=== PATIENT | female | born 1930 | race Caucasian/White ===

== ENCOUNTER 2017-12-17 09:54 | Inpatient (IN) | payer OTHER, MEDICARE ==
[~2017-12-17] VITALS: Ht 157.5 cm; Wt 57.3 kg
[~2017-12-17 09:54] MED LIST: ABILIFY5 M1 PO; AMOXIL 875 MG875 MG PO; ANTIVERT 25MG #1 PAC PO; ARICEPT5 M1 PO; AUGMENTIN 875-1 EACH PO; CLONAZEPAM0.5 M2 PO; CYPROHEPTADINE H4 M1 PO; DEPAKOTE ER500 M1 PO; DEPAKOTE125 M1 PO; DIVALPROEX SOD250 M2 PO; LIPITOR10 M1 PO; OS-CAL 500+D31 EAC1 PO; SYNTHROID25 MCG PO; SYNTHROID88 MCG PO; TRAZODONE HCL100 M1 PO
--- NOTE | 2017-12-17 10:05 | ED DYSPNEA/ASTHMA COMPLAINT ---
History of Present Illness General Chief Complaint: Dyspnea (COPD, CHF, Other) Stated Complaint: BIBA SOB Source: patient, family, old records, EMS Exam Limitations: dementia Vital Signs & Intake/Output Vital Signs & Intake/Output Vital Signs Date Time Temp Pulse Resp B/P B/P Pulse O2 O2 Flow FiO2 Mean Ox Delivery Rate 12/17 1533 98.8 92 20 131/98 92 Nasal 2.0L Cannula 12/17 1352 99.0 84 26 130/60 94 Room Air 12/17 1155 97.5 87 18 136/60 94 Nasal 3.5L Cannula 12/17 1021 89 Room Air 12/17 1003 98.1 95 20 141/63 90 Room Air Allergies Coded Allergies: Influenza Virus Vaccines (UNKNOWN 07/10/17) haloperidol (UNKNOWN 07/10/17) Reconcile Medications Alendronate Sodium 70 MG TABLET 1 TAB PO QW BONE (Reported) in the morning, at least 30 minutes before the first food, beverage, or medication of the day Aripiprazole (Abilify) 5 MG TABLET 5 MG PO DAILY AC MENTAL HEALTH (Reported) Atorvastatin Calcium (Lipitor) 10 MG TABLET 10 MG PO DAILY CHOLESTEROL ( Reported) Calcium Carbonate/Vitamin D3 (Os-You 500+D3 Caplet) 500 MG-200 TABLET 600 MG PO DAILY AC BONE HEALTH (Reported) Cholecalciferol (Vitamin D3) (Vitamin D) 400 UNIT TABLET 1 TAB PO DAILY VITAMIN SUPPORT (Reported) Clonazepam 0.5 MG TABLET 1 TAB PO DAILY ANXIETY (Reported) Cyproheptadine HCl 4 MG TABLET 4 MG PO DAILY U (Reported) Divalproex Sodium 250 MG TABLET.DR 1 TAB PO AT BEDTIME NEURO (Reported) Divalproex Sodium (Depakote ER) 500 MG TAB.ER.24H 1 TAB PO DAILY NEURO ( Reported) Donepezil HCl (Aricept) 5 MG TABLET 10 MG PO DAILY DEMENTIA (Reported) Levothyroxine Sodium 75 MCG TABLET 1 TAB PO DAILY AC THYROID (Reported) Multivitamin (Daily Multiple Vitamin) 1 EACH TABLET 1 TAB PO DAILY VITAMIN SUPPORT (Reported) Trazodone HCl 100 MG TABLET 1 TAB PO QPM DEPRESSION (Reported) Triage Nurses Notes Reviewed? yes HPI: Patient brought in from home by ambulance for increasing shortness of breath and weakness. Family states that the patient has been unable to get out of bed for the past 2-3 days. Patient has dementia and is unable to provide any history. Upon EMS arrival patient had a room air saturation of 89% but it increases 94% on oxygen. Past History Travel History Traveled to [place] past 21 day No Medical History Any Pertinent Medical History? 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 No Review of Systems Review of Systems Constitutional: Reports: see HPI. Physical Exam Physical Exam General Appearance: well developed/nourished, alert, awake, anxious, moderate distress Head: atraumatic, normal appearance Eyes: Bilateral: PERRL, EOMI. Ears, Nose, Throat: normal pharynx, normal ENT inspection, hearing grossly normal Neck: normal inspection, supple, JVD Respiratory: crackles, rales, respiratory distress Cardiovascular: regular rate/rhythm, normal peripheral pulses Gastrointestinal: normal bowel sounds, soft, non-tender Extremities: normal inspection, normal capillary refill, normal range of motion Neurologic/Psych: awake, alert, normal mood/affect Skin: intact, normal color, warm/dry Core Measures ACS in differential dx? No CVA/TIA Diagnosis No Sepsis Present: No Sepsis Focused Exam Completed? No Progress Differential Diagnosis: bronchitis, CHF, COPD, pneumonia Plan of Care: Orders Procedure Date/time Status Heart Healthy Diet 12/17 D Active TROPONIN LEVEL 12/17 1706 Active EKG 12/17 1706 Active Pathway - chart 12/17 1539 Active House Staff 12/17 1539 Active Code Status 12/17 1539 Active Patient Data 12/17 1313 Active Hsieh, Insertion/Removal/Asses 12/17 1306 Active CULTURE,URINE 12/17 1306 Active ED Holding Orders 12/17 1253 Active Admit to inpatient 12/17 1253 Active Vital Signs 12/17 1253 Active Code Status 12/17 1253 Complete THYROID STIMULATING HORMONE 12/17 1054 Active THYROXINE 12/17 1054 Active Telemetry/Director Of Cardiac Rehabilitation 12/17 1005 Active URINALYSIS 12/17 1005 Complete COMPREHENSIVE METABOLIC PANEL 12/17 1005 Active CBC WITHOUT DIFFERENTIAL 12/17 1005 Complete B-TYPE NATRIURETIC PEP (BNP) 12/17 1005 Active EKG 12/17 1005 Active Intake & Output 12/17 1001 Active PT Evaluate & Treat 12/17 UNK Active Lab Add-on Test 12/17 UNK Active Weight 12/17 UNK Active VTE Mechanical Prophylaxis 12/17 UNK Active MISTAKE 12/17 UNK Complete Intake & Output 12/17 UNK Active Current Medications Sig/Cordell Start time Last Medication Dose Stop Time Status Admin Alendronate Sodium 70 MG Larose@0700 12/20 07 AC (Fosamax) Atorvastatin Calcium 10 MG 1700 12/18 170 AC (Lipitor) Calcium/Vitamin D 1 TAB DAILY 12/18 09 AC (Caltrate 600 + D) Cholecalciferol 400 IU DAILY 12/18 09 AC (Vitamin D) Clonazepam 0.5 MG DAILY 12/18 09 AC (KlonoPIN) 12/25 0859 Cyproheptadine HCl 4 MG DAILY 12/18 09 AC (Periactin 4 MG Tab.) Divalproex Sodium 500 MG DAILY 12/18 09 AC (Depakote) Donepezil HCl 10 MG DAILY 12/18 09 AC (Aricept) Enoxaparin Sodium 40 MG DAILY 12/18 09 AC (Lovenox) Furosemide 40 MG DAILY 12/18 09 AC (Lasix) Multivitamins 1 TAB DAILY 12/18 09 AC Therapeutic (Theragran-M Vitamins Tabs) Aripiprazole 5 MG DAILY AC 12/18 07 AC (Abilify) Levothyroxine Sodium 0.075 MG DAILY AC 12/18 07 AC (Synthroid) Divalproex Sodium 250 MG AT BEDTIME 12/17 2099 AC (Depakote) Trazodone HCl 100 MG QPM 12/17 2099 AC (Desyrel) Laboratory Tests 12/17/17 1530: Urinalysis LIGHT H, Urine Color YEL, Urine Clarity HAZY H, Urine pH 6.5, Ur Specific [place] 1.010, Urine Protein NEG, Urine Ketones NEG, Urine Nitrite NEG, Urine Bilirubin NEG, Urine Urobilinogen 0.2, Ur Leukocyte Esterase SMALL H, Ur Microscopic SEDIMENT EXAMINED, Urine RBC RARE, Urine WBC RARE, Ur Epithelial Cells FEW, Urine Bacteria RARE H, Urine Hemoglobin TRACE-INTACT, Urine Glucose NEG 12/17/17 1054: Anion Gap 9, Estimated GFR 60, BUN/Creatinine Ratio 24.4, Glucose 99, Calcium 8.5, Total Bilirubin 0.5, AST 35, ALT 15, Alkaline Phosphatase 56, Pro-B- Natriuretic Pept 9520 H, Total Protein 6.1 L, Albumin 3.3 L, Globulin 2.8, Albumin/Globulin Ratio 1.2, TSH Pending, Thyroxine (T4) 7.7 12/17/17 1016: CBC w Diff NO MAN DIFF REQ, RBC 5.34, MCV 88.7, MCH 28.8, MCHC 32.4 L, RDW 15.5 H, MPV 9.3, Gran % 82.1 H, Lymphocytes % 6.2 L, Monocytes % 11.5 H, Eosinophils % 0, Basophils % 0.2, Absolute Granulocytes 5.2, Absolute Lymphocytes 0.4 L, Absolute Monocytes 0.7 H, Absolute Eosinophils 0, Absolute Basophils 0 Microbiology 12/17 1530 URINE ROUT: Urine Culture - RECD Diagnostic Imaging: Viewed by Me: Radiology Read. Discussed w/RAD: Radiology Read. CXR Impression: PATIENT: REJI CALDERON PRESENT AGE: 87 PATIENT ACCOUNT NO: [id number] : 32 LOCATION: [facility] ORDERING PHYSICIAN: Koko Bear MD SERVICE DATE: 12/17/17-1005 EXAM TYPE: RAD - XRY- PORTABLE CHEST XRAY EXAMINATION: XR PORTABLE CHEST CLINICAL INFORMATION: Pulmonary edema. COMPARISON: Chest radiograph 07/09/2017. TECHNIQUE: Portable frontal view of the chest was obtained. FINDINGS: The cardiac silhouette is at upper limits of normal size and there is hilar vascular engorgement. Mild prominence of interstitial markings. No overt consolidative disease. Trace effusions. Upper mediastinal contours are normal. No acute osseous finding. Multiple surgical clips along left lateral chest wall noted. IMPRESSION: Hilar vascular engorgement, early interstitial edema, and trace effusions. No overt airspace disease. DICTATED BY: Martina CHRISTINE,Geronimo Goff DATE/TIME DICTATED:12/17/17 / 1114 COIN MACHINE OPERATOR:CHICHO DATE/TIME TRANSCRIBED:12/17/17 / 1114 CONFIDENTIAL, DO NOT COPY WITHOUT APPROPRIATE AUTHORIZATION. <Electronically signed in Other Vendor System> SIGNED BY: Geronimo Mack MD 12/17/17 1124 Initial ED EKG: NSR, LVH, no ST T wave changes Prior EKG: unchanged Rhythm Strip: normal sinus rhythm Departure Departure Disposition: STILL A PATIENT Condition: Stable Clinical Impression Primary Impression: Pulmonary edema Referrals: Louis CHRISTINE,Gregory Lakhani (PCP/Family) Departure Forms: Customer Survey General Discharge Information Admission Note Spoke With: Adiel Nick MD Documentation of Exam: Documentation of any treatments & extenuating circumstances including Concerns Regarding Discharge (functional status, medication knowledge or non-compliance, living conditions, etc.) that warrant an admission rather than observation: [IV DIURESIS, WILL NEED TO BE GENTLE GIVEN HERAORTIC STENOSIS,CARDIOLOGY CONSULTATION, TELE MONITORING] Critical Care Note Critical Care Note Critical Care Time: non-applicable
[2017-12-17 10:38] LABS: ABSOLUTE BASOPHIL COUNT 0 /CUMM (0.0-0.2); ABSOLUTE EOSINOPHIL COUNT 0 /CUMM (0.0-0.7); ABSOLUTE GRANULOCYTE CT 5.2 /CUMM (1.4-6.5); ABSOLUTE LYMPH COUNT 0.4 /CUMM (1.2-3.4); ABSOLUTE MONOCYTE COUNT 0.7 /CUMM (0.10-0.60); BASOPHIL % 0.2 % (0.0-2.0); EOSINOPHIL % 0 % (0-5); GRANULOCYTE % 82.1 % (42.2-75.2); HEMATOCRIT 47.4 % (37-47); MEAN CORPUSCULAR HGB 28.8 PG (27.0-31.0); MEAN CORPUSCULAR HGB CONC 32.4 G/DL (33.0-37.0); MEAN CORPUSCULAR VOLUME 88.7 FL (81.0-99.0); MEAN PLATELET VOLUME 9.3 FL (7.4-10.4); PLATELET COUNT 147 /CUMM (130-400); RBC DISTRIBUTION WIDTH 15.5 % (11.5-14.5); RED BLOOD CELL CT 5.34 /CUMM (4.20-5.40); WHITE BLOOD CELL COUNT 6.3 /CUMM (4.8-10.8)
[2017-12-17] MEDS ORDERED: ALENDRONATE SOD70 M2 PO (11:08)
[2017-12-17] MEDS ORDERED: DAILY MULTIPLE1 EACH PO (11:11)
[2017-12-17] MEDS ORDERED: LEVOTHYROXINE75 MCG PO (11:11)
[2017-12-17] MEDS ORDERED: VITAMIN D400 UNI2 PO (11:14)
--- NOTE | 2017-12-17 11:24 | RADIOLOGY REPORT ---
EXAMINATION: XR PORTABLE CHEST CLINICAL INFORMATION: Pulmonary edema. COMPARISON: Chest radiograph 07/09/2017. TECHNIQUE: Portable frontal view of the chest was obtained. FINDINGS: The cardiac silhouette is at upper limits of normal size and there is hilar vascular engorgement. Mild prominence of interstitial markings. No overt consolidative disease. Trace effusions. Upper mediastinal contours are normal. No acute osseous finding. Multiple surgical clips along left lateral chest wall noted. IMPRESSION: Hilar vascular engorgement, early interstitial edema, and trace effusions. No overt airspace disease.
--- NOTE | 2017-12-17 14:58 | History & Physical ---
Eleuterio Barajas MD 12/17/17 4295: General Information and HPI MD Statement: I have seen and personally examined REJI CALDERON and documented this H&P. The patient is a 87 year old F who presented with a patient stated chief complaint of dyspnea. Source of Information: family, old records Exam Limitations: unable to give history, clinical condition, poor historian History of Present Illness: 87 year old female with past medical history significant for HLD, bipolar, Graves' disease, Alzheimer dementia, depression, history of breast cancer, hypertension, severe aortic stenosis and recently admitted with altered mental status, hypothyroidism, and right lower extremity cellulitis treated with a course of antibiotics. The patient was brought in from home by ambulance for increasing shortness of breath with a cough and progressive weakness. The patient reportedly ambulates with a walker at baseline but has now been unable to get out of bed for the past several days. The patient has dementia and is unable to provide any history. She was saturating in the high 80s on room air and was started on supplemental oxygen in the ED and given one dose 40mg IV lasix. Vitals signs were normal, labs were notable for elevated proBNP, BUN, and TSH but otherwise normal. Her chest x-ray showed vascular congestion and she was admitted to telemetry for congestive heart failure. According to her family, she has gradually deconditioning over the past few months acutely worsening over the past week. The patient's reports that she is not eating, and drinking well, unable to ambulate. The patient hasn't complained of any significant chest pain. She can lay flat without dyspnea. Review of systems was essentially negative other than noted above according to the family. Allergies/Medications Allergies: Coded Allergies: Influenza Virus Vaccines (UNKNOWN 07/10/17) haloperidol (UNKNOWN 07/10/17) Home Med list Alendronate Sodium 70 MG TABLET 1 TAB PO QW BONE (Reported) in the morning, at least 30 minutes before the first food, beverage, or medication of the day Aripiprazole (Abilify) 5 MG TABLET 5 MG PO DAILY AC MENTAL HEALTH (Reported) Atorvastatin Calcium (Lipitor) 10 MG TABLET 10 MG PO DAILY CHOLESTEROL ( Reported) Calcium Carbonate/Vitamin D3 (Os-You 500+D3 Caplet) 500 MG-200 TABLET 600 MG PO DAILY AC BONE HEALTH (Reported) Cholecalciferol (Vitamin D3) (Vitamin D) 400 UNIT TABLET 1 TAB PO DAILY VITAMIN SUPPORT (Reported) Clonazepam 0.5 MG TABLET 1 TAB PO DAILY ANXIETY (Reported) Cyproheptadine HCl 4 MG TABLET 4 MG PO DAILY U (Reported) Divalproex Sodium 250 MG TABLET.DR 1 TAB PO AT BEDTIME NEURO (Reported) Divalproex Sodium (Depakote ER) 500 MG TAB.ER.24H 1 TAB PO DAILY NEURO ( Reported) Donepezil HCl (Aricept) 5 MG TABLET 10 MG PO DAILY DEMENTIA (Reported) Levothyroxine Sodium 75 MCG TABLET 1 TAB PO DAILY AC THYROID (Reported) Multivitamin (Daily Multiple Vitamin) 1 EACH TABLET 1 TAB PO DAILY VITAMIN SUPPORT (Reported) Trazodone HCl 100 MG TABLET 1 TAB PO QPM DEPRESSION (Reported) Compliance With Home Meds: GOOD Past History Travel History Traveled to [place] past 21 day No Medical History Neurological: Alzheimer's disease, dementia EENT: EYES SURGERY FOR GRAVES Cardiovascular: aortic stenosis, hypertension Respiratory: NONE Gastrointestinal: NONE Hepatic: NONE Renal: NONE Musculoskeletal: NONE Psychiatric: bipolar disease, depression Endocrine: Grave's disease, hypothyroidism Blood Disorders: NONE Cancer(s): 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 Ambulation: walker IADLs Needs Assist: shopping, housework, finances, food prep, telephone, transportation, medication admin. Review of Systems Review of Systems Constitutional: Reports: malaise, weakness. Denies: chills, fever. EENTM: Reports: no symptoms. Cardiovascular: Denies: chest pain, orthopena, peripheral edema. Respiratory: Reports: cough, short of breath, sputum production, wheezing. GI: Denies: abdominal pain, diarrhea, nausea, vomiting. Genitourinary: Reports: no symptoms. Musculoskeletal: Reports: no symptoms. Skin: Reports: no symptoms. Neurological/Psychological: Reports: no symptoms. Hematologic/Endocrine: Reports: no symptoms. Immunologic/Allergic: Reports: no symptoms. All Other Systems: Reviewed and Negative Exam & Diagnostic Data Last 24 Hrs of Vital Signs/I&O Vital Signs Date Time Temp Pulse Resp B/P B/P Pulse O2 O2 Flow FiO2 Mean Ox Delivery Rate 12/17 1352 99.0 84 26 130/60 94 Room Air 12/17 1155 97.5 87 18 136/60 94 Nasal 3.5L Cannula 12/17 1021 89 Room Air 12/17 1003 98.1 95 20 141/63 90 Room Air Intake & Output 12/17 1600 12/17 0800 12/17 0000 Intake Total Output Total Balance Patient 63.503 kg Weight Weight Estimated Measurement Method Physical Exam General Appearance Cooperative, Mild Distress, mild tachypnea on supplemental oxygen Cardiovascular Regular Rate, Normal S1, Normal S2, systolic murmur 2/6 Lungs diminished bibasilarly, transmitted upper airway sounds, no wheeze Abdomen Normal Bowel Sounds, Soft, No Tenderness, No Masses, midline incision scar Extremities No Clubbing, No Cyanosis, No Edema, No Tenderness/Swelling, diminished right dorsalis pedal pulse cold right foot, sensation and motor function intact Last 24 Hrs of Labs/Nicolás: Laboratory Tests 12/17/17 1054: Anion Gap 9, Estimated GFR 60, BUN/Creatinine Ratio 24.4, Glucose 99, Calcium 8.5, Total Bilirubin 0.5, AST 35, ALT 15, Alkaline Phosphatase 56, Pro-B- Natriuretic Pept 9520 H, Total Protein 6.1 L, Albumin 3.3 L, Globulin 2.8, Albumin/Globulin Ratio 1.2 12/17/17 1016: CBC w Diff NO MAN DIFF REQ, RBC 5.34, MCV 88.7, MCH 28.8, MCHC 32.4 L, RDW 15.5 H, MPV 9.3, Gran % 82.1 H, Lymphocytes % 6.2 L, Monocytes % 11.5 H, Eosinophils % 0, Basophils % 0.2, Absolute Granulocytes 5.2, Absolute Lymphocytes 0.4 L, Absolute Monocytes 0.7 H, Absolute Eosinophils 0, Absolute Basophils 0 Microbiology 12/17 1306 URINE ROUT: Urine Culture - ORD Diagnostic Data EKG Results sinus rhythm lad lvh CXR Results The cardiac silhouette is at upper limits of normal size and there is hilar vascular engorgement. Mild prominence of interstitial markings. No overt consolidative disease. Trace effusions. Upper mediastinal contours are normal. No acute osseous finding. Multiple surgical clips along left lateral chest wall noted. Other Results Echocardiogram 07/2017 CONCLUSIONS Normal global left ventricular size, wall thickness, systolic function with no obvious regional wall motion abnormalities. Left ventricular ejection fraction is estimated at >65 %. Mild left atrial dilatation. Mild thickening/calcification of the mitral valve leaflets. Mild to moderate mitral annular calcification. No mitral regurgitation. Diffuse thickening of the aortic valve cusps with reduced excursion. Doppler not adequate for evaluation of aortic stenosis. No aortic regurgitation. Unable to estimate the right ventricular systolic pressure. Aortic arch not well visualized. Assessment/Plan Assessment: 87 year old female with PMH of hyperlipidemia, bipolar, Graves' disease now hypothyroid, Alzheimer dementia, depression, history of breast cancer, hypertension, severe aortic stenosis presents with failure to thrive, cough and dyspnea. Dyspnea: likely secondary to HFpEF and severe aortic stenosis Was hypoxic on room air 88-89%, started on supplemental oxygen Received 40mg IV lasix x 1 dose in the ED proBNP 9500, chest x-ray hilar vascular engorgement, early interstitial edema, trace effusions. No overt airspace disease. No fever or leukocytosis suggestive of infection Check serial troponins and EKGs Admit to telemetry for rhythm monitoring Cardiology consultation Continue lasix 40mg IV daily Echocardiogram 07/2017 CONCLUSIONS Normal global left ventricular size, wall thickness, systolic function with no obvious regional wall motion abnormalities. Left ventricular ejection fraction is estimated at >65 %. Mild left atrial dilatation. Mild thickening/calcification of the mitral valve leaflets. Mild to moderate mitral annular calcification. No mitral regurgitation. Diffuse thickening of the aortic valve cusps with reduced excursion. Doppler not adequate for evaluation of aortic stenosis. No aortic regurgitation. Unable to estimate the right ventricular systolic pressure. Aortic arch not well visualized. Aortic stenosis Echocardiogram moderate to severe aortic stenosis Calcified aortic stenosis with a peak gradient of 50 mmHg, a mean gradient of 36 mmHg Aortic valve area 1.0-1.1 cm Cardiology consulted Avoid hypotension Normotensive on presentation Hypothyroidism: Continue synthroid 75mcg although her synthroid was increased to 88mcg on prior discharge in July 2017, TSH elevated Mental health: Continue abilify, trazodone, clonazepam, depakote, and donepezil Swallow evaluation PT consult DVT ppx-lovenox 40mg subcutaneous daily DNR/DNI As Ranked By This Provider Problem List: 1. Pulmonary edema 2. Aortic stenosis 3. Gait instability Core Measures/Misc (04/19) Acute Coronary Syndrome ACS Diagnosis: No Congestive Heart Failure Congestive Heart Failure Diagnosis Yes Last Known EF % 65 Cerebrovascular Accident CVA/TIA Diagnosis: No VTE (View Protocol) VTE Risk Factors Age>40 No Mechanical VTE Prophylaxis d/t N/A MechProphylax Ordered No VTE Pharm Prophylaxis d/t NA PharmProphylax ordered Sepsis (View protocol) Sepsis Present: No Dominic Lew 12/17/17 1653: Resident Review Statement Resident Statement: examined this patient, discussed with programming intern, agreed with programming intern, discussed with family, reviewed EMR data (avail), reviewed images Other Findings: 86-year-old with a medical history of hyperlipidemia, bipolar, Graves' disease , Alzheimer dementia, depression, history of breast cancer, hypertension, brought in by for evaluation of worsening deconditioning over the past few months which has been severe since the past few days. Today she was to walk on her own and her had to escort her from the bedroom to the bathroom he has also had been having difficulty giving her her medications and he has noticed decreased p.o. intake. Denies fever, pain, constipation, dysuria, fall, worsening swelling of legs. She is able to lie down flat. Her is the main caregiver and has some aide that comes in for a few hours during the day. Vitals on admission temperature 99, heart rate 84, respiratory 26, blood pressure 130/60, she was noted to saturate 89% on room air improved to 92% on 2 L. Examination pertinent for cachectic looking woman, CVS examination pertinent for systolic murmur heard in all areas loudest in the aortic area and radiation to right carotids bibasilar crackles. Rest examination as above. CBC and BEP unremarkable, proBNP 9520 Chest x-ray shows central vascular engorgement and interstitial edema, EKG normal sinus rhythm, LVH with left axis deviation heart rate of 85 QTC 450. Problem list: ?Acute on chronic congestive heart failure Aortic stenosis Levothyroxine Bipolar Alzheimer's Deconditioning Plan we will admit to telemetry floor for continuous cardiac monitoring, vitals per protocol Follow-up echocardiogram, we will trend troponin EKG We will continue with IV diuresis, strict I's and O's accurate daily weights cardio consult Follow-up thyroid function test will continue rest of her home medications Heart healthy diet DVT prophylaxis subcu Lovenox PT to evaluate and treat CODE STATUS DNR/DNI, family does not wish any aggressive measures including feeding tubes or central lines Diego Guidry MD 12/17/17 2008: Attending MD Review Statement Attending Statement Attending MD Statement: examined this patient, discuss w/resident/PA/SENIOR SYSTEMS ARCHITECT, agreed w/resident/PA/SENIOR SYSTEMS ARCHITECT, reviewed EMR data (avail) Attending Assessment/Plan: Agree with resident plan. Will start IV diuresis with care not to overdiurese given , cardiology consult, urine culture, continue home meds, eventual PT eval, DVT PPx
[2017-12-17 18:53] VITALS: BP 108/70
--- NOTE | 2017-12-17 19:09 | Cons- Cardiology ---
General Information and HPI Consulting Request Date of Consult: 12/17/17 Requested By: Diego Guidry MD Reason for Consult: Heart failure, aortic stenosis History of Present Illness: The patient is an 87-year-old female with history of hypertension, hyperlipidemia, moderate to severe aortic stenosis, and chronic diastolic heart failure who presents with shortness of breath and cough. The patient ambulates with a walker at baseline, however recently she has had increasing shortness of breath and she has been unable to get out of bed for the past several days. The patient is able to give only limited history secondary to dementia. She was noted on presentation to have decreased oxygen saturation and evidence of congestive heart failure. She was treated in the emergency department with IV Lasix, and she was admitted for further management. 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 She has been gradually decreasing her activity over the past few months with acute worsening over the past week. She has been unable to ambulate, and has recently had poor p.o. intake. She has been noted to have recent coughing. No chest pain. No palpitations. No syncope. No orthopnea. No nausea or vomiting. No lightheadedness or dizziness. Allergies/Medications Allergies: Coded Allergies: Influenza Virus Vaccines (UNKNOWN 07/10/17) haloperidol (UNKNOWN 07/10/17) Home Med List: Alendronate Sodium 70 MG TABLET 1 TAB PO QW BONE (Reported) in the morning, at least 30 minutes before the first food, beverage, or medication of the day Aripiprazole (Abilify) 5 MG TABLET 5 MG PO DAILY AC MENTAL HEALTH (Reported) Atorvastatin Calcium (Lipitor) 10 MG TABLET 10 MG PO DAILY CHOLESTEROL ( Reported) Calcium Carbonate/Vitamin D3 (Os-You 500+D3 Caplet) 500 MG-200 TABLET 600 MG PO DAILY AC BONE HEALTH (Reported) Cholecalciferol (Vitamin D3) (Vitamin D) 400 UNIT TABLET 1 TAB PO DAILY VITAMIN SUPPORT (Reported) Clonazepam 0.5 MG TABLET 1 TAB PO DAILY ANXIETY (Reported) Cyproheptadine HCl 4 MG TABLET 4 MG PO DAILY U (Reported) Divalproex Sodium 250 MG TABLET.DR 1 TAB PO AT BEDTIME NEURO (Reported) Divalproex Sodium (Depakote ER) 500 MG TAB.ER.24H 1 TAB PO DAILY NEURO ( Reported) Donepezil HCl (Aricept) 5 MG TABLET 10 MG PO DAILY DEMENTIA (Reported) Levothyroxine Sodium 75 MCG TABLET 1 TAB PO DAILY AC THYROID (Reported) Multivitamin (Daily Multiple Vitamin) 1 EACH TABLET 1 TAB PO DAILY VITAMIN SUPPORT (Reported) Trazodone HCl 100 MG TABLET 1 TAB PO QPM DEPRESSION (Reported) Current Medications: Current Medications Sig/Cordell Start time Last Medication Dose Route Stop Time Status Admin Alendronate Sodium 70 MG Larose@0700 12/20 0700 AC PO Aripiprazole 5 MG DAILY AC 12/18 07 AC PO Atorvastatin Calcium 10 MG 1700 12/18 1700 AC PO Calcium/Vitamin D 1 TAB DAILY 12/18 09 AC PO Cholecalciferol 400 IU DAILY 12/18 09 AC PO Clonazepam 0.5 MG DAILY 12/18 09 AC PO 12/25 0859 Cyproheptadine HCl 4 MG DAILY 12/18 09 AC PO Divalproex Sodium 500 MG DAILY 12/18 09 AC PO Divalproex Sodium 250 MG AT BEDTIME 12/17 2100 AC PO Donepezil HCl 10 MG DAILY 12/18 09 AC PO Enoxaparin Sodium 40 MG DAILY 12/18 09 AC SC Furosemide 40 MG DAILY 12/18 09 AC IV Furosemide 0 .STK-MED ONE 12/17 1303 DC IV Furosemide 40 MG ONCE ONE 12/17 1245 DC 12/17 IV 12/17 1246 1308 Levothyroxine Sodium 0.075 MG DAILY AC 12/18 0700 AC PO Multivitamins 1 TAB DAILY 12/18 0900 AC Therapeutic PO Trazodone HCl 100 MG QPM 12/17 2100 AC PO Review of Systems Review of Systems: No fever. No chills. No rash. No tremor. No melena. All other systems were reviewed, and were noted to be negative. 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 Family history was reviewed with the patient and is negative for known premature cardiac disease. Psychosocial History Where Do You Live? Home Services at Home: None Smoking Status: Unknown If Ever Smoked Functional Ability ADLs Needs Assist: dressing, eating, toileting, bathing. Ambulation: walker IADLs Needs Assist: shopping, housework, finances, food prep, telephone, transportation, medication admin. ECHO Results (as available) Report: CONCLUSIONS Normal global left ventricular size, wall thickness, systolic function with no obvious regional wall motion abnormalities. Left ventricular ejection fraction is estimated at >65 %. Mild left atrial dilatation. Mild thickening/calcification of the mitral valve leaflets. Mild to moderate mitral annular calcification. No mitral regurgitation. Diffuse thickening of the aortic valve cusps with reduced excursion. Doppler not adequate for evaluation of aortic stenosis. No aortic regurgitation. Unable to estimate the right ventricular systolic pressure. Aortic arch not well visualized. Exam & Diagnostic Data Vital Signs and I&O Vital Signs Date Time Temp Pulse Resp B/P B/P Pulse O2 O2 Flow FiO2 Mean Ox Delivery Rate 12/17 1630 92 Nasal 4.0L Cannula 12/17 1533 98.8 92 20 131/98 92 Nasal 2.0L Cannula 12/17 1352 99.0 84 26 130/60 94 Room Air 12/17 1155 97.5 87 18 136/60 94 Nasal 3.5L Cannula 12/17 1021 89 Room Air 12/17 1003 98.1 95 20 141/63 90 Room Air Intake & Output 12/17 1600 12/17 0800 12/17 0000 12/16 1600 12/16 0800 12/16 0000 Intake Total Output Total 100 Balance -100 Output, Urine 100 Patient 140 lb Weight Weight Estimated Measurement Method Physical Exam: Gen: The patient is in no acute distress HEENT: Normal nose, ears, and oropharynx. Pupils equal bilaterally. Conjunctiva normal. Neck: Supple with no JVD, no masses, and no thyromegaly Lungs: Bilateral rales with normal respiratory effort Heart: RRR, S1, S2, 2/6 systolic murmur. No peripheral edema, 2+ pulses in the lower extremities bilaterally Abdomen: Soft, nontender, no masses. No hepatomegaly. No splenomegaly Extremities: No clubbing or cyanosis. Normal muscle strength in the upper and lower extremities Skin: Normal skin turgor with no skin ulcers or lesions noted. Neuro: Cranial nerves intact. Sensation intact Psych: Alert and oriented x 3 with appropriate affect Labs/Nicolás Results: Laboratory Tests 12/17 12/17 12/17 1800 1530 1054 Chemistry Sodium (137 - 145 mmol/L) 141 Potassium (3.5 - 5.1 mmol/L) 4.6 Chloride (98 - 107 mmol/L) 102 Carbon Dioxide (22 - 30 mmol/L) 30 Anion Gap (5 - 16) 9 BUN (7 - 17 mg/dL) 22 H Creatinine (0.5 - 1.0 mg/dL) 0.9 Estimated GFR (>60 ml/min) 60 BUN/Creatinine Ratio (7 - 25 %) 24.4 Glucose (65 - 99 mg/dL) 99 Calcium (8.4 - 10.2 mg/dL) 8.5 Total Bilirubin (0.2 - 1.3 mg/dL) 0.5 AST (14 - 36 U/L) 35 ALT (9 - 52 U/L) 15 Alkaline Phosphatase (<127 U/L) 56 Troponin I Pending Xks-L-Myrelpmcess Pept (<125 pg/mL) 9520 H Total Protein (6.3 - 8.2 g/dL) 6.1 L Albumin (3.5 - 5.0 g/dL) 3.3 L Globulin (1.9 - 4.2 gm/dL) 2.8 Albumin/Globulin Ratio (1.1 - 2.2 %) 1.2 TSH (0.270 - 4.200 uIU/mL) 4.650 H Thyroxine (T4) (4.5 - 10.9 ug/dL) 7.7 Urines Urinalysis LIGHT H Urine Color (YEL,AMB,STR) YEL Urine Clarity (CLEAR) HAZY H Urine pH (5.0 - 8.0) 6.5 Ur Specific [place] (1.001 - 1.035) 1.010 Urine Protein (NEG,<30 MG/DL) NEG Urine Ketones (NEG) NEG Urine Nitrite (NEG) NEG Urine Bilirubin (NEG) NEG Urine Urobilinogen (0.1 - 1.0 EU/dl) 0.2 Ur Leukocyte Esterase (NEG) SMALL H Ur Microscopic SEDIMENT EXAMINED Urine RBC (0 - 5 /HPF) RARE Urine WBC (0 - 2 /HPF) RARE Ur Epithelial Cells (NONE,FEW) FEW Urine Bacteria (NEG/NONE) RARE H Urine Hemoglobin (NEG) TRACE-INTACT Urine Glucose (N MG/DL) NEG 12/17 1016 Hematology CBC w Diff NO MAN DIFF REQ WBC (4.8 - 10.8 /CUMM) 6.3 RBC (4.20 - 5.40 /CUMM) 5.34 Hgb (12.0 - 16.0 G/DL) 15.4 Hct (37 - 47 %) 47.4 H MCV (81.0 - 99.0 FL) 88.7 MCH (27.0 - 31.0 PG) 28.8 MCHC (33.0 - 37.0 G/DL) 32.4 L RDW (11.5 - 14.5 %) 15.5 H Plt Count (130 - 400 /CUMM) 147 MPV (7.4 - 10.4 FL) 9.3 Gran % (42.2 - 75.2 %) 82.1 H Lymphocytes % (20.5 - 51.1 %) 6.2 L Monocytes % (1.7 - 9.3 %) 11.5 H Eosinophils % (0 - 5 %) 0 Basophils % (0.0 - 2.0 %) 0.2 Absolute Granulocytes (1.4 - 6.5 /CUMM) 5.2 Absolute Lymphocytes (1.2 - 3.4 /CUMM) 0.4 L Absolute Monocytes (0.10 - 0.60 /CUMM) 0.7 H Absolute Eosinophils (0.0 - 0.7 /CUMM) 0 Absolute Basophils (0.0 - 0.2 /CUMM) 0 Diagnostic Data EKG Results EKG tracings independently reviewed, and reveals sinus tachycardia at 94 bpm, frequent premature atrial contractions, left atrial abnormality, left ventricular hypertrophy, inferior infarct age undetermined CXR Results Hilar vascular engorgement, early interstitial edema, and trace effusions. No overt airspace disease. Other Results Echocardiogram 07/10/17: Normal global left ventricular size, wall thickness, systolic function with no obvious regional wall motion abnormalities. Left ventricular ejection fraction is estimated at >65 %. Mild left atrial dilatation. Mild thickening/calcification of the mitral valve leaflets. Mild to moderate mitral annular calcification. No mitral regurgitation. Aortic arch not well visualized. Diffuse thickening of the aortic valve cusps with reduced excursion. [id number] aortic stenosis. No aortic regurgitation. Assessment/Plan Assessment/Plan The patient is an 86-year-old female with history of hypertension, moderate to severe aortic stenosis, and chronic diastolic heart failure brought to the hospital with shortness of breath and decreased oxygen saturation. Chest x-ray and elevated proBNP are consistent with acute on chronic diastolic heart failure. Recommendations: * Diurese with Lasix 40 mg IV daily * Follow input and output with daily weights * Check basic blood profile daily * Repeat echocardiogram to reevaluate aortic stenosis Consult Acknowledgment - Thank you for your consult request.
[2017-12-17 20:22] VITALS: BP 118/80
--- NOTE | 2017-12-17 20:43 | Event Note ---
Event Note Event Note: With troponin of 4.5, no EKG changes and patient still not complaining of any chest pain/pressure, I spoke with naphthalene operator Dr Rawls, [facility] suggested full dose ASA once, ASA 81 mg from morning, IV Heparin drip per ACS protocol, and trend troponin and EKG. Any changs will be notified to Dr Rawls immediately. Orders placed and nursing staff notified. I also added statin on the regimen. Betablocker avoided due to CHF exacerbation. Of note, troponin was not ordered in the ED and the lab add-on for troponin was not possibe due to insufficient amount of sample per lab staff. Attending Dr Villafuerte notified too. 2040 hrs: I was notified by nursing staff that patient's HR was in 160s. Assessment Patient did not appear in any distress and speaking in full sentences, has nasal canula, HR irregularly irregular in 160s, BP by Doppler SBP 75 mm Hg, STAT EKG- atrial fibrillation with RVR @ 160, V3-[address]-depression. Right side precordial EKG done, no ST-segment mirror image but 1-1.[address] elevation on V4-6. Attending and Designated Broker notified, and per naphthalene operator Dr Rawls, decision to transfer the patient to ICU was made. Patient has severe aortic stenosis and is preload dependent. Due to Acute CHF, she was diuresed with total of 80 mm Hg today. Temp was 99.9 F today. Plan as follows: * 250 ml of IV NS STAT * Recheck her vitals after the bolus and if this decreases her HR and improves her BP, we will reassess for further meaures. Will call Dr Rawls then per his instructions. * If her HR remains high, we will have to start her on rate controlling med like Cardizem, Verapamil, or Amiodarone, with caution about her BP as all three can lower her BP. * Stock of Cardizem verified with pharmacist to be enough for bolus and drip tonight, else enough Verapamil and Amiodarone available. * IV Acetaminophen 1 gm given for fever, which might help reduce her tachycardia as well. * Blood culture (2 sets from vein) ordered. * Lactic acid ordered x2, will follow. * Troponin and EKG at midnight and at 6 am still on as planned. * Family member notified by PGY1 resident Dr Nelly Jackson. They agreed to central line and fluid/med resuscitation, but no intuation or cardiac resuscitation in case of emergency. 2129 hrs: Dr Desir (PGY3 resident in the ICU) made aware of the transfer along with Dr Villafuerte. 2144 hrs: Patient is physically in the ICU. Getting the first set of vitals here.
--- NOTE | 2017-12-17 22:37 | Event Note ---
Event Note Event Note: Background: Patient admitted today for CHF exacerbation, shereceived aggressive hydration in the setting of sever aortic stenosis. BP remains in 70's systolic with doppler, despite given 250ml bolus NS, her HR remained in 150's. Spoke with Dr. Rawls who agreed to start Amiodarone drip with a bolus initially., will also order another 250ml bolus NS. If no improvement of BP and tachycardia despite above, will persue triple lumen with pressors. Patient family was at bedside, the situation explained in details to them, patient's joined later who requested central line if clinically needed.
--- NOTE | 2017-12-17 23:38 | RADIOLOGY REPORT ---
EXAMINATION: XR PORTABLE CHEST CLINICAL INFORMATION: Tachycardia. Desaturation. Shortness of breath. CHF. COMPARISON: Chest x-ray 12/17/2017, 10:20 AM . Chest x-ray 07/09/2017, 08/03/2015 TECHNIQUE: Portable frontal view of the chest was obtained. 11:10 PM FINDINGS: The mild prominence of the central hilar vessels and the interstitial edema seen on the prior chest x-ray this a.m. is persistent. No overt pulmonary edema. No large pleural effusion. Cardiac and mediastinal contours normal. There are calcifications of aortic arch. Surgical clips in the left axilla. IMPRESSION: Persistent vascular congestion and interstitial edema. No significant change since prior chest x-ray this a.m.
[2017-12-18] VITALS: BP 96/00
[2017-12-18 03:09] LABS: PTT 56 SEC (25-37)
[2017-12-18 06:02] LABS: ABSOLUTE BASOPHIL COUNT 0 /CUMM (0.0-0.2); ABSOLUTE EOSINOPHIL COUNT 0 /CUMM (0.0-0.7); ABSOLUTE GRANULOCYTE CT 7.3 /CUMM (1.4-6.5); ABSOLUTE LYMPH COUNT 0.7 /CUMM (1.2-3.4); ABSOLUTE MONOCYTE COUNT 1.4 /CUMM (0.10-0.60); BASOPHIL % 0 % (0.0-2.0); EOSINOPHIL % 0 % (0-5); GRANULOCYTE % 77.5 % (42.2-75.2); MEAN CORPUSCULAR HGB 29.3 PG (27.0-31.0); MEAN CORPUSCULAR HGB CONC 32.9 G/DL (33.0-37.0); MEAN PLATELET VOLUME 9.5 FL (7.4-10.4); PLATELET COUNT 128 /CUMM (130-400); RBC DISTRIBUTION WIDTH 15.5 % (11.5-14.5); RED BLOOD CELL CT 4.74 /CUMM (4.20-5.40)
[2017-12-18 06:18] LABS: HEMATOCRIT 42.2 % (37-47); MEAN CORPUSCULAR VOLUME 89 FL (81.0-99.0); WHITE BLOOD CELL COUNT 9.5 /CUMM (4.8-10.8)
[2017-12-18 08:00] VITALS: BP 130/00
--- NOTE | 2017-12-18 08:10 | Cons- CRCU ---
See Addendum Petey CHRISTINE,[facility] [place] 12/18/17 0810: General Information and HPI Consulting Request Date of Consult: 12/18/17 Requested By: Primary Team History of Present Illness: 87 year old female with past medical history significant for severe , HLD, bipolar, Graves' disease, Alzheimer dementia, depression, history of breast cancer, hypertension, severe aortic stenosis and recently admitted with altered mental status, hypothyroidism, and right lower extremity cellulitis treated with a course of antibiotics. The patient was brought in from home by ambulance for increasing shortness of breath with a cough and progressive weakness. The patient reportedly ambulates with a walker at baseline but has now been unable to get out of bed for the past several days. The patient has dementia and is unable to provide any history. She was saturating in the high 80s on room air and was started on supplemental oxygen in the ED and given one dose 40mg IV lasix. Vitals signs were normal, labs were notable for elevated proBNP, BUN, and TSH but otherwise normal. Her chest x-ray showed vascular congestion and she was admitted to telemetry for congestive heart failure. According to her family, she has gradually deconditioning over the past few months acutely worsening over the past week. The patient's reports that she is not eating, and drinking well, unable to ambulate. The patient hasn't complained of any significant chest pain. She can lay flat without dyspnea. Review of systems was essentially negative other than noted above according to the family. Upon admission to the telemetry floor the patient was found to have hypoxia despite 4 L of oxygen. The patient received an extra dose of Lasix. She then became hypotensive 70s/doppler and was given NS bolus 250ml x1. She was also found to be tachycardic. EKG then revealed afib with V3-[address]- depression. Right side precordial EKG done, no ST-segment mirror image but 1-1.[address] elevation on V4-6. Cardiology wrecommended moving the patient to the ICU for amiodarone drip and an extra dose of 250ml NS bolus. Tylenol was given x1 for mild fever. Blood cx x2 were drawn and lactic acid was draw. The patient returned to [facility] around 1:30AM. She was then also found to have elevated troponin of 4.5. She was asymptomatic. She received full dose asaparin once and started on IV heparin drip. A statin was also started and beta wesley was held due to her CHF. Allergies/Medications Allergies: Coded Allergies: Influenza Virus Vaccines (UNKNOWN 07/10/17) haloperidol (UNKNOWN 07/10/17) Home Med List: Alendronate Sodium 70 MG TABLET 1 TAB PO QW BONE (Reported) in the morning, at least 30 minutes before the first food, beverage, or medication of the day Aripiprazole (Abilify) 5 MG TABLET 5 MG PO DAILY AC MENTAL HEALTH (Reported) Atorvastatin Calcium (Lipitor) 10 MG TABLET 10 MG PO DAILY CHOLESTEROL ( Reported) Calcium Carbonate/Vitamin D3 (Os-You 500+D3 Caplet) 500 MG-200 TABLET 600 MG PO DAILY AC BONE HEALTH (Reported) Cholecalciferol (Vitamin D3) (Vitamin D) 400 UNIT TABLET 1 TAB PO DAILY VITAMIN SUPPORT (Reported) Clonazepam 0.5 MG TABLET 1 TAB PO DAILY ANXIETY (Reported) Cyproheptadine HCl 4 MG TABLET 4 MG PO DAILY U (Reported) Divalproex Sodium 250 MG TABLET.DR 1 TAB PO AT BEDTIME NEURO (Reported) Divalproex Sodium (Depakote ER) 500 MG TAB.ER.24H 1 TAB PO DAILY NEURO ( Reported) Donepezil HCl (Aricept) 5 MG TABLET 10 MG PO DAILY DEMENTIA (Reported) Levothyroxine Sodium 75 MCG TABLET 1 TAB PO DAILY AC THYROID (Reported) Multivitamin (Daily Multiple Vitamin) 1 EACH TABLET 1 TAB PO DAILY VITAMIN SUPPORT (Reported) Trazodone HCl 100 MG TABLET 1 TAB PO QPM DEPRESSION (Reported) Review of Systems Review of Systems Constitutional: Reports: see HPI. Past History Travel History Traveled to [place] past 21 day No Medical History Neurological: Alzheimer's disease, dementia EENT: EYES SURGERY FOR GRAVES Cardiovascular: aortic stenosis, hypertension Respiratory: NONE Gastrointestinal: NONE Hepatic: NONE Renal: NONE Musculoskeletal: NONE Psychiatric: bipolar disease, depression Endocrine: Grave's disease, hypothyroidism Blood Disorders: NONE Cancer(s): breast cancer POISER/Reproductive: HYSTERECTOMY Surgical History Surgical History: non-contributory Family History Relations & Conditions If Any: Relation not specified for: *No pertinent family history Psychosocial History Where Do You Live? Home Services at Home: None Smoking Status: Unknown If Ever Smoked Functional Ability ADLs Needs Assist: dressing, eating, toileting, bathing. Ambulation: walker IADLs Needs Assist: shopping, housework, finances, food prep, telephone, transportation, medication admin. Exam & Diagnostic Data Last 24 Hrs of Vital Signs/I&O Vital Signs Date Time Temp Pulse Resp B/P B/P Pulse O2 O2 Flow FiO2 Mean Ox Delivery Rate 12/18 1058 93 Nasal 4.0L Cannula 12/18 0800 98 Nasal 4.0L Cannula 12/18 0800 97.0 70 18 130/00 98 Nasal 4.0L Cannula 12/18 0438 74 21 96/42 12/18 0400 94 Nasal 4.0L Cannula 12/18 0000 95 Nasal 4.0L Cannula 12/18 0000 96.8 116 27 96/00 95 Nasal 4.0L Cannula 12/17 2310 96.7 12/17 2259 120 95 90/57 12/17 2247 135 82/00 12/17 2134 Nasal 4.0L Cannula 12/17 2134 91 Nasal 4.0L Cannula 12/177 99.9 12/17 2022 98.9 93 30 118/80 91 12/17 1853 99.9 101 24 108/70 94 Nasal Cannula 12/17 1630 92 Nasal 4.0L Cannula 12/17 1533 98.8 92 20 131/98 92 Nasal 2.0L Cannula 12/17 1352 99.0 84 26 130/60 94 Room Air Intake & Output 12/18 1600 12/18 0800 12/18 0000 Intake Total 936.1 722.1 Output Total 450 50 Balance 486.1 672.1 Intake, IV 936.1 622.1 Intake, Oral 0 100 Number 0 0 Bowel Movements Output, Urine 450 50 Patient 133 lb Weight Weight Bed scale Measurement Method Physical Exam General Appearance: alert, awake Respiratory: decreased breath sounds more on R than left. systolic murmur, mild L sided wheezing Cardiovascular: RRR with systolic murmur Gastrointestinal: decreased breath sounds Extremities: cold RLE. unable to palpate R pedal pulse., 1+ LLE swelling Other Physical Findings: Temperature 97.1 Heart rate [id number] afib, now 70-80s NSR Blood pressure 66/doppler now improved to 90-100/50s 92-96% oxygen saturation on 4 L Respiratory rate 8 In 1936 Out 500 Last 48 Hrs of Labs/Nicolás: Laboratory Tests 12/18/17 0938: APTT 66 H 12/18/17 0524: Anion Gap 15, Estimated GFR 47 L, BUN/Creatinine Ratio 23.6, Magnesium 2.0, Troponin I 5.29 *H, CBC w Diff NO MAN DIFF REQ, RBC 4.74, MCV 89, MCH 29.3, MCHC 32.9 L, RDW 15.5 H, MPV 9.5, Gran % 77.5 H, Lymphocytes % 7.9 L, Monocytes % 14.6 H, Eosinophils % 0, Basophils % 0, Absolute Granulocytes 7.3 H, Absolute Lymphocytes 0.7 L, Absolute Monocytes 1.4 H, Absolute Eosinophils 0, Absolute Basophils 0 12/18/17 0251: APTT 56 H 12/18/17 0015: Troponin I 2.38 *H 12/18/17 0015: Lactic Acid 1.3 12/17/17 2355: Lactic Acid Cancelled 12/17/17 2120: Lactic Acid 1.9 12/17/17 1800: Troponin I 4.50 *H 12/17/17 1530: Urinalysis LIGHT H, Urine Color YEL, Urine Clarity HAZY H, Urine pH 6.5, Ur Specific [place] 1.010, Urine Protein NEG, Urine Ketones NEG, Urine Nitrite NEG, Urine Bilirubin NEG, Urine Urobilinogen 0.2, Ur Leukocyte Esterase SMALL H, Ur Microscopic SEDIMENT EXAMINED, Urine RBC RARE, Urine WBC RARE, Ur Epithelial Cells FEW, Urine Bacteria RARE H, Urine Hemoglobin TRACE-INTACT, Urine Glucose NEG 12/17/17 1054: Anion Gap 9, Estimated GFR 60, BUN/Creatinine Ratio 24.4, Glucose 99, Calcium 8.5, Total Bilirubin 0.5, AST 35, ALT 15, Alkaline Phosphatase 56, Pro-B- Natriuretic Pept 9520 H, Total Protein 6.1 L, Albumin 3.3 L, Globulin 2.8, Albumin/Globulin Ratio 1.2, TSH 4.650 H, Thyroxine (T4) 7.7 12/17/17 1016: CBC w Diff NO MAN DIFF REQ, RBC 5.34, MCV 88.7, MCH 28.8, MCHC 32.4 L, RDW 15.5 H, MPV 9.3, Gran % 82.1 H, Lymphocytes % 6.2 L, Monocytes % 11.5 H, Eosinophils % 0, Basophils % 0.2, Absolute Granulocytes 5.2, Absolute Lymphocytes 0.4 L, Absolute Monocytes 0.7 H, Absolute Eosinophils 0, Absolute Basophils 0 Assessment/Plan CRCU Impression/Plan: 87 year old female with past medical history significant for severe , HLD, bipolar, Graves' disease, Alzheimer dementia, depression, history of breast cancer, hypertension, severe aortic stenosis and recently admitted with altered mental status, hypothyroidism, and right lower extremity cellulitis treated with a course of antibiotics presenting for CHF and found to have hypotension, elevated troponins, and now was resolved new onset atrial fibrillation. #CHF Last echo July 2017 revealed LVEF >65% with severe Aortic stenosis. Initial CXR revaeled: Hilar vascular engorgement, early interstitial edema, and trace effusions. Probnp 9520 -cont lasix but be careful as patient has severe . held lasix today -f/u repeat echo #Hypotension most likely due to overdiuresis vs new onset afib Upon admission to the telemetry floor the patient was found to have hypoxia despite 4 L of oxygen. The patient received an extra dose of Lasix. She then became hypotensive 70s/doppler and was given NS bolus 250ml x1. She was also found to be tachycardic. EKG then revealed afib with V3-[address]- depression. Right side precordial EKG done, no ST-segment mirror image but 1-1.[address] elevation on V4-6. Cardiology wrecommended moving the patient to the ICU for amiodarone drip and an extra dose of 250ml NS bolus. Tylenol was given x1 for mild fever. Blood cx x2 were drawn and lactic acid was draw. The patient returned to [facility] around 1:30AM. Current BP has improved and is now stable -cont amiodarone drip -cont heparin drip -cont monitoring vitals #Elevated troponins She was then also found to have elevated troponin of 4.5. She was asymptomatic. She received full dose asaparin once and started on IV heparin drip. A statin was also started and beta wesley was held due to her CHF. Troponins trended to 2.38 then back up to 6.19 -f/u trops ekg until peak -Continue to have discussions with family regarding possible cath + TAVR. At this time they would like conservative management. -cont atorvastatin -cont aspirin #Severe Last echo 2017 revealed severe 1.1cm2 -Continue to have discussion with family regarding possible cath + TAVR #PVD or RLE? Doplper pulses of b/l feet. Cold RLE -cont to monitor #mild MARIO Cr baseline .7-.9 Current 1.1 -cont to monitor #chronic medical problems: osteopenia, bipolar, Graves' disease, Alzheimer dementia, depression, history of breast cancer, hypertension -cont alendronate, vitamind d, donepezil, depakote, cyproheptadine, clonazepam, levothyroxine, aripprazole, trazodone, #HOUSE KEEPING Chopped mechanical and thin liquid diet Hsieh FULL CODE Amiodarone drip Heparin drip Family is ok for central line for pressors if needed Contact Tori (daughter) [phone] Problem List: 1. Aortic stenosis 2. CHF (congestive heart failure) 3. Elevated troponin Consult Acknowledgment - Thank you for your consult request. Francisco Mcgregor MD 12/18/17 1428: Assessment/Plan CRCU Other Findings/Comments: Francisco Tellez M.D. have examined this patient, reviewed available EMR data, personally reviewed images, discussed with resident/PA/METER ATTENDANT, discussed management plan with housestaff and nursing staff, discussed managment plan all of healthcare providers, discussed management plan with patient and/or family, agreed with resident/PA/METER ATTENDANT. The past history and parts of the chart have been autopopulated. Impression 87 year old woman * acute chf likely secondary to severe aortic stenosis with pulmonary edema and acute hypoxemic respiratory failure * new onset a.fib now in sinus rhythm * episode of hypotension, resolved * troponinemia Plan -f/u cardiology -f/u ECHO -DNR/DNI, goals of care being addressed -continue amiodarone and heparin gtt -improved respiratory status likely secondary to edema -reduce fio2 to a goal of spo2 >92% DVT prophylaxis at all times TTS 40 min D/w housestaff, nursing staff, family Consult Acknowledgment - Thank you for your consult request.
[2017-12-18 10:32] LABS: PTT 66 SEC (25-37)
--- NOTE | 2017-12-18 12:40 | PN- Cardiology ---
Subjective Subjective: After the issues of earlier today, the patient is now sitting comfortably in bed. She denies any significant symptoms. Her respiratory status is stable. Her blood pressure is stable at 120/72. Her rhythm at the moment is sinus rhythm with atrial ectopy and a heart rate of about 80. Objective Vital Signs and I&Os Vital Signs Date Time Temp Pulse Resp B/P B/P Pulse O2 O2 Flow FiO2 Mean Ox Delivery Rate 12/18 1058 93 Nasal 4.0L Cannula 12/18 0800 98 Nasal 4.0L Cannula 12/18 0800 97.0 70 18 130/00 98 Nasal 4.0L Cannula 12/18 0438 74 21 96/42 12/18 0400 94 Nasal 4.0L Cannula 12/18 0000 95 Nasal 4.0L Cannula 12/18 0000 96.8 116 27 96/00 95 Nasal 4.0L Cannula 12/17 2310 96.7 12/17 2259 120 95 90/57 12/17 2247 135 82/00 12/17 2134 Nasal 4.0L Cannula 12/17 2134 91 Nasal 4.0L Cannula 12/17 2127 99.9 12/17 2022 98.9 93 30 118/80 91 12/17 1853 99.9 101 24 108/70 94 Nasal Cannula 12/17 1630 92 Nasal 4.0L Cannula 12/17 1533 98.8 92 20 131/98 92 Nasal 2.0L Cannula 12/17 1352 99.0 84 26 130/60 94 Room Air Intake & Output 12/18 1600 12/18 0800 / 0000 12/17 1600 12/17 0800 12/17 0000 Intake Total 936.1 722.1 Output Total 450 50 100 Balance 486.1 672.1 -100 Intake, IV 936.1 622.1 Intake, Oral 0 100 Number 0 0 Bowel Movements Output, Urine 450 50 100 Patient 133 lb 140 lb Weight Weight Bed scale Estimated Measurement Method Physical Exam: General Appearance: well developed/nourished, alert, awake, oriented Head: normal HEENT: Normal Neck: supple, JVP normal, carotid upstrokes normal bilaterally, no masses or thyromegaly; bilateral bruit Respiratory: chest non-tender, scattered bilateral rhonchi Cardiovascular: regular rate/rhythm, normal S1, S2, 2/6 systolic ejection murmur Abdomen: normal bowel sounds, soft, non-tender Extremities: normal inspection, no edema Vascular: Pulses are 2+ and equal bilaterally Neurologic: Grossly normal/nonfocal Current Medications: Current Medications Sig/Cordell Start time Last Medication Dose Route Stop Time Status Admin Acetaminophen 1,000 MG ONCE ONE 12/17 2129 DC 12/17 N/A 1 UNIT IV 12/17 2144 2127 Albuterol Sulfate 3 ML Q4P PRN 12/17 1930 AC 12/17 INH 1921 Alendronate Sodium 70 MG Larose@0700 12/20 0700 AC PO Amiodarone HCl/ 360 MG Q12H 12/17 2240 AC 12/18 Dextrose IV 0438 N/A 1 UNIT Amiodarone HCl/ 150 MG ONCE ONE 12/17 223 DC 12/17 Dextrose IV 12/17 N/A 1 UNIT Aripiprazole 5 MG DAILY AC 12/18 0700 AC PO Aspirin 81 MG DAILY 12/18 0900 AC PO Aspirin 300 MG ONCE ONE 12/17 2100 DC 12/17 WA 12/17 210 2110 Aspirin 325 MG ONCE ONE 12/17 2030 DC PO 12/17 2031 Atorvastatin Calcium 10 MG 1700 12/18 1700 CAN PO Atorvastatin Calcium 80 MG 1700 12/18 1700 AC PO Calcium/Vitamin D 1 TAB DAILY 12/18 0900 AC PO Cholecalciferol 400 IU DAILY 12/18 0900 AC PO Clonazepam 0.5 MG DAILY 12/18 0900 AC PO 12/25 0859 Cyproheptadine HCl 4 MG DAILY 12/18 0900 AC PO Divalproex Sodium 500 MG DAILY 12/18 0900 AC PO Divalproex Sodium 250 MG AT BEDTIME 12/17 2100 AC PO Donepezil HCl 10 MG DAILY 12/18 0900 AC PO Enoxaparin Sodium 40 MG DAILY 12/18 0900 CAN SC Furosemide 40 MG DAILY 12/18 0900 AC IV Furosemide 40 MG ONCE ONE 12/17 1930 DC 12/17 IV 12/17 [id number] Furosemide 0 .STK-MED ONE 12/17 1303 DC IV Furosemide 40 MG ONCE ONE 12/17 1245 DC 12/17 IV 12/17 1246 1308 Heparin Sodium 5,000 UNIT .STK-MED ONE 12/18 0326 DC (Porcine) IV 12/18 0327 Heparin Sodium 1,830 UNIT ONCE ONE 12/18 0321 DC 12/18 (Porcine) IV 12/18 032 0332 Heparin Sodium 25,000 UNIT Q24H 12/17 2044 AC 12/17 (Porcine) IV 2110 Sodium Chloride 500 ML Levothyroxine Sodium 0.075 MG DAILY AC 12/18 0700 AC PO Multivitamins 1 TAB DAILY 12/18 0900 AC Therapeutic PO Sodium Chloride 250 ML BOLUS ONE 12/17 2230 DC 12/17 IV 12/17 2328 223 Sodium Chloride 250 ML BOLUS ONE 12/17 2114 DC 12/17 IV 12/17 221 212 Trazodone HCl 100 MG QPM 12/17 2100 AC PO Results Last 48 Hrs of Labs/Mics: Laboratory Tests 12/18/17 0938: APTT 66 H 12/18/17 0524: Anion Gap 15, Estimated GFR 47 L, BUN/Creatinine Ratio 23.6, Magnesium 2.0, Troponin I 5.29 *H, CBC w Diff NO MAN DIFF REQ, RBC 4.74, MCV 89, MCH 29.3, MCHC 32.9 L, RDW 15.5 H, MPV 9.5, Gran % 77.5 H, Lymphocytes % 7.9 L, Monocytes % 14.6 H, Eosinophils % 0, Basophils % 0, Absolute Granulocytes 7.3 H, Absolute Lymphocytes 0.7 L, Absolute Monocytes 1.4 H, Absolute Eosinophils 0, Absolute Basophils 0 12/18/17 0251: APTT 56 H 12/18/17 0015: Troponin I 2.38 *H 12/18/17 0015: Lactic Acid 1.3 12/17/17 2355: Lactic Acid Cancelled 12/17/17 2120: Lactic Acid 1.9 12/17/17 1800: Troponin I 4.50 *H 12/17/17 1530: Urinalysis LIGHT H, Urine Color YEL, Urine Clarity HAZY H, Urine pH 6.5, Ur Specific [place] 1.010, Urine Protein NEG, Urine Ketones NEG, Urine Nitrite NEG, Urine Bilirubin NEG, Urine Urobilinogen 0.2, Ur Leukocyte Esterase SMALL H, Ur Microscopic SEDIMENT EXAMINED, Urine RBC RARE, Urine WBC RARE, Ur Epithelial Cells FEW, Urine Bacteria RARE H, Urine Hemoglobin TRACE-INTACT, Urine Glucose NEG 12/17/17 1054: Anion Gap 9, Estimated GFR 60, BUN/Creatinine Ratio 24.4, Glucose 99, Calcium 8.5, Total Bilirubin 0.5, AST 35, ALT 15, Alkaline Phosphatase 56, Pro-B- Natriuretic Pept 9520 H, Total Protein 6.1 L, Albumin 3.3 L, Globulin 2.8, Albumin/Globulin Ratio 1.2, TSH 4.650 H, Thyroxine (T4) 7.7 12/17/17 1016: CBC w Diff NO MAN DIFF REQ, RBC 5.34, MCV 88.7, MCH 28.8, MCHC 32.4 L, RDW 15.5 H, MPV 9.3, Gran % 82.1 H, Lymphocytes % 6.2 L, Monocytes % 11.5 H, Eosinophils % 0, Basophils % 0.2, Absolute Granulocytes 5.2, Absolute Lymphocytes 0.4 L, Absolute Monocytes 0.7 H, Absolute Eosinophils 0, Absolute Basophils 0 Assessment/Plan Assessment/Plan Assessment: 1. Worsening shortness of breath with evidence of acute on chronic HFpEF 2. Moderate to severe aortic stenosis 3. Hypertension 4. Paroxysmal atrial fibrillation 5. Elevated proBNP 6. Elevated troponin Recommendations: -At the moment, the patient is hemodynamically stable and feeling somewhat better. -Continue to trend troponin until decreasing -Echocardiogram pending -Avoid overdiuresis -Continue amiodarone for now -Further discussions about level of care, possible interventions, etc. pending. Continue telemetry? Yes
[2017-12-18 16:00] VITALS: BP 120/74
[2017-12-18 22:10] LABS: PTT 53 SEC (25-37)
[2017-12-19] VITALS: BP 81/43
--- NOTE | 2017-12-19 00:10 | Event Note ---
Event Note Event Note: Patient converted back to A.fib, her heart rate 125-140 beat/min and blood pressure dropped to 80's systolic with doppler. Spoke with Dr. Rawls who recommend to order a bolus of 150mg amiodarone, and 500ml bolus of NS. Patient BP was stable when she was SR, dropped when she converted to A.fib.
[2017-12-19 05:33] LABS: ABSOLUTE BASOPHIL COUNT 0 /CUMM (0.0-0.2); ABSOLUTE EOSINOPHIL COUNT 0 /CUMM (0.0-0.7); ABSOLUTE GRANULOCYTE CT 5.1 /CUMM (1.4-6.5); ABSOLUTE LYMPH COUNT 0.5 /CUMM (1.2-3.4); ABSOLUTE MONOCYTE COUNT 0.7 /CUMM (0.10-0.60); BASOPHIL % 0 % (0.0-2.0); EOSINOPHIL % 0.2 % (0-5); GRANULOCYTE % 81.2 % (42.2-75.2); HEMATOCRIT 38.4 % (37-47); MEAN CORPUSCULAR HGB 29.3 PG (27.0-31.0); MEAN CORPUSCULAR VOLUME 88.8 FL (81.0-99.0); MEAN PLATELET VOLUME 9.8 FL (7.4-10.4); PLATELET COUNT 130 /CUMM (130-400); RBC DISTRIBUTION WIDTH 15.8 % (11.5-14.5); RED BLOOD CELL CT 4.32 /CUMM (4.20-5.40); WHITE BLOOD CELL COUNT 6.3 /CUMM (4.8-10.8)
[2017-12-19 05:36] LABS: PTT 91 SEC (25-37)
[2017-12-19 08:00] VITALS: BP 104/70
--- NOTE | 2017-12-19 10:06 | PN- Resident CRCU ---
Petey CHRISTINE,[facility] 12/19/17 1006: Subjective HPI/CRCU Issues: Patient went back to afib last night with hypotesion around 12 am. 500ml NS bolus and 1 extra dose of amioadorne was given. She converted back to sinus at 2am. Troponins peaked at 6.14 and downtrended to 4.02 She appears more lethargic today per family. 24 Hour Events: MAXIMUM TEMPERATURE 99.8 Heart rate 01940 with SR and PAC Respiratory rate 1624 [place] [address]/4390 9598% oxygen sat on 4 L Objective Vital Signs & I&O Last 8 Hrs of Vitals and I&O: Laboratory Tests 12/19/17 0500: Anion Gap 10, Estimated GFR 60, Glucose 108 H, Calcium 7.6 L, Phosphorus 2.6, Magnesium 2.0, Total Bilirubin 0.3, AST 41 H, ALT 23, Albumin 2.7 L, APTT 91 H, CBC w Diff NO MAN DIFF REQ, RBC 4.32, MCV 88.8, MCH 29.3, MCHC 33.0, RDW 15.8 H, MPV 9.8, Gran % 81.2 H, Lymphocytes % 8.3 L, Monocytes % 10.3 H, Eosinophils % 0.2, Basophils % 0, Absolute Granulocytes 5.1, Absolute Lymphocytes 0.5 L, Absolute Monocytes 0.7 H, Absolute Eosinophils 0, Absolute Basophils 0 12/18/177: APTT 53 H 12/18/17 1815: Troponin I 4.02 *H 12/18/17 1324: Troponin I 6.14 *H Vital Signs Date Time Temp Pulse Resp B/P B/P Pulse O2 O2 Flow FiO2 Mean Ox Delivery Rate 12/19 0400 98 Nasal 4.0L Cannula 12/19 0346 99.5 90 24 91/41 12/19 0025 99.5 130 28 81/43 12/19 0000 Nasal 4.0L Cannula 12/19 0000 99.5 130 28 81/43 95 Nasal 4.0L Cannula 12/18 2200 Nasal 4.0L Cannula 12/18 1658 77 97/49 12/18 1600 98 Nasal 4.0L Cannula 12/18 1600 97.8 80 20 120/74 98 Nasal 4.0L Cannula Intake & Output 12/19 1600 12/19 0800 12/19 0000 Intake Total 824 1380 Output Total 175 815 Balance 649 565 Intake, IV 824 100 Intake, Oral 1280 Number 1 Bowel Movements Output, Urine 175 815 Patient 136 lb 136 lb Weight Intake & Output 12/19 1600 Intake Total Output Total Balance Patient 136 lb Weight Exam General Appearance: lethargic. less responsive than yesterday. Ears, Nose, Throat: left conjunctivitius with honey colored crust Respiratory: decreased breath sounds Cardiovascular: NSR with systolic murmur Gastrointestinal: decreased bowel sounds Extremities: trace LE edema Current Medications: Current Medications Sig/Cordell Start time Last Medication Dose Route Stop Time Status Admin Albuterol Sulfate 3 ML Q4P PRN 12/17 1930 AC 12/17 INH 1921 Alendronate Sodium 70 MG Larose@0700 12/20 0700 AC PO Amiodarone HCl/ 150 MG ONCE ONE 12/19 0015 DC 12/19 Dextrose IV 12/19 0024 0025 N/A 1 UNIT Amiodarone HCl/ 360 MG Q12H 12/17 2240 AC 12/19 Dextrose IV 0346 N/A 1 UNIT Aripiprazole 5 MG DAILY AC 12/18 0700 AC 12/19 PO 0903 Aspirin 81 MG DAILY 12/18 0900 AC 12/19 PO 0903 Atorvastatin Calcium 80 MG 1700 12/18 1700 AC 12/18 PO 1654 Calcium/Vitamin D 1 TAB DAILY 12/18 0900 AC 12/19 PO 0903 Cholecalciferol 400 IU DAILY 12/18 0900 AC 12/19 PO 0903 Clonazepam 0.5 MG DAILY 12/18 0900 AC 12/19 PO 12/25 0859 0911 Cyproheptadine HCl 4 MG DAILY 12/18 0900 AC 12/19 PO 0904 Divalproex Sodium 500 MG DAILY 12/18 0900 AC 12/19 PO 0903 Divalproex Sodium 250 MG AT BEDTIME 12/17 2100 AC 12/18 PO 2049 Donepezil HCl 10 MG DAILY 12/18 0900 AC 12/19 PO 0903 Erythromycin 1 LILLIAM 4 TIMES/DAY 12/19 1300 AC OPH Furosemide 40 MG DAILY 12/18 0900 AC IV Heparin Sodium 5,000 UNIT .STK-MED ONE 12/18 2321 DC (Porcine) IV 12/18 2322 Heparin Sodium 1,800 UNIT ONCE ONE 12/18 2300 DC 12/18 (Porcine) IV 12/18 2301 2315 Heparin Sodium 25,000 UNIT Q24H 12/17 2045 AC 12/19 (Porcine) IV 0350 Sodium Chloride 500 ML Levothyroxine Sodium 0.075 MG DAILY AC 12/18 0700 AC 12/19 PO 09 Metoprolol Tartrate 5 MG ONCE ONE 12/18 2345 CAN IV 12/18 2346 Multivitamins 1 TAB DAILY 12/18 0900 AC 12/19 Therapeutic PO 09 Potassium Chloride 40 MEQ ONCE ONE 12/18 1300 DC 12/18 PO 12/18 1301 1304 Sodium Chloride 500 ML BOLUS ONE 12/19 0015 DC 12/19 IV 12/19 0114 0025 Trazodone HCl 100 MG QPM 12/17 2100 AC 12/18 PO 2048 Impression/Plan Impression/Problem List Impression: A: 87 year old female with past medical history significant for severe , HLD, bipolar, Graves' disease, Alzheimer dementia, depression, history of breast cancer, hypertension, severe aortic stenosis and recently admitted with altered mental status, hypothyroidism, and right lower extremity cellulitis treated with a course of antibiotics presenting for CHF and found to have hypotension, elevated troponins, and now was resolved new onset atrial fibrillation. P: #CHF in the setting of severe Last echo July 2017 revealed LVEF >65% with severe Aortic stenosis. Initial CXR revaeled: Hilar vascular engorgement, early interstitial edema, and trace effusions. Probnp 9520 Echo: EF >55% with severe Repeat CXR: 1. Progression of pulmonary edema. 2. New left basilar consolidation vs atelectasis -HOLD LASIX TODAY -cont lasix per cardiology daily recs but be careful as patient has severe . hold as needed. -Continue to have discussion with family regarding possible cath + TAVR #Hypotension most likely due to overdiuresis vs new onset afib Upon admission to the telemetry floor the patient was found to have hypoxia despite 4 L of oxygen. The patient received an extra dose of Lasix. She then became hypotensive 70s/doppler and was given NS bolus 250ml x1. She was also found to be tachycardic. EKG then revealed afib with V3-[address]- depression. Right side precordial EKG done, no ST-segment mirror image but 1-1.[address] elevation on V4-6. Cardiology wrecommended moving the patient to the ICU for amiodarone drip and an extra dose of 250ml NS bolus. Tylenol was given x1 for mild fever. Blood cx x2 were drawn and lactic acid was draw. The patient returned to NSR around 1:30AM during admission day. She returned to afib 11:50pm on 12/18. 500ml NS bolus and 1 extra dose of amioadorne was given. She converted back to sinus at 2am. -cont amiodarone drip -cont heparin drip -cont monitoring vitals #Elevated troponins She was then also found to have elevated troponin of 4.5. She was asymptomatic. She received full dose asaparin once and started on IV heparin drip. A statin was also started and beta wesley was held due to her CHF. Troponins trended to 2.38 then peaked to 6.19 -Continue to have discussions with family regarding possible cath + TAVR. At this time they would like conservative management. -cont atorvastatin -cont aspirin #Lethargy/AMS possibly due to new onset of L conjunctivitis Patient found to be more lethargic than normal. Also found to have L conjunctivitis. CT head no acute intracranial territorial infarction or hemorrhage. Moderate diffuse parenchymal volume loss and mild chronic white matter microangiopathy. Severe chronic frontoethmoid sinus disease. -cont erythromycin and monitor #PVD or RLE? Doplper pulses of b/l feet. Cold RLE -cont to monitor #chronic medical problems: osteopenia, bipolar, Graves' disease, Alzheimer dementia, depression, history of breast cancer, hypertension -cont alendronate, vitamind d, donepezil, depakote, cyproheptadine, clonazepam, levothyroxine, aripprazole, trazodone, #HOUSE KEEPING Chopped mechanical and thin liquid diet Hsieh DNR/DNI Amiodarone drip Heparin drip Family is ok for central line for pressors if needed Contact Tori (daughter) [phone] Problem List: 1. CHF (congestive heart failure) 2. Afib 3. Elevated troponin 4. Aortic stenosis 5. Lethargy Pain Ratin Tomorrow's Labs & Rationales: icu cbc Plan DVT/Prophylaxis: heparin drFrancisco Gomez MD 12/19/17 1007: Attending MD Review Statement Attending Sign Off Attending Cosign Statement: I have: examined this patient, reviewed avalbl EMR data, personally reviewd images, discussd w/resident/PA/FACTORY MACHINE COMPUTER OPERATOR, discussed mgmt plan w/nicolasa, discussed mgmt plan w/CM, discussed mgmt plan w/pt, agreed w/resident/PA/FACTORY MACHINE COMPUTER OPERATOR, amended to note. Other Findings: I, Francisco Mcgregor M.D. have examined this patient, reviewed available EMR data, personally reviewed images, discussed with resident/PA/FACTORY MACHINE COMPUTER OPERATOR, discussed management plan with housestaff and nursing staff, discussed managment plan all of healthcare providers, discussed management plan with patient and/or family, agreed with resident/PA/FACTORY MACHINE COMPUTER OPERATOR. The past history and parts of the chart have been autopopulated. Impression 87 year old woman * acute chf likely secondary to severe aortic stenosis with pulmonary edema and acute hypoxemic respiratory failure * new onset a.fib now in sinus rhythm * episode of hypotension, resolved * troponinemia Plan -f/u cardiology, continue to discuss treatment plan of conservative medical management vs consideration for catheterization -DNR/DNI, goals of care being addressed -continue amiodarone and heparin gtt -improved respiratory status likely secondary to edema -reduce fio2 to a goal of spo2 >92% -check CXR today to ensure congestion improved DVT prophylaxis at all times TTS 35 min D/w housestaff, nursing staff, family
--- NOTE | 2017-12-19 11:04 | ECHOCARDIOGRAM REPORT ---
REJI CALDERON Age: 87 : 1930 Gender: F Exam Date: 12/18/2017 19:08 Exam Location: [facility] Ht (in): 62 Wt (lb): 140 BSA: 1.68 BP: 96 / 42 Ordering Physician: Beto Porras MD Referring Physician: Beto Porras MD Technologist: Christopher Haji RAJEEV Room Number: 112 Indications: SHORTNESS OF BREATH Rhythm: Sinus Technical Quality: Technically difficult study FINDINGS Left Ventricle Normal size left ventricle. Moderate concentric left ventricular hypertrophy. Normal left ventricular ejection fraction visually estimated at >55%. No obvious regional wall motion abnormalities. Right Ventricle Normal right ventricular size and function. Right Atrium Normal right atrial size. Left Atrium Normal left atrial size. Mitral Valve Moderate mitral annular calcification. Mild mitral regurgitation. Mitral valve thickened. Trace mitral regurgitation. Aortic Valve Diffuse thickening of the aortic valve cusps with reduced excursion. Aortic stenosis, severe by valve area with gradient in the moderate range. No aortic regurgitation. Tricuspid Valve Tricuspid valve not well visualized, grossly normal. Trace tricuspid regurgitation. No evidence of pulmonary hypertension. Pulmonic Valve Mild pulmonic regurgitation. Pericardium No pericardial effusion. Great Vessels Normal size aortic root. CONCLUSIONS Normal size left ventricle. Moderate concentric left ventricular hypertrophy. Normal left ventricular ejection fraction visually estimated at > 55%. Mild mitral regurgitation. Diffuse thickening of the aortic valve cusps with reduced excursion. Aortic stenosis, severe by valve area with gradient in the moderate range. Trace tricuspid regurgitation. Manolo Rawls M.D. (Electronically Signed) Final Date: 19 Dec 2017 11:03 MEASUREMENTS (Male / Female) Normal Values 2D ECHO LV Diastolic Diameter PLAX 3.9 cm 4.2 - 5.9 / 3.9 - 5.3 cm LV Systolic Diameter PLAX 2.3 cm 2.1 - 4.0 cm LV Fractional Shortening PLAX 41.0 % 25 - 46 % LV Ejection Fraction 2D Teich 72.5 % IVS Diastolic Thickness 1.7 cm LVPW Diastolic Thickness 1.7 cm LV Relative Wall Thickness 0.9 RV Internal Dim ED PLAX 2.1 cm 1.9 - 3.8 cm LVOT Diameter 2.1 cm Aortic Root Diameter 3.7 cm LA Systolic Diameter LX 3.9 cm 3.0 - 4.0 / 2.7 - 3.8 cm LA Volume 72.0 cm 18 - 58 / 22 - 52 cm Ascending Aorta Diameter 2.8 cm DOPPLER AV Peak Velocity 359.0 cm/s AV Peak Gradient 51.6 mmHg AV Mean Velocity 295.0 cm/s AV Mean Gradient 37.0 mmHg AV Velocity Time Integral 79.1 cm LVOT Peak Velocity 79.4 cm/s LVOT Peak Gradient 2.5 mmHg LVOT Mean Velocity 57.9 cm/s LVOT Mean Gradient 2.0 mmHg LVOT Velocity Time Integral 15.8 cm LVOT Stroke Volume 54.7 cm AV Area Cont Eq vti 0.7 cm AV Area Cont Eq pk 0.8 cm MV Peak Velocity 145.0 cm/s MV Peak Gradient 8.4 mmHg MV Mean Velocity 88.6 cm/s MV Mean Gradient 4.0 mmHg Mitral E Point Velocity 84.1 cm/s Mitral A Point Velocity 94.2 cm/s Mitral E to A Ratio 0.9 MV PHT Velocity 151.0 cm/s MV Deceleration [place] 633.0 cm/s MV Pressure Half Time 71.6 ms MV Area PHT 3.1 cm MV Deceleration Time 180.0 ms TV Peak Velocity 244.0 cm/s TV Peak E Velocity 54.8 cm/s TV Peak A Velocity 43.4 cm/s TV E to A Ratio 1.3 Right Atrial Pressure 5.0 mmHg PV Peak Velocity 91.7 cm/s PV Peak Gradient 3.4 mmHg PV Mean Velocity 77.3 cm/s PV Mean Gradient 3.0 mmHg PV Velocity Time Integral 16.8 cm LV E' Lateral Velocity 9.3 cm/s Mitral E to LV E' Lateral Ratio 9.1 LV E' Septal Velocity 5.9 cm/s Mitral E to LV E' Septal Ratio 14.1
--- NOTE | 2017-12-19 11:45 | PN- Cardiology ---
Subjective Subjective: The patient wasThe patient developed atrial fibrillation overnight with rapid ventricular rate and hypotension. She was given a bolus of amiodarone, and converted to sinus rhythm. She is confused this morning and is able to give only limited history. The patient's family is in the room with her. Objective Vital Signs and I&Os Vital Signs Date Time Temp Pulse Resp B/P B/P Pulse O2 O2 Flow FiO2 Mean Ox Delivery Rate 12/19 0400 98 Nasal 4.0L Cannula 12/19 0346 99.5 90 24 91/41 12/19 0025 99.5 130 28 81/43 12/19 0000 Nasal 4.0L Cannula 12/19 0000 99.5 130 28 81/43 95 Nasal 4.0L Cannula 12/18 2200 Nasal 4.0L Cannula 12/18 1658 77 97/49 12/18 1600 98 Nasal 4.0L Cannula 12/18 1600 97.8 80 20 120/74 98 Nasal 4.0L Cannula 12/18 1200 98 Nasal 4.0L Cannula Intake & Output 12/19 1600 12/19 0800 12/19 0000 12/18 1600 12/18 0800 12/18 0000 Intake Total 824 1380 739 936.1 722.1 Output Total 175 815 175 450 50 Balance 649 565 564 486.1 672.1 Intake, IV 824 100 259 936.1 622.1 Intake, Oral 1280 480 0 100 Number 1 0 0 0 Bowel Movements Output, Urine 175 815 175 450 50 Patient 136 lb 136 lb 133 lb Weight Weight Bed scale Measurement Method Physical Exam: General Appearance: well developed/nourished, alert, awake, oriented Head: normal HEENT: Normal Neck: supple, JVP normal, carotid upstrokes normal bilaterally, no masses or thyromegaly; bilateral bruit Respiratory: chest non-tender, scattered bilateral rhonchi Cardiovascular: regular rate/rhythm, normal S1, S2, 2/6 systolic ejection murmur Abdomen: normal bowel sounds, soft, non-tender Extremities: normal inspection, no edema Vascular: Pulses are 2+ and equal bilaterally Neurologic: Grossly normal/nonfocal Current Medications: Current Medications Sig/Cordell Start time Last Medication Dose Route Stop Time Status Admin Albuterol Sulfate 3 ML Q4P PRN 12/17 1929 AC 12/17 INH 192 Alendronate Sodium 70 MG Larose@0700 12/20 0700 AC PO Amiodarone HCl/ 150 MG ONCE ONE 12/19 0015 DC 12/19 Dextrose IV 12/19 0024 0025 N/A 1 UNIT Amiodarone HCl/ 360 MG Q12H 12/17 2240 AC 12/19 Dextrose IV 0346 N/A 1 UNIT Aripiprazole 5 MG DAILY AC 12/18 0700 AC 12/19 PO 0903 Aspirin 81 MG DAILY 12/18 0900 AC 12/19 PO 0903 Atorvastatin Calcium 80 MG 1700 12/18 1700 AC 12/18 PO 1654 Calcium/Vitamin D 1 TAB DAILY 12/18 0900 AC 12/19 PO 0903 Cholecalciferol 400 IU DAILY 12/18 0900 AC 12/19 PO 0903 Clonazepam 0.5 MG DAILY 12/18 0900 AC 12/19 PO 12/25 0859 0911 Cyproheptadine HCl 4 MG DAILY 12/18 0900 AC 12/19 PO 0904 Divalproex Sodium 500 MG DAILY 12/18 0900 AC 12/19 PO 0903 Divalproex Sodium 250 MG AT BEDTIME 12/17 2100 AC 12/18 PO 2049 Donepezil HCl 10 MG DAILY 12/18 0900 AC 12/19 PO 0903 Erythromycin 1 LILLIAM 4 TIMES/DAY 12/19 1300 AC OPH Furosemide 40 MG DAILY 12/18 0900 AC IV Heparin Sodium 5,000 UNIT .STK-MED ONE 12/18 2321 DC (Porcine) IV 12/18 2322 Heparin Sodium 1,800 UNIT ONCE ONE 12/18 2300 DC 12/18 (Porcine) IV 12/18 2301 2315 Heparin Sodium 25,000 UNIT Q24H 12/17 2045 AC 12/19 (Porcine) IV 0350 Sodium Chloride 500 ML Levothyroxine Sodium 0.075 MG DAILY AC 12/18 0700 AC 12/19 PO 0903 Metoprolol Tartrate 5 MG ONCE ONE 12/18 2345 CAN IV 12/18 2346 Multivitamins 1 TAB DAILY 12/18 0900 AC 12/19 Therapeutic PO 0903 Potassium Chloride 40 MEQ ONCE ONE 12/18 1300 DC 12/18 PO 12/18 1301 1304 Sodium Chloride 500 ML BOLUS ONE 12/19 0015 DC 12/19 IV 12/19 0114 0025 Trazodone HCl 100 MG QPM 12/17 2100 AC 12/18 PO 2049 Results Last 48 Hrs of Labs/Mics: Laboratory Tests 12/19/17 0500: Anion Gap 10, Estimated GFR 60, Glucose 108 H, Calcium 7.6 L, Phosphorus 2.6, Magnesium 2.0, Total Bilirubin 0.3, AST 41 H, ALT 23, Albumin 2.7 L, APTT 91 H, CBC w Diff NO MAN DIFF REQ, RBC 4.32, MCV 88.8, MCH 29.3, MCHC 33.0, RDW 15.8 H, MPV 9.8, Gran % 81.2 H, Lymphocytes % 8.3 L, Monocytes % 10.3 H, Eosinophils % 0.2, Basophils % 0, Absolute Granulocytes 5.1, Absolute Lymphocytes 0.5 L, Absolute Monocytes 0.7 H, Absolute Eosinophils 0, Absolute Basophils 0 12/18/17 2127: APTT 53 H 12/18/17 1815: Troponin I 4.02 *H 12/18/17 1324: Troponin I 6.14 *H 12/18/17 0938: APTT 66 H 12/18/17 0524: Anion Gap 15, Estimated GFR 47 L, BUN/Creatinine Ratio 23.6, Magnesium 2.0, Troponin I 5.29 *H, CBC w Diff NO MAN DIFF REQ, RBC 4.74, MCV 89, MCH 29.3, MCHC 32.9 L, RDW 15.5 H, MPV 9.5, Gran % 77.5 H, Lymphocytes % 7.9 L, Monocytes % 14.6 H, Eosinophils % 0, Basophils % 0, Absolute Granulocytes 7.3 H, Absolute Lymphocytes 0.7 L, Absolute Monocytes 1.4 H, Absolute Eosinophils 0, Absolute Basophils 0 12/18/17 0251: APTT 56 H 12/18/17 0015: Lactic Acid 1.3 12/18/17 0015: Calcium 8.4, Phosphorus 4.6 H, Troponin I 2.38 *H 12/17/17 2355: Lactic Acid Cancelled 12/17/17 2120: Lactic Acid 1.9 12/17/17 1800: Troponin I 4.50 *H 12/17/17 1530: Urinalysis LIGHT H, Urine Color YEL, Urine Clarity HAZY H, Urine pH 6.5, Ur Specific [place] 1.010, Urine Protein NEG, Urine Ketones NEG, Urine Nitrite NEG, Urine Bilirubin NEG, Urine Urobilinogen 0.2, Ur Leukocyte Esterase SMALL H, Ur Microscopic SEDIMENT EXAMINED, Urine RBC RARE, Urine WBC RARE, Ur Epithelial Cells FEW, Urine Bacteria RARE H, Urine Hemoglobin TRACE-INTACT, Urine Glucose NEG Microbiology 12/17 2329 UPPER RESP: Surveillance Culture - COMP 12/17 2329 GI: Surveillance Culture - COMP 12/17 1530 URINE ROUT: Urine Culture - COMP Recent Imaging Studies: Echocardiogram 12/18/17: Normal size left ventricle. Moderate concentric left ventricular hypertrophy. Normal left ventricular ejection fraction visually estimated at > 55%. Mild mitral regurgitation. Diffuse thickening of the aortic valve cusps with reduced excursion. Aortic stenosis, severe by valve area with gradient in the moderate range. Trace tricuspid regurgitation. Assessment/Plan Assessment/Plan Assessment: 1. Aortic stenosis, severe by valve area with gradient in the moderate moderate range 2. Paroxysmal atrial fibrillation 3. Non-ST elevation myocardial infarction 4. Acute diastolic heart failure Plan: * Continue amiodarone drip * Would hold diuretic therapy today given hypotension * Continue IV heparin * Continue Aspirin * Family is considering options for invasive vs. conservative medical management. Critical care time: 40 minutes Continue telemetry? Yes
--- NOTE | 2017-12-19 12:03 | CT SCAN REPORT ---
EXAMINATION: CT HEAD WITHOUT CONTRAST CLINICAL INFORMATION: Patient on heparin drip. Rule out stroke. COMPARISON: Head CT from 07/09/2017. TECHNIQUE: Contiguous axial imaging was performed from the skull base to vertex without intravenous administration of contrast. DLP: 548.24 mGy-cm FINDINGS: There is no evidence of acute intracranial hemorrhage or territorial infarction. No abnormal mass effect or midline shift is seen. Cain to white matter differentiation is well preserved. No extra-axial fluid collections are identified. There is moderate diffuse parenchymal volume loss and mild chronic white matter microangiopathy. The osseous structures and soft tissues are normal. The mastoid air cells are well aerated. There is mucosal opacification of the frontoethmoid sinuses. IMPRESSION: No acute intracranial territorial infarction or hemorrhage. Moderate diffuse parenchymal volume loss and mild chronic white matter microangiopathy. Severe chronic frontoethmoid sinus disease.
[2017-12-19 13:58] LABS: PTT 34 SEC (25-37)
--- NOTE | 2017-12-19 15:57 | RADIOLOGY REPORT ---
EXAMINATION: XR PORTABLE CHEST CLINICAL INFORMATION: Fluid overload. Follow-up. Heart failure. Aortic stenosis. COMPARISON: 12/17/2017 and previous TECHNIQUE: Portable 85 degrees view of the chest was obtained. FINDINGS: Allowing for rotation the cardiomediastinal contours are likely stable. There is obscuration of the left hemidiaphragm. Otherwise, the lungs are clear. There is a trace right pleural effusion, new compared to prior. A small to moderate left pleural effusion is likely present. The interstitial markings are diffusely prominent. Surgical clips redemonstrated in the left axillary region. IMPRESSION: 1. Progression of pulmonary edema. 2. New left basilar consolidation versus atelectasis with associated small to moderate left pleural effusion. 3. New trace right pleural effusion.
[2017-12-19 16:00] VITALS: BP 110/60
[2017-12-19 19:40] VITALS: BP 118/56
[2017-12-19 21:19] LABS: PTT 74 SEC (25-37)
[2017-12-19 23:49] VITALS: BP 119/43
[2017-12-20 04:40] LABS: ABSOLUTE BASOPHIL COUNT 0 /CUMM (0.0-0.2); ABSOLUTE EOSINOPHIL COUNT 0 /CUMM (0.0-0.7); ABSOLUTE GRANULOCYTE CT 4.9 /CUMM (1.4-6.5); ABSOLUTE LYMPH COUNT 0.5 /CUMM (1.2-3.4); ABSOLUTE MONOCYTE COUNT 0.6 /CUMM (0.10-0.60); BASOPHIL % 0.3 % (0.0-2.0); EOSINOPHIL % 0.7 % (0-5); GRANULOCYTE % 79.9 % (42.2-75.2); MEAN CORPUSCULAR HGB 28.9 PG (27.0-31.0); MEAN CORPUSCULAR HGB CONC 32.6 G/DL (33.0-37.0); MEAN CORPUSCULAR VOLUME 88.7 FL (81.0-99.0); MEAN PLATELET VOLUME 9.8 FL (7.4-10.4); PLATELET COUNT 136 /CUMM (130-400); RBC DISTRIBUTION WIDTH 15.6 % (11.5-14.5); RED BLOOD CELL CT 4.29 /CUMM (4.20-5.40); WHITE BLOOD CELL COUNT 6.1 /CUMM (4.8-10.8)
[2017-12-20 08:00] VITALS: BP 116/72
--- NOTE | 2017-12-20 08:34 | PN- Resident CRCU ---
Karrie CHRISTINE,[facility] 12/20/17 0834: Subjective HPI/CRCU Issues: Ms Marlow was seen and examined this morning. She is resting comfortably in bed. She is alert and oriented to place, she denies any issues overnight. States that she was able to get some rest. She is tolerating by mouth intake well and currently has breakfast tray waiting at bedside. Denies any chest pain or chest discomfort. Denies any fever, chills, nausea, vomiting. Family was also at bedside and they were updated on the plan of care currently awaiting pants busheler to come and speak to them. They report lethargy has improved. 24 Hour Events: No Events Reported Objective Vital Signs & I&O Last 8 Hrs of Vitals and I&O: MAXIMUM TEMPERATURE 99.2 Heart rate 74-90. NSR. Respiratory [place] 1628 BP [address]/4192 9598% oxygen sat on 4 L Exam General Appearance: well developed/nourished, no apparent distress, alert, awake Ears, Nose, Throat: normal pharynx, Left eye appears erythematous and some evidence of crusted discharge. Respiratory: normal breath sounds Cardiovascular: regular rate/rhythm Gastrointestinal: normal bowel sounds, soft, non-tender Extremities: normal inspection, normal capillary refill, normal range of motion Cranial Nerves: normal hearing Skin: intact, normal color Current Medications: Current Medications Sig/Cordell Start time Last Medication Dose Route Stop Time Status Admin Albuterol Sulfate 3 ML Q4P PRN 12/17 1930 AC 12/17 INH 1921 Alendronate Sodium 70 MG Larose@0700 12/20 07 AC 12/20 PO 0612 Amiodarone HCl/ 360 MG Q12H 12/17 2240 AC 12/20 Dextrose IV 0251 N/A 1 UNIT Aripiprazole 5 MG DAILY AC 12/18 07 AC 12/20 PO 0611 Aspirin 81 MG DAILY 12/18 09 AC 12/19 PO 0903 Atorvastatin Calcium 80 MG 1700 12/18 1700 AC 12/19 PO 1710 Calcium/Vitamin D 1 TAB DAILY 12/18 09 AC 12/19 PO 0903 Cholecalciferol 400 IU DAILY 12/18 09 AC 12/19 PO 0903 Clonazepam 0.5 MG DAILY 12/18 09 AC 12/19 PO 12/25 0859 0911 Cyproheptadine HCl 4 MG DAILY 12/18 09 AC 12/19 PO 0904 Divalproex Sodium 500 MG DAILY 12/18 09 AC 12/19 PO 09 Divalproex Sodium 250 MG AT BEDTIME 12/17 2100 AC 12/19 PO 210 Donepezil HCl 10 MG DAILY 12/18 09 AC 12/19 PO 0903 Erythromycin 1 LILLIAM 4 TIMES/DAY 12/19 1300 AC 12/19 OPH 2110 Furosemide 20 MG ONCE ONE 12/20 0945 DC IV 12/20 09 Furosemide 40 MG DAILY 12/18 899 DC IV Heparin Sodium 5,000 UNIT .STK-MED ONE 12/19 1456 DC (Porcine) IV 12/19 145 Heparin Sodium 25,000 UNIT Q24H 12/17 2044 AC 12/20 (Porcine) IV 0644 Sodium Chloride 500 ML Levothyroxine Sodium 0.075 MG DAILY AC 12/18 07 AC 12/20 PO 0611 Multivitamins 1 TAB DAILY 12/18 899 AC 12/19 Therapeutic PO 09 Trazodone HCl 100 MG .STK-MED ONE 12/20 2055 DC PO 12/19 2056 Trazodone HCl 100 MG QPM 12/17 2100 AC 12/[address] Scan Findings: SERVICE DATE: 12/19/17- EXAM TYPE: CAT - CT HEAD WO IV CONTRAST EXAMINATION: CT HEAD WITHOUT CONTRAST CLINICAL INFORMATION: Patient on heparin drip. Rule out stroke. COMPARISON: Head CT from 07/09/2017. TECHNIQUE: Contiguous axial imaging was performed from the skull base to vertex without intravenous administration of contrast. DLP: 548.24 mGy-cm FINDINGS: There is no evidence of acute intracranial hemorrhage or territorial infarction. No abnormal mass effect or midline shift is seen. Cain to white matter differentiation is well preserved. No extra-axial fluid collections are identified. There is moderate diffuse parenchymal volume loss and mild chronic white matter microangiopathy. The osseous structures and soft tissues are normal. The mastoid air cells are well aerated. There is mucosal opacification of the frontoethmoid sinuses. IMPRESSION: No acute intracranial territorial infarction or hemorrhage. Moderate diffuse parenchymal volume loss and mild chronic white matter microangiopathy. Severe chronic frontoethmoid sinus disease. DICTATED BY: Koko Delatorre MD Impression/Plan Impression/Problem List Impression: Ms Dumas is an 87 year old female with past medical history significant for severe , HLD, bipolar, Graves' disease, Alzheimer dementia, depression, history of breast cancer, hypertension, severe aortic stenosis and recently admitted with altered mental status, hypothyroidism, and right lower extremity cellulitis treated with a course of antibiotics presenting for CHF and found to have hypotension, elevated troponins, and now was resolved being managed from new onset atrial fibrillation. P: #CHF in the setting of severe Last echo July 2017 revealed LVEF >65% with severe Aortic stenosis. Initial CXR revaeled: Hilar vascular engorgement, early interstitial edema, and trace effusions. Probnp 9520 Echo: EF >55% with severe Repeat CXR: 1. Progression of pulmonary edema. 2. New left basilar consolidation vs atelectasis Lasix today 20 mg IV, will continue 20 IV BID. -Conservative management for now. -If BP remains stable overnight, may consider downgrade to telemetry 12/21/2017 #Hypotension most likely due to overdiuresis vs new onset afib Upon admission to the telemetry floor the patient was found to have hypoxia despite 4 L of oxygen. The patient received an extra dose of Lasix. She then became hypotensive 70s/doppler and was given NS bolus 250ml x1. She was also found to be tachycardic. EKG then revealed afib with V3-[address]- depression. Right side precordial EKG done, no ST-segment mirror image but 1-1.[address] elevation on V4-6. Cardiology wrecommended moving the patient to the ICU for amiodarone drip and an extra dose of 250ml NS bolus. Tylenol was given x1 for mild fever. Blood cx x2 were drawn and lactic acid was draw. Vicki in NSR -Amiodarone 400 mg BID, will turn off IV Amiodarone once PO has been given. -cont heparin drip -cont monitoring vitals #Elevated troponins She was then also found to have elevated troponin of 4.5. She was asymptomatic. She received full dose asaparin once and started on IV heparin drip. A statin was also started and beta wesley was held due to her CHF. Troponins trended to 2.38 then peaked to 6.19 -cont atorvastatin -cont aspirin #Lethargy/AMS possibly due to new onset of L conjunctivitis Appears mentation has improved today. Previous CT head no acute intracranial territorial infarction or hemorrhage. Moderate diffuse parenchymal volume loss and mild chronic white matter microangiopathy. Severe chronic frontoethmoid sinus disease. -cont erythromycin and monitor #PVD or RLE? -cont to monitor #chronic medical problems: osteopenia, bipolar, Graves' disease, Alzheimer dementia, depression, history of breast cancer, hypertension -cont alendronate, vitamind d, donepezil, depakote, cyproheptadine, clonazepam, levothyroxine, aripprazole, trazodone, #HOUSE KEEPING Chopped mechanical and thin liquid diet, tolerating PO Intake well. Hsieh--> may consider d/c later today. DNR/DNI Heparin drip Family is ok for central line for pressors if needed Contact Tori (daughter) [phone] Problem List: 1. CHF (congestive heart failure) 2. Afib 3. Elevated troponin Pain Ratin Tomorrow's Labs & Rationales: CBC: Moniroting WBC and H/H in the setting of acute illness. ICU bundle: Moniroting electrolyte in the setting of acute illness. Plan DVT/Prophylaxis: heparin drFrancisco Gomez MD 12/20/17 0933: Attending MD Review Statement Attending Sign Off Attending Cosign Statement: I have: examined this patient, reviewed avalbl EMR data, personally reviewd images, discussd w/resident/PA/METALIZING SUPERVISOR, discussed mgmt plan w/nicolasa, discussed mgmt plan w/CM, discussed mgmt plan w/pt, agreed w/resident/PA/METALIZING SUPERVISOR, amended to note. Other Findings: IFrancisco M.D. have examined this patient, reviewed available EMR data, personally reviewed images, discussed with resident/PA/METALIZING SUPERVISOR, discussed management plan with housestaff and nursing staff, discussed managment plan all of healthcare providers, discussed management plan with patient and/or family, agreed with resident/PA/METALIZING SUPERVISOR. The past history and parts of the chart have been autopopulated. Impression 87 year old woman * acute chf likely secondary to severe aortic stenosis with pulmonary edema and acute hypoxemic respiratory failure * new onset a.fib now in sinus rhythm * episode of hypotension, resolved * troponinemia Plan -f/u cardiology, continue to discuss treatment plan of conservative medical management vs consideration for catheterization -DNR/DNI, goals of care being addressed -continue amiodarone and heparin gtt -reduce fio2 to a goal of spo2 >92% DVT prophylaxis at all times TTS 35 min D/w housestaff, nursing staff, family once amiodarone drip can be stopped, would transfer to telemetry
[2017-12-20 10:34] LABS: PTT 84 SEC (25-37)
--- NOTE | 2017-12-20 11:08 | PN- Cardiology ---
Subjective Subjective: The patient is much more alert today. Shortness of breath is improving. No chest pain. No palpitations. Hypertension has improved. No further atrial fibrillation. Objective Vital Signs and I&Os Vital Signs Date Time Temp Pulse Resp B/P B/P Pulse O2 O2 Flow FiO2 Mean Ox Delivery Rate 12/20 0400 96 Nasal 4.0L Cannula 12/20 0251 90 24 109/49 12/20 0000 98 Nasal 4.0L Cannula 12/19 2349 98.5 80 20 119/43 99 Nasal Cannula 12/19 2000 96 Nasal 4.0L Cannula 12/19 1946 94 Nasal 4.0L Cannula 12/19 194 98.4 78 20 118/56 97 Nasal Cannula 12/19 1623 81 21 110/60 12/19 1600 96 Nasal 4.0L Cannula 12/19 1600 99.2 84 21 110/60 96 Nasal 4.0L Cannula 12/19 1200 95 Nasal 4.0L Cannula 12/19 1100 94 Nasal 2.0L Cannula Intake & Output 12/20 1600 12/20 0800 12/20 0000 12/19 1600 12/19 0800 12/19 0000 Intake Total 396 057 419 9312 Output Total 375 650 175 815 Balance 21 -149 649 565 Intake, IV 296 261 824 100 Intake, Oral 891 259 6851 Number 1 Bowel Movements Output, Urine 375 650 175 815 Patient 139 lb 136 lb 136 lb Weight Weight Bed scale Measurement Method Physical Exam: Gen: The patient is in no acute distress HEENT: Normal nose, ears, and oropharynx. Pupils equal bilaterally. Conjunctiva normal. Neck: Supple with no JVD, no masses, and no thyromegaly Lungs: Scattered rhonchi with normal respiratory effort Heart: RRR, S1, S2, 2 out of 6 systolic murmur. 1+ peripheral edema, 2+ pulses in the lower extremities bilaterally Abdomen: Soft, nontender, no masses. No hepatomegaly. No splenomegaly Extremities: No clubbing or cyanosis. Normal muscle strength in the upper and lower extremities Skin: Normal skin turgor with no skin ulcers or lesions noted. Neuro: Cranial nerves intact. Sensation intact Psych: Alert and oriented x 3 with appropriate affect Current Medications: Current Medications Sig/Cordell Start time Last Medication Dose Route Stop Time Status Admin Albuterol Sulfate 3 ML Q4P PRN 12/17 1929 AC 05/17 INH 1921 Alendronate Sodium 70 MG Larose@0700 12/20 0700 AC 12/20 PO 0612 Amiodarone HCl 400 MG BID 12/20 1100 UNVr PO Amiodarone HCl/ 360 MG Q12H 12/17 2240 AC 12/20 Dextrose IV 0251 N/A 1 UNIT Aripiprazole 5 MG DAILY AC 12/18 0700 AC 12/20 PO 0611 Aspirin 81 MG DAILY 12/18 0900 AC 12/20 PO 1037 Atorvastatin Calcium 80 MG 1700 12/18 1700 AC 12/19 PO 1710 Calcium/Vitamin D 1 TAB DAILY 12/18 0900 AC 12/20 PO 1037 Cholecalciferol 400 IU DAILY 12/18 0900 AC 12/20 PO 1037 Clonazepam 0.5 MG DAILY 12/18 0900 AC 12/20 PO 12/25 0859 1101 Cyproheptadine HCl 4 MG DAILY 12/18 0900 AC 12/20 PO 1040 Divalproex Sodium 500 MG DAILY 12/18 0900 AC 12/20 PO 1042 Divalproex Sodium 250 MG AT BEDTIME 12/17 2100 AC 12/19 PO 2108 Donepezil HCl 10 MG DAILY 12/18 0900 AC 12/20 PO 1038 Erythromycin 1 LILLIAM 4 TIMES/DAY 12/19 1300 AC 12/20 OPH 1040 Furosemide 20 MG 7:30 AM, & 4:30 PM 12/20 1630 AC IV Furosemide 20 MG ONCE ONE 12/20 0945 DC IV 12/20 0946 Furosemide 40 MG DAILY 12/18 0900 DC IV Heparin Sodium 5,000 UNIT .STK-MED ONE 12/19 145 DC (Porcine) IV 12/19 1457 Heparin Sodium 25,000 UNIT Q24H 12/17 2045 AC 12/20 (Porcine) IV 0644 Sodium Chloride 500 ML Levothyroxine Sodium 0.075 MG DAILY AC 12/18 0700 AC 12/20 PO 0611 Multivitamins 1 TAB DAILY 12/18 0900 AC 12/20 Therapeutic PO 1037 Senna 187 MG AT BEDTIME PRN 12/20 1100 AC PO Trazodone HCl 100 MG .STK-MED ONE 12/20 2055 DC PO 12/19 205 Trazodone HCl 100 MG QPM 12/17 2100 AC 12/19 PO 2108 Results Last 48 Hrs of Labs/Mics: Laboratory Tests 12/20/17 0915: APTT 84 H 12/20/17 0400: Anion Gap 8, Estimated GFR > 60, Glucose 97, Calcium 8.2 L, Phosphorus 3.0, Magnesium 2.2, Total Bilirubin 0.3, AST 33, ALT 22, Albumin 2.8 L, CBC w Diff NO MAN DIFF REQ, RBC 4.29, MCV 88.7, MCH 28.9, MCHC 32.6 L, RDW 15.6 H, MPV 9.8, Gran % 79.9 H, Lymphocytes % 8.6 L, Monocytes % 10.5 H, Eosinophils % 0.7, Basophils % 0.3, Absolute Granulocytes 4.9, Absolute Lymphocytes 0.5 L, Absolute Monocytes 0.6, Absolute Eosinophils 0, Absolute Basophils 0 12/19/17 2100: APTT 74 H 12/19/17 1230: APTT 34 12/19/17 0500: Anion Gap 10, Estimated GFR 60, Glucose 108 H, Calcium 7.6 L, Phosphorus 2.6, Magnesium 2.0, Total Bilirubin 0.3, AST 41 H, ALT 23, Albumin 2.7 L, APTT 91 H, CBC w Diff NO MAN DIFF REQ, RBC 4.32, MCV 88.8, MCH 29.3, MCHC 33.0, RDW 15.8 H, MPV 9.8, Gran % 81.2 H, Lymphocytes % 8.3 L, Monocytes % 10.3 H, Eosinophils % 0.2, Basophils % 0, Absolute Granulocytes 5.1, Absolute Lymphocytes 0.5 L, Absolute Monocytes 0.7 H, Absolute Eosinophils 0, Absolute Basophils 0 12/18/17 2127: APTT 53 H 12/18/17 1815: Troponin I 4.02 *H 12/18/17 1324: Troponin I 6.14 *H Recent Imaging Studies: Head CT: No acute intracranial territorial infarction or hemorrhage. Moderate diffuse parenchymal volume loss and mild chronic white matter microangiopathy. Severe chronic frontoethmoid sinus disease. Chest x-ray 12/19/17 1. Progression of pulmonary edema. 2. New left basilar consolidation versus atelectasis with associated small to moderate left pleural effusion. 3. New trace right pleural effusion. Assessment/Plan Assessment/Plan Assessment: 1. Aortic stenosis, severe by valve area with gradient in the moderate moderate range 2. Paroxysmal atrial fibrillation 3. Non-ST elevation myocardial infarction 4. Acute diastolic heart failure Plan: * I had a long discussion with the patient along with her and daughter regarding options for therapy. We discussed cardiac catheterization and evaluation for possible TAVR. Given the patient's progressive dementia, the patient and family prefer to treat with conservative medical therapy for now, however they may consider cardiac catheterization and/or TAVR in the future if necessary * Start oral amiodarone 400 mg p.o. twice daily 1 week followed by 200 mg daily * Discontinue amiodarone drip when oral amiodarone is started * Resume Lasix at a dose of 20 mg IV every 12 hours * Follow input and output with daily weights * Check basic metabolic profile daily * Once ready for discharge, she will likely need rehab placement. The patient's family notes that she has become difficult to care for at home. Critical care time: 35 minutes Continue telemetry? Yes
[2017-12-20 17:00] VITALS: BP 119/62
[2017-12-20 23:00] LABS: PTT 50 SEC (25-37)
[2017-12-21] VITALS: BP 124/70
[2017-12-21 06:15] LABS: ABSOLUTE BASOPHIL COUNT 0 /CUMM (0.0-0.2); ABSOLUTE EOSINOPHIL COUNT 0.1 /CUMM (0.0-0.7); ABSOLUTE GRANULOCYTE CT 5.5 /CUMM (1.4-6.5); ABSOLUTE LYMPH COUNT 0.5 /CUMM (1.2-3.4); ABSOLUTE MONOCYTE COUNT 0.7 /CUMM (0.10-0.60); BASOPHIL % 0.1 % (0.0-2.0); EOSINOPHIL % 0.9 % (0-5); HEMATOCRIT 37.8 % (37-47); MEAN CORPUSCULAR HGB 28.9 PG (27.0-31.0); MEAN CORPUSCULAR HGB CONC 33.1 G/DL (33.0-37.0); MEAN CORPUSCULAR VOLUME 87.3 FL (81.0-99.0); MEAN PLATELET VOLUME 9.6 FL (7.4-10.4); PLATELET COUNT 167 /CUMM (130-400); RED BLOOD CELL CT 4.32 /CUMM (4.20-5.40); WHITE BLOOD CELL COUNT 6.8 /CUMM (4.8-10.8)
[2017-12-21 06:25] LABS: PTT 102 SEC (25-37)
--- NOTE | 2017-12-21 07:28 | PN- Resident CRCU ---
Petey CHRISTINE,[facility] 12/21/17 0727: Subjective HPI/CRCU Issues: Switched from IV amio to po amio. This AM had ?SVT with abberancy and hypotension after lasix. Converted back to NSR spontaenously with resolution of BP. Objective Vital Signs & I&O Last 8 Hrs of Vitals and I&O: Laboratory Tests 12/21/17 0545: Anion Gap 8, Estimated GFR 60, Glucose 108 H, Calcium 8.6, Phosphorus 2.7, Magnesium 2.0, Total Bilirubin 0.3, AST 32, ALT 31, Albumin 3.0 L, APTT 102 *H, CBC w Diff NO MAN DIFF REQ, RBC 4.32, MCV 87.3, MCH 28.9, MCHC 33.1, RDW 15.0 H , MPV 9.6, Gran % 81.0 H, Lymphocytes % 7.6 L, Monocytes % 10.4 H, Eosinophils % 0.9, Basophils % 0.1, Absolute Granulocytes 5.5, Absolute Lymphocytes 0.5 L, Absolute Monocytes 0.7 H, Absolute Eosinophils 0.1, Absolute Basophils 0 12/20/175: APTT 50 H Vital Signs Date Time Temp Pulse Resp B/P B/P Pulse O2 O2 Flow FiO2 Mean Ox Delivery Rate 12/21 08 86 150/60 12/21 0800 98.0 82 20 128/62 94 Venti Mask 55% 12/21 0400 97 Nasal 3.0L Cannula Exam General Appearance: alert, awake Head: L eye conjunctivitis Respiratory: clear anterior breath sounds Cardiovascular: tachycardia Extremities: trace LE edema Current Medications: Current Medications Sig/Cordell Start time Last Medication Dose Route Stop Time Status Admin Albuterol Sulfate 3 ML Q4P PRN 12/17 1930 AC 12/17 INH 1921 Alendronate Sodium 70 MG Larose@0700 12/20 0700 AC 12/20 PO 0612 Amiodarone HCl 400 MG BID 12/20 1100 AC 12/21 PO 0816 Amiodarone HCl/ 360 MG Q12H 12/17 2240 DC 12/20 Dextrose IV 0251 N/A 1 UNIT Aripiprazole 5 MG DAILY AC 12/18 0700 AC 12/21 PO 0613 Aspirin 81 MG DAILY 12/18 0900 AC 12/21 PO 0816 Atorvastatin Calcium 80 MG 1700 12/18 1700 AC 12/20 PO 1801 Calcium/Vitamin D 1 TAB DAILY 12/18 0900 AC 12/21 PO 0816 Cholecalciferol 400 IU DAILY 12/18 0900 AC 12/21 PO 0816 Clonazepam 0.5 MG DAILY 12/18 0900 AC 12/21 PO 12/25 0859 0822 Cyproheptadine HCl 4 MG DAILY 12/18 0900 AC 12/21 PO 0817 Divalproex Sodium 500 MG DAILY 12/18 0900 AC 12/21 PO 0816 Divalproex Sodium 250 MG AT BEDTIME 12/17 2100 AC 12/20 PO 2141 Donepezil HCl 10 MG DAILY 12/18 09 AC 12/21 PO 0816 Erythromycin 1 LILLIAM 4 TIMES/DAY 12/19 1300 AC 12/21 OPH 0822 Furosemide 20 MG 7:30 AM, & 4:30 PM.. 12/21 1013 AC IV Furosemide 20 MG 7:30 AM, & 4:30 PM 12/20 1630 DC 12/21 IV 0809 Heparin Sodium 1,890 UNIT ONCE ONE 12/20 2330 DC (Porcine) IV 12/20 2331 Heparin Sodium 5,000 UNIT .STK-MED ONE 12/20 2323 DC (Porcine) IV 12/20 2324 Heparin Sodium 25,000 UNIT Q24H 12/17 204 AC 12/20 (Porcine) IV 2140 Sodium Chloride 500 ML Levothyroxine Sodium 0.075 MG DAILY AC 12/18 0700 AC 12/21 PO 0613 Metoprolol Tartrate 5 MG ONCE ONE 12/21 1000 CAN IV 12/21 1001 Multivitamins 1 TAB DAILY 12/18 0900 AC 12/21 Therapeutic PO 0816 Potassium Chloride 20 MEQ ONCE ONE 12/21 0900 DC PO 12/21 0901 Senna 187 MG AT BEDTIME PRN 12/20 1100 AC PO Trazodone HCl 100 MG QPM 12/17 2100 AC 12/20 PO 2141 Impression/Plan Impression/Problem List Impression: A: 87 year old female with past medical history significant for severe , HLD, bipolar, Graves' disease, Alzheimer dementia, depression, history of breast cancer, hypertension, severe aortic stenosis and recently admitted with altered mental status, hypothyroidism, and right lower extremity cellulitis treated with a course of antibiotics presenting for CHF and found to have hypotension, elevated troponins, and now was resolved new onset atrial fibrillation. P: #CHF in the setting of severe Last echo July 2017 revealed LVEF >65% with severe Aortic stenosis. Initial CXR revaeled: Hilar vascular engorgement, early interstitial edema, and trace effusions. Probnp 9520 Echo: EF >55% with severe Repeat CXR: 1. Progression of pulmonary edema. 2. New left basilar consolidation vs atelectasis -cont lasix po. be careful as patient has severe . BP very sensitive to lasix. -Continue to have discussion with family regarding possible cath + TAVR #Hypotension most likely due to overdiuresis vs paroxysmal afib Upon admission to the telemetry floor the patient was found to have hypoxia despite 4 L of oxygen. The patient received an extra dose of Lasix. She then became hypotensive 70s/doppler and was given NS bolus 250ml x1. She was also found to be tachycardic. EKG then revealed afib with V3-[address]- depression. Right side precordial EKG done, no ST-segment mirror image but 1-1.[address] elevation on V4-6. Cardiology wrecommended moving the patient to the ICU for amiodarone drip and an extra dose of 250ml NS bolus. Tylenol was given x1 for mild fever. Blood cx x2 were drawn and lactic acid was draw. The patient returned to NSR around 1:30AM during admission day. She returned to afib 11:50pm on 12/18. 500ml NS bolus and 1 extra dose of amioadorne was given. She converted back to sinus at 2am. On 12/21 the patient had another episode of hypotension in tachycardia ?SVT with aberrancy after her a.m. dose of Lasix. The patient spontaneously converted about an hour later and blood pressure improved spontaneously. -Start metoprolol tomorrow -Stop amiodarone drip. Continue amiodarone by mouth -cont heparin drip -cont monitoring vitals #Elevated troponins She was then also found to have elevated troponin of 4.5. She was asymptomatic. She received full dose asaparin once and started on IV heparin drip. A statin was also started and beta wesley was held due to her CHF. Troponins trended to 2.38 then peaked to 6.19 -Continue to have discussions with family regarding possible cath + TAVR. At this time they would like conservative management. -cont atorvastatin -cont aspirin #Lethargy/AMS possibly due to new onset of L conjunctivitis Patient found to be more lethargic than normal. Also found to have L conjunctivitis. CT head no acute intracranial territorial infarction or hemorrhage. Moderate diffuse parenchymal volume loss and mild chronic white matter microangiopathy. Severe chronic frontoethmoid sinus disease. -cont erythromycin and monitor -will reduce clonazapam to .25 #PVD or RLE? Doplper pulses of b/l feet. Cold RLE -cont to monitor #chronic medical problems: osteopenia, bipolar, Graves' disease, Alzheimer dementia, depression, history of breast cancer, hypertension -cont alendronate, vitamind d, donepezil, depakote, cyproheptadine,levothyroxine , aripprazole, trazodone, -holding clonazepam, #HOUSE KEEPING Chopped mechanical and nectar thick diet Hsieh DNR/DNI Heparin drip Family is ok for central line for pressors if needed Contact Tori (daughter) [phone] Problem List: 1. Lethargy 2. Elevated troponin 3. Afib 4. CHF (congestive heart failure) 5. Aortic stenosis Pain Ratin Tomorrow's Labs & Rationales: cbc icu Plan DVT/Prophylaxis: heparin drFrancisco Gomez MD 12/21/17 1613: Attending MD Review Statement Attending Sign Off Attending Cosign Statement: I have: examined this patient, reviewed avalbl EMR data, personally reviewd images, discussd w/resident/PA/WOOD HEEL FINISHER, discussed mgmt plan w/nicolasa, discussed mgmt plan w/CM, discussed mgmt plan w/pt, agreed w/resident/PA/WOOD HEEL FINISHER, amended to note. Other Findings: IFrancisco M.D. have examined this patient, reviewed available EMR data, personally reviewed images, discussed with resident/PA/WOOD HEEL FINISHER, discussed management plan with housestaff and nursing staff, discussed managment plan all of healthcare providers, discussed management plan with patient and/or family, agreed with resident/PA/WOOD HEEL FINISHER. The past history and parts of the chart have been autopopulated. Impression 87 year old woman * acute chf likely secondary to severe aortic stenosis with pulmonary edema and acute hypoxemic respiratory failure * new onset a.fib now in sinus rhythm * episode of hypotension, resolved * troponinemia Plan -conjunctivitis - erythromycin ointment -rate control -f/u cardiology, continue to discuss treatment plan of conservative medical management vs consideration for catheterization -DNR/DNI, goals of care being addressed -continue amiodarone and heparin gtt -reduce fio2 to a goal of spo2 >92% DVT prophylaxis at all times TTS 35 min
--- NOTE | 2017-12-21 07:41 | RADIOLOGY REPORT ---
EXAMINATION: XR PORTABLE CHEST CLINICAL INFORMATION: O2 desaturation COMPARISON: Chest x-ray most recent prior dated 12/19/2017 TECHNIQUE: Portable frontal view of the chest was obtained. FINDINGS: Stable cardiomegaly. Mild prominence of the interstitial markings bilateral lungs likely representing chronic change with mild superimposed interstitial edema. Improved aeration compared to most recent prior chest x-ray dated 12/19/2017. Previously seen opacity bilateral bases demonstrate improved aeration. Minor residual atelectasis left base. Improved effusion. IMPRESSION: Mild residual interstitial edema. Improved aeration right lateral lower lungs.
[2017-12-21 08:00] VITALS: BP 128/62
--- NOTE | 2017-12-21 11:23 | PN- Cardiology ---
Subjective Subjective: The patient was noted to develop SVT this morning after receiving her Lasix. She was hypotensive while in the SVT with systolic blood pressure in the 90s. She converted to sinus rhythm before receiving any medical therapy for the SVT. Objective Vital Signs and I&Os Vital Signs Date Time Temp Pulse Resp B/P B/P Pulse O2 O2 Flow FiO2 Mean Ox Delivery Rate 12/21 0816 86 150/60 12/21 0800 98.0 82 20 128/62 94 Venti Mask 55% 12/21 0400 97 Nasal 3.0L Cannula 12/21 0000 94 Nasal 3.0L Cannula 12/21 0000 98.5 90 20 124/70 94 Nasal 3.0L Cannula 12/20 2140 98 149/70 12/20 2119 95 Nasal 3.0L Cannula 12/20 2000 94 Nasal 3.0L Cannula 12/20 1700 98 Nasal 4.0L Cannula 12/20 1700 98.0 90 20 119/62 98 Nasal 4.0L Cannula 12/20 1401 98 Nasal 3.0L Cannula 12/20 1200 96 Nasal 4.0L Cannula Intake & Output 12/21 1600 12/21 0800 12/21 0000 12/20 1600 12/20 0800 12/20 0000 Intake Total 287 742.8 857 396 501 Output Total 642 737 2945 375 650 Balance 57 -167.2 -203 21 -149 Intake, IV 187 172.8 257 296 261 Intake, Oral 100 570 600 100 240 Number 1 Bowel Movements Output, Urine 853 426 4929 375 650 Patient 140 lb 139 lb Weight Weight Bed scale Bed scale Measurement Method Physical Exam: Gen: The patient is in no acute distress HEENT: Normal nose, ears, and oropharynx. Pupils equal bilaterally. Conjunctiva normal. Neck: Supple with no JVD, no masses, and no thyromegaly Lungs: Scattered rhonchi with normal respiratory effort Heart: RRR, S1, S2, 2 out of 6 systolic murmur. 1+ peripheral edema, 2+ pulses in the lower extremities bilaterally Abdomen: Soft, nontender, no masses. No hepatomegaly. No splenomegaly Extremities: No clubbing or cyanosis. Normal muscle strength in the upper and lower extremities Skin: Normal skin turgor with no skin ulcers or lesions noted. Neuro: Cranial nerves intact. Sensation intact Psych: Alert and oriented x 3 with appropriate affect Current Medications: Current Medications Sig/Cordell Start time Last Medication Dose Route Stop Time Status Admin Albuterol Sulfate 3 ML Q4P PRN 12/17 1930 AC 12/17 INH 1921 Alendronate Sodium 70 MG Larose@0700 12/20 0700 AC 12/20 PO 0612 Amiodarone HCl 400 MG BID 12/20 1100 AC 12/21 PO 0816 Amiodarone HCl/ 360 MG Q12H 12/17 2240 DC 12/20 Dextrose IV 0251 N/A 1 UNIT Aripiprazole 5 MG DAILY AC 12/18 0700 AC 12/21 PO 0613 Aspirin 81 MG DAILY 12/18 09 AC 12/21 PO 0816 Atorvastatin Calcium 80 MG 1700 12/18 1700 AC 12/20 PO 1801 Calcium/Vitamin D 1 TAB DAILY 12/18 0900 AC 12/21 PO 0816 Cholecalciferol 400 IU DAILY 12/18 0900 AC 12/21 PO 0816 Clonazepam 0.5 MG DAILY 12/18 0900 AC 12/21 PO 12/25 0859 0822 Cyproheptadine HCl 4 MG DAILY 12/18 0900 AC 12/21 PO 0817 Divalproex Sodium 500 MG DAILY 12/18 09 AC 12/21 PO 0816 Divalproex Sodium 250 MG AT BEDTIME 12/17 2100 AC 12/20 PO 2141 Donepezil HCl 10 MG DAILY 12/18 09 AC 12/21 PO 0816 Erythromycin 1 LILLIAM 4 TIMES/DAY 12/19 1300 AC 12/21 OPH 0822 Furosemide 20 MG 7:30 AM, & 4:30 PM.. 12/21 1013 AC IV Furosemide 20 MG 7:30 AM, & 4:30 PM 12/20 1630 DC 12/21 IV 0809 Heparin Sodium 1,890 UNIT ONCE ONE 12/20 2330 DC (Porcine) IV 12/20 2331 Heparin Sodium 5,000 UNIT .STK-MED ONE 12/20 2323 DC (Porcine) IV 12/20 2324 Heparin Sodium 25,000 UNIT Q24H 12/17 2045 AC 12/20 (Porcine) IV 2140 Sodium Chloride 500 ML Levothyroxine Sodium 0.075 MG DAILY AC 12/18 0700 AC 12/21 PO 0613 Metoprolol Tartrate 5 MG ONCE ONE 12/21 1000 CAN IV 12/21 1001 Multivitamins 1 TAB DAILY 12/18 0900 AC 12/21 Therapeutic PO 0816 Potassium Chloride 20 MEQ ONCE ONE 12/21 0900 DC PO 12/21 0901 Senna 187 MG AT BEDTIME PRN 12/20 1100 AC PO Trazodone HCl 100 MG QPM 12/17 2099 AC 12/20 PO 2141 Results Last 48 Hrs of Labs/Mics: Laboratory Tests 12/21/17 0545: Anion Gap 8, Estimated GFR 60, Glucose 108 H, Calcium 8.6, Phosphorus 2.7, Magnesium 2.0, Total Bilirubin 0.3, AST 32, ALT 31, Albumin 3.0 L, APTT 102 *H, CBC w Diff NO MAN DIFF REQ, RBC 4.32, MCV 87.3, MCH 28.9, MCHC 33.1, RDW 15.0 H , MPV 9.6, Gran % 81.0 H, Lymphocytes % 7.6 L, Monocytes % 10.4 H, Eosinophils % 0.9, Basophils % 0.1, Absolute Granulocytes 5.5, Absolute Lymphocytes 0.5 L, Absolute Monocytes 0.7 H, Absolute Eosinophils 0.1, Absolute Basophils 0 12/20/17 2145: APTT 50 H 12/20/17 0915: APTT 84 H 12/20/17 0400: Anion Gap 8, Estimated GFR > 60, Glucose 97, Calcium 8.2 L, Phosphorus 3.0, Magnesium 2.2, Total Bilirubin 0.3, AST 33, ALT 22, Albumin 2.8 L, CBC w Diff NO MAN DIFF REQ, RBC 4.29, MCV 88.7, MCH 28.9, MCHC 32.6 L, RDW 15.6 H, MPV 9.8, Gran % 79.9 H, Lymphocytes % 8.6 L, Monocytes % 10.5 H, Eosinophils % 0.7, Basophils % 0.3, Absolute Granulocytes 4.9, Absolute Lymphocytes 0.5 L, Absolute Monocytes 0.6, Absolute Eosinophils 0, Absolute Basophils 0 12/19/17 2100: APTT 74 H 12/19/17 1230: APTT 34 Assessment/Plan Assessment/Plan Assessment: 1. Aortic stenosis, severe by valve area with gradient in the moderate moderate range 2. Paroxysmal atrial fibrillation 3. Non-ST elevation myocardial infarction 4. Acute diastolic heart failure 5. Paroxysmal SVT with aberrant conduction Plan: * Start metoprolol 12.5 mg p.o. twice daily * Continue p.o. amiodarone * Change Lasix to 20 mg p.o. daily * Continue IV heparin Continue telemetry? Yes
[2017-12-21 15:22] LABS: PTT 48 SEC (25-37)
[2017-12-21 16:00] VITALS: BP 152/80
[2017-12-22] VITALS: BP 128/59
[2017-12-22 00:46] LABS: PTT 80 SEC (25-37)
[2017-12-22 05:09] LABS: ABSOLUTE BASOPHIL COUNT 0 /CUMM (0.0-0.2); ABSOLUTE EOSINOPHIL COUNT 0.2 /CUMM (0.0-0.7); ABSOLUTE GRANULOCYTE CT 5.2 /CUMM (1.4-6.5); ABSOLUTE LYMPH COUNT 0.5 /CUMM (1.2-3.4); ABSOLUTE MONOCYTE COUNT 0.7 /CUMM (0.10-0.60); BASOPHIL % 0 % (0.0-2.0); EOSINOPHIL % 2.5 % (0-5); GRANULOCYTE % 79.4 % (42.2-75.2); MEAN CORPUSCULAR HGB 29.2 PG (27.0-31.0); MEAN CORPUSCULAR VOLUME 88.4 FL (81.0-99.0); MEAN PLATELET VOLUME 9.4 FL (7.4-10.4); PLATELET COUNT 180 /CUMM (130-400); RBC DISTRIBUTION WIDTH 15.3 % (11.5-14.5); WHITE BLOOD CELL COUNT 6.6 /CUMM (4.8-10.8)
[2017-12-22 08:00] VITALS: BP 110/60
--- NOTE | 2017-12-22 08:09 | PN- Resident CRCU ---
Petey CHRISTINE,[facility] 12/22/17 0808: Subjective HPI/CRCU Issues: Continued to have lethargy yesterday. Clonazepam was held for this AM. Patient had trouble swallowing yesterday and started on mechanical soft and nectar thick liquids. 24 Hour Events: Tmax 99.1 Heart rate 78741, currently in 60s Respiratory rate 1838 Blood pressure 76089/376 1 9094 percent oxygen saturation on 4 L Objective Vital Signs & I&O Last 8 Hrs of Vitals and I&O: Laboratory Tests 12/22/17 0444: Anion Gap 8, Estimated GFR > 60, Glucose 124 H, Calcium 8.5, Phosphorus 4.1, Magnesium 2.1, Total Bilirubin 0.3, AST 29, ALT 32, Albumin 2.7 L, CBC w Diff MAN DIFF ORDERED, RBC 4.30, MCV 88.4, MCH 29.2, MCHC 33.0, RDW 15.3 H, MPV 9.4, Gran % 79.4 H, Lymphocytes % 7.5 L, Monocytes % 10.6 H, Eosinophils % 2.5, Basophils % 0, Absolute Granulocytes 5.2, Segmented Neutrophils 78 H, Band Neutrophils 2, Absolute Lymphocytes 0.5 L, Lymphocytes 9 L, Monocytes 6, Absolute Monocytes 0.7 H, Eosinophils 3, Absolute Eosinophils 0.2, Basophils 2, Absolute Basophils 0, Platelet Estimate ADEQUATE, Polychromasia 1+, Poikilocytosis 1+, Basophilic Stippling RARE, Ovalocytes 1+, Stomatocytes FEW, Fld Total RBCs Counted 100 12/22/17 0020: APTT 80 H 12/21/17 1345: APTT 48 H 12/21/17 1230: APTT Cancelled Vital Signs Date Time Temp Pulse Resp B/P B/P Pulse O2 O2 Flow FiO2 Mean Ox Delivery Rate 12/22 0400 92 Nasal 4.0L Cannula Exam General Appearance: lethargic but able to answer simple questions Current Medications: Current Medications Sig/Cordell Start time Last Medication Dose Route Stop Time Status Admin Albuterol Sulfate 3 ML Q4P PRN 12/17 1930 DC 12/17 INH 1921 Alendronate Sodium 70 MG Larose@0700 12/20 0700 AC 12/20 PO 0612 Amiodarone HCl 400 MG BID 12/20 1100 AC 12/22 PO 1044 Aripiprazole 5 MG DAILY AC 12/18 0700 AC 12/22 PO 0636 Aspirin 81 MG DAILY 12/18 0900 AC 12/22 PO 1044 Atorvastatin Calcium 80 MG 1700 12/18 1700 AC 12/21 PO 1751 Calcium/Vitamin D 1 TAB DAILY 12/18 0900 AC 12/22 PO 1044 Cholecalciferol 400 IU DAILY 12/18 0900 AC 12/22 PO 1045 Cyproheptadine HCl 4 MG DAILY 12/18 0900 AC 12/22 PO 1044 Divalproex Sodium 500 MG DAILY 12/18 0900 AC 12/22 PO 1043 Divalproex Sodium 250 MG AT BEDTIME 12/17 2100 AC 12/21 PO 2200 Donepezil HCl 10 MG DAILY 12/18 09 AC 12/22 PO 1043 Erythromycin 1 LILLIAM 4 TIMES/DAY 12/19 1300 AC 12/22 OPH 1045 Furosemide 20 MG DAILY PRN 12/22 0900 AC PO Heparin Sodium 25,000 UNIT Q24H 12/17 2044 AC 12/20 (Porcine) IV 2140 Sodium Chloride 500 ML Levothyroxine Sodium 0.075 MG DAILY AC 12/18 0700 AC 12/22 PO 0636 Metoprolol Tartrate 12.5 MG BID 12/21 2100 AC 12/22 PO 1044 Metoprolol Tartrate 5 MG .STK-MED ONE 12/21 1746 DC IV 12/21 174 Multivitamins 1 TAB DAILY 12/18 09 AC 12/22 Therapeutic PO 1044 Senna 187 MG AT BEDTIME PRN 12/20 1100 AC PO Trazodone HCl 100 MG QPM 12/17 2100 AC 12/21 PO 211 Impression/Plan Impression/Problem List Impression: A: 87 year old female with past medical history significant for severe , HLD, bipolar, Graves' disease, Alzheimer dementia, depression, history of breast cancer, hypertension, severe aortic stenosis and recently admitted with altered mental status, hypothyroidism, and right lower extremity cellulitis treated with a course of antibiotics presenting for CHF and found to have hypotension, elevated troponins, and now was resolved new onset atrial fibrillation. P: #CHF in the setting of severe Initial CXR revaeled: Hilar vascular engorgement, early interstitial edema, and trace effusions. Probnp 9520 Last echo July 2017 revealed LVEF >65% with severe Aortic stenosis. Echo: EF >55% with severe Repeat CXR: Mild residual interstitial edema. Improved aeration right lateral lower lungs. -cont lasix po. be careful as patient has severe . BP very sensitive to lasix. -Continue to have discussion with family regarding possible cath + TAVR #Hypotension most likely due to overdiuresis vs paroxysmal afib Upon admission to the telemetry floor the patient was found to have hypoxia despite 4 L of oxygen. The patient received an extra dose of Lasix. She then became hypotensive 70s/doppler and was given NS bolus 250ml x1. She was also found to be tachycardic. EKG then revealed afib with V3-[address]- depression. Right side precordial EKG done, no ST-segment mirror image but 1-1.[address] elevation on V4-6. Cardiology wrecommended moving the patient to the ICU for amiodarone drip and an extra dose of 250ml NS bolus. Tylenol was given x1 for mild fever. Blood cx x2 were drawn and lactic acid was draw. The patient returned to NSR around 1:30AM during admission day. She returned to afib 11:50pm on 12/18. 500ml NS bolus and 1 extra dose of amioadorne was given. She converted back to sinus at 2am. On 12/21 the patient had another episode of hypotension in tachycardia ?SVT with aberrancy after her a.m. dose of Lasix. The patient spontaneously converted about an hour later and blood pressure improved spontaneously. -No episodes of tachycardia/A. fib since starting metoprolol yesterday. BP stable and improved. HR well controlled in 60s. -Continue amiodarone by mouth -cont heparin drip -cont monitoring vitals #NSTEMI She was then also found to have elevated troponin of 4.5. She was asymptomatic. She received full dose asaparin once and started on IV heparin drip. A statin was also started and beta wesley was held due to her CHF. Troponins trended to 2.38 then peaked to 6.19 -Continue to have discussions with family regarding possible cath + TAVR. At this time they would like conservative management. -cont atorvastatin -cont aspirin #Lethargy/AMS possibly due to new onset of L conjunctivitis and ? aspiration Patient found to be more lethargic than normal. Also found to have L conjunctivitis. CT head no acute intracranial territorial infarction or hemorrhage. Moderate diffuse parenchymal volume loss and mild chronic white matter microangiopathy. Severe chronic frontoethmoid sinus disease. -cont erythromycin and monitor -holding clonazepam. monitor signs of withdrawal #PVD of RLE? Doplper pulses of b/l feet. Cold RLE -cont to monitor #chronic medical problems: osteopenia, bipolar, Graves' disease, Alzheimer dementia, depression, history of breast cancer, hypertension -cont alendronate, vitamind d, donepezil, depakote, cyproheptadine,levothyroxine , aripprazole, trazodone, -holding clonazepam, #HOUSE KEEPING Chopped mechanical and nectar thick diet Hsieh DNR/DNI Heparin drip Family is ok for central line for pressors if needed Contact Tori (daughter) [phone] Problem List: 1. Elevated troponin 2. Lethargy 3. Afib 4. CHF (congestive heart failure) 5. Aortic stenosis 6. Pulmonary edema Pain Ratin Tomorrow's Labs & Rationales: bep mg Plan DVT/Prophylaxis: heparin Francisco Cloud MD 12/22/17 1211: Attending MD Review Statement Attending Sign Off Attending Cosign Statement: I have: examined this patient, reviewed avalbl EMR data, personally reviewd images, discussd w/resident/PA/UNION REPRESENTATIVE, discussed mgmt plan w/nicolasa, discussed mgmt plan w/CM, discussed mgmt plan w/pt, agreed w/resident/PA/UNION REPRESENTATIVE, amended to note. Other Findings: IFrancisco M.D. have examined this patient, reviewed available EMR data, personally reviewed images, discussed with resident/PA/UNION REPRESENTATIVE, discussed management plan with housestaff and nursing staff, discussed managment plan all of healthcare providers, discussed management plan with patient and/or family, agreed with resident/PA/UNION REPRESENTATIVE. The past history and parts of the chart have been autopopulated. Impression 87 year old woman * acute chf likely secondary to severe aortic stenosis with pulmonary edema and acute hypoxemic respiratory failure * new onset a.fib now in sinus rhythm * episode of hypotension, resolved * troponinemia Plan -conjunctivitis - erythromycin ointment -rate control -f/u cardiology, continue to discuss treatment plan of conservative medical management vs consideration for catheterization -DNR/DNI, goals of care being addressed -heparin gtt -amiodarone PO -reduce fio2 to a goal of spo2 >92% DVT prophylaxis at all times TTS 35 min DG to telmetry TTS 35 min
[2017-12-22 15:04] LABS: PTT 87 SEC (25-37)
[2017-12-22 16:00] VITALS: BP 130/68
--- NOTE | 2017-12-22 19:04 | PN- Cardiology ---
Subjective Subjective: More alert. Episodes of tachycardia. No further hypotension. No chest pain. Objective Vital Signs and I&Os Vital Signs Date Time Temp Pulse Resp B/P B/P Pulse O2 O2 Flow FiO2 Mean Ox Delivery Rate 12/22 1722 Nasal 4.0L Cannula 12/22 1600 96 Nasal 4.0L Cannula 12/22 1600 97.8 71 22 130/68 95 Nasal 4.0L Cannula 12/22 1044 72 148/68 12/22 1044 72 148/68 12/22 0800 94 Nasal 4.0L Cannula 12/22 0800 97.3 70 24 110/60 94 Nasal 4.0L Cannula 12/22 0400 92 Nasal 4.0L Cannula 12/22 0000 94 Nasal 3.0L Cannula 12/22 0000 97.3 72 29 128/59 94 Nasal 3.0L Cannula 12/21 2115 72 126/59 12/21 2114 72 126/59 12/21 2014 94 Nasal 3.0L Cannula 12/22 1999 98 Nasal 3.0L Cannula Intake & Output 12/22 1600 12/22 0800 12/22 0000 12/21 1600 12/21 0800 12/21 0000 Intake Total 576 118 498 479 287 742.8 Output Total 275 289 489 1955 230 910 Balance 301 -132 198 -671 57 -167.2 Intake, IV 176 118 198 129 187 172.8 Intake, Oral 400 300 350 100 570 Number 0 0 Bowel Movements Output, Urine 275 448 943 5003 230 910 Patient 144 lb 140 lb Weight Weight Bed scale Bed scale Measurement Method Physical Exam: Gen: The patient is in no acute distress HEENT: Normal nose, ears, and oropharynx. Pupils equal bilaterally. Conjunctiva normal. Neck: Supple with no JVD, no masses, and no thyromegaly Lungs: Scattered rhonchi with normal respiratory effort Heart: RRR, S1, S2, 2 out of 6 systolic murmur. 1+ peripheral edema, 2+ pulses in the lower extremities bilaterally Abdomen: Soft, nontender, no masses. No hepatomegaly. No splenomegaly Extremities: No clubbing or cyanosis. Normal muscle strength in the upper and lower extremities Skin: Normal skin turgor with no skin ulcers or lesions noted. Neuro: Cranial nerves intact. Sensation intact Psych: Alert and oriented x 3 with appropriate affect Current Medications: Current Medications Sig/Cordell Start time Last Medication Dose Route Stop Time Status Admin Albuterol Sulfate 3 ML Q4P PRN 12/17 1930 DC 12/17 INH 1921 Alendronate Sodium 70 MG Larose@0700 12/20 0700 AC 12/20 PO 0612 Amiodarone HCl 400 MG BID 12/20 1100 AC 12/22 PO 1044 Aripiprazole 5 MG DAILY AC 12/18 0700 AC 12/22 PO 0636 Aspirin 81 MG DAILY 12/18 09 AC 12/22 PO 1044 Atorvastatin Calcium 80 MG 1700 12/18 1700 AC 12/22 PO 1749 Calcium/Vitamin D 1 TAB DAILY 12/18 0900 AC 12/22 PO 1044 Cholecalciferol 400 IU DAILY 12/18 09 AC 12/22 PO 1045 Cyproheptadine HCl 4 MG DAILY 12/18 09 AC 12/22 PO 1044 Divalproex Sodium 500 MG DAILY 12/18 09 AC 12/22 PO 1043 Divalproex Sodium 250 MG AT BEDTIME 12/17 2100 AC 12/21 PO 2200 Donepezil HCl 10 MG DAILY 12/18 09 AC 12/22 PO 1043 Erythromycin 1 LILLIAM 4 TIMES/DAY 12/19 1300 AC 12/22 OPH 1749 Furosemide 20 MG DAILY PRN 12/22 0900 AC PO Heparin Sodium 25,000 UNIT Q24H 12/17 2044 AC 12/22 (Porcine) IV 1751 Sodium Chloride 500 ML Levothyroxine Sodium 0.075 MG DAILY AC 12/18 0700 AC 12/22 PO 0636 Metoprolol Tartrate 12.5 MG BID 12/21 2100 AC 12/22 PO 1044 Multivitamins 1 TAB DAILY 12/18 09 AC 12/22 Therapeutic PO 1044 Senna 187 MG AT BEDTIME PRN 12/20 1100 AC PO Trazodone HCl 100 MG QPM 12/17 2100 AC 12/21 PO 2112 Results Last 48 Hrs of Labs/Mics: Laboratory Tests 12/22/17 1330: APTT 87 H 12/22/17 0444: Anion Gap 8, Estimated GFR > 60, Glucose 124 H, Calcium 8.5, Phosphorus 4.1, Magnesium 2.1, Total Bilirubin 0.3, AST 29, ALT 32, Albumin 2.7 L, CBC w Diff MAN DIFF ORDERED, RBC 4.30, MCV 88.4, MCH 29.2, MCHC 33.0, RDW 15.3 H, MPV 9.4, Gran % 79.4 H, Lymphocytes % 7.5 L, Monocytes % 10.6 H, Eosinophils % 2.5, Basophils % 0, Absolute Granulocytes 5.2, Segmented Neutrophils 78 H, Band Neutrophils 2, Absolute Lymphocytes 0.5 L, Lymphocytes 9 L, Monocytes 6, Absolute Monocytes 0.7 H, Eosinophils 3, Absolute Eosinophils 0.2, Basophils 2, Absolute Basophils 0, Platelet Estimate ADEQUATE, Polychromasia 1+, Poikilocytosis 1+, Basophilic Stippling RARE, Ovalocytes 1+, Stomatocytes FEW, Fld Total RBCs Counted 100 12/22/17 0020: APTT 80 H 12/21/17 1345: APTT 48 H 12/21/17 1230: APTT Cancelled 12/21/17 0545: Anion Gap 8, Estimated GFR 60, Glucose 108 H, Calcium 8.6, Phosphorus 2.7, Magnesium 2.0, Total Bilirubin 0.3, AST 32, ALT 31, Albumin 3.0 L, APTT 102 *H, CBC w Diff NO MAN DIFF REQ, RBC 4.32, MCV 87.3, MCH 28.9, MCHC 33.1, RDW 15.0 H , MPV 9.6, Gran % 81.0 H, Lymphocytes % 7.6 L, Monocytes % 10.4 H, Eosinophils % 0.9, Basophils % 0.1, Absolute Granulocytes 5.5, Absolute Lymphocytes 0.5 L, Absolute Monocytes 0.7 H, Absolute Eosinophils 0.1, Absolute Basophils 0 12/20/17 2145: APTT 50 H Assessment/Plan Assessment/Plan Assessment: 1. Aortic stenosis, severe by valve area with gradient in the moderate moderate range 2. Paroxysmal atrial fibrillation 3. Non-ST elevation myocardial infarction 4. Acute diastolic heart failure 5. Paroxysmal SVT with aberrant conduction Plan: * Increase metoprolol to 25 milligrams p.o. b.i.d. * Continue p.o. amiodarone * continue p.o. Lasix * Continue IV heparin Continue telemetry? Yes
[2017-12-23] VITALS: BP 114/55
[2017-12-23 02:33] LABS: ABSOLUTE BASOPHIL COUNT 0 /CUMM (0.0-0.2); ABSOLUTE EOSINOPHIL COUNT 0.2 /CUMM (0.0-0.7); ABSOLUTE GRANULOCYTE CT 5.2 /CUMM (1.4-6.5); ABSOLUTE LYMPH COUNT 0.6 /CUMM (1.2-3.4); ABSOLUTE MONOCYTE COUNT 0.7 /CUMM (0.10-0.60); BASOPHIL % 0.6 % (0.0-2.0); EOSINOPHIL % 3.1 % (0-5); GRANULOCYTE % 76.9 % (42.2-75.2); HEMATOCRIT 34.5 % (37-47); MEAN CORPUSCULAR HGB 29.5 PG (27.0-31.0); MEAN CORPUSCULAR HGB CONC 33.7 G/DL (33.0-37.0); MEAN CORPUSCULAR VOLUME 87.5 FL (81.0-99.0); MEAN PLATELET VOLUME 9.3 FL (7.4-10.4); PLATELET COUNT 176 /CUMM (130-400); RED BLOOD CELL CT 3.94 /CUMM (4.20-5.40); WHITE BLOOD CELL COUNT 6.8 /CUMM (4.8-10.8)
[2017-12-23 02:42] LABS: PTT 90 SEC (25-37)
--- NOTE | 2017-12-23 07:26 | PN- Resident CRCU ---
Petey CHRISTINE,[facility] 12/23/17 0726: Subjective HPI/CRCU Issues: Seen by S/S yesterday and today. Plan for MBS tomorrow. States her L eye is improved. Objective Vital Signs & I&O Last 8 Hrs of Vitals and I&O: Laboratory Tests 12/23/17 0215: Anion Gap 7, Estimated GFR > 60, Glucose 103 H, Calcium 8.5, Phosphorus 3.6, Magnesium 2.0, Total Bilirubin 0.3, AST 37 H, ALT 32, Albumin 2.6 L, APTT 90 H, CBC w Diff NO MAN DIFF REQ, RBC 3.94 L, MCV 87.5, MCH 29.5, MCHC 33.7, RDW 15.0 H, MPV 9.3, Gran % 76.9 H, Lymphocytes % 9.0 L, Monocytes % 10.4 H, Eosinophils % 3.1, Basophils % 0.6, Absolute Granulocytes 5.2, Absolute Lymphocytes 0.6 L, Absolute Monocytes 0.7 H, Absolute Eosinophils 0.2, Absolute Basophils 0 12/22/17 1330: APTT 87 H Vital Signs Date Time Temp Pulse Resp B/P B/P Pulse O2 O2 Flow FiO2 Mean Ox Delivery Rate 12/23 0800 97 Nasal 3.0L Cannula 12/23 0800 97.1 69 18 124/60 97 Nasal 3.0L Cannula 12/23 0000 97 Nasal 3.0L Cannula 12/23 0000 97.8 67 26 114/55 97 Nasal 3.0L Cannula 12/22 2044 74 133/52 12/22 2041 74 133/52 12/22 1722 Nasal 4.0L Cannula 12/22 1600 96 Nasal 4.0L Cannula 12/22 1600 97.8 71 22 130/68 95 Nasal 4.0L Cannula Intake & Output 12/23 1600 12/23 0800 12/23 0000 Intake Total 280 258 Output Total 325 250 Balance -45 8 Intake, IV 180 138 Intake, Oral 100 120 Number 0 0 Bowel Movements Output, Urine 325 250 Patient 145 lb Weight Weight Bed scale Measurement Method Exam General Appearance: no apparent distress, alert, awake, more alert, awake and attentive this morning. Head: tearing eyes b/l. improved L eye conjunctivitis Cardiovascular: regular rate/rhythm, systolic murmur Gastrointestinal: decreased bowel sounds, soft, nontender Extremities: trace lower extremity edema, 2+ radial pulses Current Medications: Current Medications Sig/Cordell Start time Last Medication Dose Route Stop Time Status Admin Alendronate Sodium 70 MG Larose@0700 12/20 07 AC 12/20 PO 0612 Amiodarone HCl 400 MG BID 12/20 1100 AC 12/23 PO 0853 Aripiprazole 5 MG DAILY AC 12/18 0700 AC 12/23 PO 0624 Aspirin 81 MG DAILY 12/18 09 AC 12/23 PO 0853 Atorvastatin Calcium 80 MG 1700 12/18 1700 AC 12/22 PO 1749 Calcium/Vitamin D 1 TAB DAILY 12/18 09 AC 12/23 PO 0853 Cholecalciferol 400 IU DAILY 12/18 09 AC 12/23 PO 0853 Clonazepam 0.5 MG DAILY 12/23 1115 AC PO 12/31 0859 Cyproheptadine HCl 4 MG DAILY 12/18 09 AC 12/23 PO 0852 Divalproex Sodium 500 MG DAILY 12/18 09 AC 12/23 PO 0853 Divalproex Sodium 250 MG AT BEDTIME 12/17 2100 AC 12/22 PO 2042 Donepezil HCl 10 MG DAILY 12/18 09 AC 12/23 PO 0853 Erythromycin 1 LILLIAM 4 TIMES/DAY 12/19 1300 AC 12/23 OPH 0853 Furosemide 20 MG DAILY PRN 12/22 0900 AC PO Heparin Sodium 25,000 UNIT Q24H 12/17 2044 AC 12/22 (Porcine) IV 1751 Sodium Chloride 500 ML Levothyroxine Sodium 0.075 MG DAILY AC 12/18 0700 AC 12/23 PO 0624 Metoprolol Tartrate 12.5 MG BID 12/21 2100 AC 12/23 PO 0852 Multivitamins 1 TAB DAILY 12/18 09 AC 12/23 Therapeutic PO 0853 Senna 187 MG AT BEDTIME PRN 12/20 1100 AC PO Trazodone HCl 100 MG QPM 12/17 2100 AC 12/22 PO 204 Impression/Plan Impression/Problem List Impression: A: 87 year old female with past medical history significant for severe , HLD, bipolar, Graves' disease, Alzheimer dementia, depression, history of breast cancer, hypertension, severe aortic stenosis and recently admitted with altered mental status, hypothyroidism, and right lower extremity cellulitis treated with a course of antibiotics presenting for CHF and found to have hypotension, elevated troponins, and now was resolved new onset atrial fibrillation. P: #CHF in the setting of severe Initial CXR revaeled: Hilar vascular engorgement, early interstitial edema, and trace effusions. Probnp 9520 Last echo July 2017 revealed LVEF >65% with severe Aortic stenosis. Echo: EF >55% with severe Repeat CXR: Mild residual interstitial edema. Improved aeration right lateral lower lungs. -cont lasix po. be careful as patient has severe . BP very sensitive to lasix. -Family at this time does not want any procedures including cath + TAVR #Hypotension most likely due to overdiuresis vs paroxysmal afib Upon admission to the telemetry floor the patient was found to have hypoxia despite 4 L of oxygen. The patient received an extra dose of Lasix. She then became hypotensive 70s/doppler and was given NS bolus 250ml x1. She was also found to be tachycardic. EKG then revealed afib with V3-[address]- depression. Right side precordial EKG done, no ST-segment mirror image but 1-1.[address] elevation on V4-6. Cardiology recommended moving the patient to the ICU for amiodarone drip and an extra dose of 250ml NS bolus. Tylenol was given x1 for mild fever which may have contirbuted to the tachycardia. Blood cx x2 were drawn and lactic acid was draw. The patient returned to NSR around 1:30AM during admission day. She returned to afib 11:50pm on 12/18. 500ml NS bolus and 1 extra dose of amioadorne was given. She converted back to sinus at 2am. On 12/21 the patient had another episode of hypotension in tachycardia ?SVT with aberrancy after her a.m. dose of Lasix. The patient spontaneously converted about an hour later and blood pressure improved spontaneously. -No episodes of tachycardia/A. fib since starting metoprolol. BP stable and improved. HR well controlled in 60s. -Continue amiodarone by mouth -cont heparin drip -cont monitoring vitals #NSTEMI She was then also found to have elevated troponin of 4.5. She was asymptomatic. She received full dose asaparin once and started on IV heparin drip. A statin was also started and beta wesley was held due to her CHF. Troponins trended to 2.38 then peaked to 6.19 -cont conservative management. -cont atorvastatin -cont aspirin #Lethargy/AMS possibly due to new onset of L conjunctivitis and ? aspiration Patient found to be more lethargic than normal during admission. Also found to have L conjunctivitis. Held clonazepam x1 day and her mental status improved. Unclear if her MS improved from holding the benzo or improvement of her conjunctivitis and body becoming assimilated to the betablocker/amiodarone. CT head no acute intracranial territorial infarction or hemorrhage. Moderate diffuse parenchymal volume loss and mild chronic white matter microangiopathy. Severe chronic frontoethmoid sinus disease. -cont erythromycin (12/23 = day 5) and monitor -restarted clonazepam #PVD of RLE? Doplper pulses of b/l feet. Cold RLE -cont to monitor #chronic medical problems: osteopenia, bipolar, Graves' disease, Alzheimer dementia, depression, history of breast cancer, hypertension -cont alendronate, vitamind d, donepezil, depakote, cyproheptadine,levothyroxine , aripprazole, trazodone, -restarted clonazepam #HOUSE KEEPING Chopped mechanical and nectar thick diet Hsieh DNR/DNI Heparin drip Family is ok for central line for pressors if needed Contact Tori (daughter) [phone] Problem List: 1. Afib 2. CHF (congestive heart failure) 3. Elevated troponin 4. Lethargy 5. Conjunctivitis 6. Aortic stenosis Pain Ratin Tomorrow's Labs & Rationales: icu cbc Plan DVT/Prophylaxis: heparin Francisco Cloud MD 12/23/17 1252: Attending MD Review Statement Attending Sign Off Attending Cosign Statement: I have: examined this patient, reviewed avalbl EMR data, personally reviewd images, discussd w/resident/PA/ROVING CAN TENDER, discussed mgmt plan w/nicolasa, discussed mgmt plan w/CM, discussed mgmt plan w/pt, agreed w/resident/PA/ROVING CAN TENDER, amended to note. Other Findings: IFrancisco M.D. have examined this patient, reviewed available EMR data, personally reviewed images, discussed with resident/PA/ROVING CAN TENDER, discussed management plan with housestaff and nursing staff, discussed managment plan all of healthcare providers, discussed management plan with patient and/or family, agreed with resident/PA/ROVING CAN TENDER. The past history and parts of the chart have been autopopulated. Impression 87 year old woman * acute chf likely secondary to severe aortic stenosis with pulmonary edema and acute hypoxemic respiratory failure * new onset a.fib now in sinus rhythm * episode of hypotension, resolved * troponinemia Plan -conjunctivitis - erythromycin ointment -rate control -f/u cardiology -DNR/DNI, family and pt would decline any procedures for the future if every necessary -heparin gtt -amiodarone PO -reduce fio2 to a goal of spo2 >92% DVT prophylaxis at all times DG to telmetry
[2017-12-23 08:00] VITALS: BP 124/60
[2017-12-23 14:53] LABS: PTT 120 SEC (25-37)
--- NOTE | 2017-12-23 15:45 | PN- Cardiology ---
Subjective Subjective: No chest pain. No palpitations. Feeling better. Patient is more alert. Objective Vital Signs and I&Os Vital Signs Date Time Temp Pulse Resp B/P B/P Pulse O2 O2 Flow FiO2 Mean Ox Delivery Rate 12/23 08 97 Nasal 3.0L Cannula 12/23 0800 97.1 69 18 124/60 97 Nasal 3.0L Cannula 12/23 0000 97 Nasal 3.0L Cannula 12/23 0000 97.8 67 26 114/55 97 Nasal 3.0L Cannula 12/224 74 133/52 12/22 2041 74 133/52 12/22 1722 Nasal 4.0L Cannula 12/22 1600 96 Nasal 4.0L Cannula 12/22 1600 97.8 71 22 130/68 95 Nasal 4.0L Cannula Intake & Output 12/23 1600 12/23 0800 12/23 0000 12/22 1600 12/22 0800 12/22 0000 Intake Total 572.8 280 258 576 118 498 Output Total 475 325 250 275 250 300 Balance 97.8 -45 8 301 -132 198 Intake, IV 172.8 180 138 176 118 198 Intake, Oral 400 100 120 400 300 Number 0 0 0 0 Bowel Movements Output, Urine 475 325 250 275 250 300 Patient 145 lb 144 lb Weight Weight Bed scale Bed scale Measurement Method Physical Exam: Gen: The patient is in no acute distress HEENT: Normal nose, ears, and oropharynx. Pupils equal bilaterally. Conjunctiva normal. Neck: Supple with no JVD, no masses, and no thyromegaly Lungs: Scattered rhonchi with normal respiratory effort Heart: RRR, S1, S2, 2 out of 6 systolic murmur. 1+ peripheral edema, 2+ pulses in the lower extremities bilaterally Abdomen: Soft, nontender, no masses. No hepatomegaly. No splenomegaly Extremities: No clubbing or cyanosis. Normal muscle strength in the upper and lower extremities Skin: Normal skin turgor with no skin ulcers or lesions noted. Neuro: Cranial nerves intact. Sensation intact Current Medications: Current Medications Sig/Cordell Start time Last Medication Dose Route Stop Time Status Admin Alendronate Sodium 70 MG Larose@0700 12/20 0700 AC 12/20 PO 0612 Amiodarone HCl 400 MG BID 12/20 1100 AC 12/23 PO 0853 Aripiprazole 5 MG DAILY AC 12/18 07 AC 12/23 PO 0624 Aspirin 81 MG DAILY 12/18 09 AC 12/23 PO 0853 Atorvastatin Calcium 80 MG 1700 12/18 1700 AC 12/22 PO 1749 Calcium/Vitamin D 1 TAB DAILY 12/18 09 AC 12/23 PO 0853 Cholecalciferol 400 IU DAILY 12/18 0900 AC 12/23 PO 0853 Clonazepam 0.5 MG DAILY 12/23 1115 AC PO 12/31 0859 Cyproheptadine HCl 4 MG DAILY 12/18 09 AC 12/23 PO 0852 Divalproex Sodium 500 MG DAILY 12/18 09 AC 12/23 PO 0853 Divalproex Sodium 250 MG AT BEDTIME 12/17 2100 AC 12/22 PO 2042 Donepezil HCl 10 MG DAILY 12/18 09 AC 12/23 PO 0853 Erythromycin 1 LILLIAM 4 TIMES/DAY 12/19 1300 AC 12/23 OPH 1353 Furosemide 20 MG DAILY PRN 12/22 0900 AC PO Heparin Sodium 25,000 UNIT Q24H 12/17 2044 AC 12/22 (Porcine) IV 1751 Sodium Chloride 500 ML Levothyroxine Sodium 0.075 MG DAILY AC 12/18 0700 AC 12/23 PO 0624 Metoprolol Tartrate 12.5 MG BID 12/21 2100 AC 12/23 PO 0852 Multivitamins 1 TAB DAILY 12/18 899 AC 12/23 Therapeutic PO 0853 Senna 187 MG AT BEDTIME PRN 12/20 1100 AC PO Trazodone HCl 100 MG QPM 12/17 2100 AC 12/22 PO 2041 Results Last 48 Hrs of Labs/Mics: Laboratory Tests 12/23/17 1409: APTT 120 *H 12/23/17 0215: Anion Gap 7, Estimated GFR > 60, Glucose 103 H, Calcium 8.5, Phosphorus 3.6, Magnesium 2.0, Total Bilirubin 0.3, AST 37 H, ALT 32, Albumin 2.6 L, APTT 90 H, CBC w Diff NO MAN DIFF REQ, RBC 3.94 L, MCV 87.5, MCH 29.5, MCHC 33.7, RDW 15.0 H, MPV 9.3, Gran % 76.9 H, Lymphocytes % 9.0 L, Monocytes % 10.4 H, Eosinophils % 3.1, Basophils % 0.6, Absolute Granulocytes 5.2, Absolute Lymphocytes 0.6 L, Absolute Monocytes 0.7 H, Absolute Eosinophils 0.2, Absolute Basophils 0 12/22/17 1330: APTT 87 H 12/22/17 0444: Anion Gap 8, Estimated GFR > 60, Glucose 124 H, Calcium 8.5, Phosphorus 4.1, Magnesium 2.1, Total Bilirubin 0.3, AST 29, ALT 32, Albumin 2.7 L, CBC w Diff MAN DIFF ORDERED, RBC 4.30, MCV 88.4, MCH 29.2, MCHC 33.0, RDW 15.3 H, MPV 9.4, Gran % 79.4 H, Lymphocytes % 7.5 L, Monocytes % 10.6 H, Eosinophils % 2.5, Basophils % 0, Absolute Granulocytes 5.2, Segmented Neutrophils 78 H, Band Neutrophils 2, Absolute Lymphocytes 0.5 L, Lymphocytes 9 L, Monocytes 6, Absolute Monocytes 0.7 H, Eosinophils 3, Absolute Eosinophils 0.2, Basophils 2, Absolute Basophils 0, Platelet Estimate ADEQUATE, Polychromasia 1+, Poikilocytosis 1+, Basophilic Stippling RARE, Ovalocytes 1+, Stomatocytes FEW, Fld Total RBCs Counted 100 12/22/17 0020: APTT 80 H Assessment/Plan Assessment/Plan Assessment: 1. Aortic stenosis, severe by valve area with gradient in the moderate moderate range 2. Paroxysmal atrial fibrillation 3. Non-ST elevation myocardial infarction 4. Acute diastolic heart failure 5. Paroxysmal SVT with aberrant conduction Plan: * Continue metoprolol * Continue p.o. amiodarone * continue p.o. Lasix * Continue IV heparin, and change to oral Eliquis prior to discharge * The patient and family prefer conservative management for now, however the may consider cardiac catheterization +/- TAVR in the future. Continue telemetry? Yes
[2017-12-23 16:00] VITALS: BP 160/70
[2017-12-23 23:06] LABS: PTT 58 SEC (25-37)
[2017-12-24] VITALS: BP 123/49
[2017-12-24 05:55] LABS: ABSOLUTE BASOPHIL COUNT 0 /CUMM (0.0-0.2); ABSOLUTE EOSINOPHIL COUNT 0.2 /CUMM (0.0-0.7); ABSOLUTE LYMPH COUNT 0.6 /CUMM (1.2-3.4); ABSOLUTE MONOCYTE COUNT 0.8 /CUMM (0.10-0.60); BASOPHIL % 0.6 % (0.0-2.0); EOSINOPHIL % 2.7 % (0-5); GRANULOCYTE % 75.6 % (42.2-75.2); MEAN CORPUSCULAR HGB 29.3 PG (27.0-31.0); MEAN CORPUSCULAR HGB CONC 33.6 G/DL (33.0-37.0); MEAN CORPUSCULAR VOLUME 87.2 FL (81.0-99.0); MEAN PLATELET VOLUME 9.1 FL (7.4-10.4); PLATELET COUNT 201 /CUMM (130-400); RBC DISTRIBUTION WIDTH 15.3 % (11.5-14.5); RED BLOOD CELL CT 4.35 /CUMM (4.20-5.40); WHITE BLOOD CELL COUNT 6.6 /CUMM (4.8-10.8)
[2017-12-24 06:16] LABS: PTT > 120 SEC (25-37)
--- NOTE | 2017-12-24 07:17 | PN- Resident CRCU ---
Petey CHRISTINE,[facility] 12/24/17 0716: Subjective HPI/CRCU Issues: No acute events overnight. Patient got MBS done today. Currently on chopped and thin liquids. Has no pain. 24 Hour Events: MAXIMUM TEMPERATURE 98.8 Heart rate 6274 RR 1924 BP 899409/4970 In 1360 Out 2700 Objective Vital Signs & I&O Last 8 Hrs of Vitals and I&O: Laboratory Tests 12/24/17 1159: APTT Pending 12/24/17 0539: Anion Gap 9, Estimated GFR > 60, Glucose 95, Calcium 9.0, Phosphorus 4.4, Magnesium 2.2, Total Bilirubin 0.4, AST 34, ALT 36, Albumin 2.9 L, APTT > 120 * H, CBC w Diff MAN DIFF ORDERED, RBC 4.35, MCV 87.2, MCH 29.3, MCHC 33.6, RDW 15.3 H, MPV 9.1, Gran % 75.6 H, Lymphocytes % 8.4 L, Monocytes % 12.7 H, Eosinophils % 2.7, Basophils % 0.6, Absolute Granulocytes 5.0, Segmented Neutrophils 68, Band Neutrophils 6 H, Absolute Lymphocytes 0.6 L, Lymphocytes 10 L, Monocytes 13 H, Absolute Monocytes 0.8 H, Eosinophils 2, Absolute Eosinophils 0.2, Absolute Basophils 0, Metamyelocytes 1, Platelet Estimate ADEQUATE, Polychromasia 1+, Poikilocytosis 1+, Ovalocytes 1+, Stomatocytes FEW, Fld Total RBCs Counted 100 12/23/17 2130: APTT 58 H 12/23/17 1409: APTT 120 *H Vital Signs Date Time Temp Pulse Resp B/P B/P Pulse O2 O2 Flow FiO2 Mean Ox Delivery Rate 12/25 799 98 Nasal 2.0L Cannula 12/25 799 97.9 56 22 134/70 98 Nasal 2.0L Cannula Exam General Appearance: no apparent distress, alert, awake Respiratory: normal breath sounds Cardiovascular: regular rate/rhythm, systolic murmur Gastrointestinal: normal bowel sounds, soft, non-tender Extremities: 1+ lower extremity edema Current Medications: Current Medications Sig/Cordell Start time Last Medication Dose Route Stop Time Status Admin Alendronate Sodium 70 MG Larose@0700 12/20 07 AC 12/20 PO 0612 Amiodarone HCl 200 MG DAILY 12/27 0900 UNVr PO Amiodarone HCl 400 MG BID 12/20 1100 r 12/24 PO 12/27 0600 1139 Apixaban 5 MG BID 12/24 1230 UNVr PO Aripiprazole 5 MG DAILY AC 12/18 0700 AC 12/24 PO 0615 Aspirin 81 MG DAILY 12/18 0900 AC 12/24 PO 1139 Atorvastatin Calcium 80 MG 1700 12/18 1700 AC 12/23 PO 1625 Calcium/Vitamin D 1 TAB DAILY 12/18 0900 AC 12/24 PO 1139 Cholecalciferol 400 IU DAILY 12/18 0900 AC 12/24 PO 1140 Clonazepam 1 MG .STK-MED ONE 12/23 1555 DC PO 12/23 1556 Clonazepam 0.5 MG DAILY 12/23 1115 AC 12/24 PO 12/31 0859 0900 Cyproheptadine HCl 4 MG DAILY 12/18 0900 AC 12/24 PO 0900 Divalproex Sodium 500 MG DAILY 12/18 09 AC 12/24 PO 1139 Divalproex Sodium 250 MG AT BEDTIME 12/17 2100 AC 12/23 PO 2126 Donepezil HCl 10 MG DAILY 12/18 0900 AC 12/24 PO 1139 Erythromycin 1 LILLIAM 4 TIMES/DAY 12/19 1300 AC 12/24 OPH 0900 Furosemide 20 MG DAILY PRN 12/22 0900 AC PO Heparin Sodium 1,974 UNIT BOLUS ONE 12/24 0145 DC 12/24 (Porcine) IV 12/24 0146 0045 Heparin Sodium 5,000 UNIT .STK-MED ONE 12/24 0032 DC (Porcine) IV 12/24 0033 Heparin Sodium 25,000 UNIT Q24H 12/17 2045 DC 12/23 (Porcine) IV 1945 Sodium Chloride 500 ML Levothyroxine Sodium 0.075 MG DAILY AC 12/18 0700 AC 12/24 PO 0615 Metoprolol Tartrate 12.5 MG BID 12/21 2100 AC 12/24 PO 1139 Multivitamins 1 TAB DAILY 12/18 0900 AC 12/24 Therapeutic PO 1139 Senna 187 MG AT BEDTIME PRN 12/20 1100 AC 12/24 PO 1137 Trazodone HCl 100 MG QPM 12/17 2100 AC 12/23 PO 2126 Impression/Plan Impression/Problem List Impression: A: 87 year old female with past medical history significant for severe , HLD, bipolar, Graves' disease, Alzheimer dementia, depression, history of breast cancer, hypertension, severe aortic stenosis and recently admitted with altered mental status, hypothyroidism, and right lower extremity cellulitis treated with a course of antibiotics presenting for CHF and found to have hypotension, elevated troponins, and new paroxysymal atrial fibrillation. P: #CHF in the setting of severe Initial CXR revaeled: Hilar vascular engorgement, early interstitial edema, and trace effusions. Probnp 9520 Last echo July 2017 revealed LVEF >65% with severe Aortic stenosis. Echo: EF >55% with severe Repeat CXR: Mild residual interstitial edema. Improved aeration right lateral lower lungs. -cont lasix po. be careful as patient has severe . BP very sensitive to lasix. -Family at this time does not want any procedures including cath + TAVR #Hypotension most likely due to overdiuresis vs new paroxysmal afib Upon admission to the telemetry floor the patient was found to have hypoxia despite 4 L of oxygen. The patient received an extra dose of Lasix. She then became hypotensive 70s/doppler and was given NS bolus 250ml x1. She was also found to be tachycardic. EKG then revealed afib with V3-[address]- depression. Right side precordial EKG done, no ST-segment mirror image but 1-1.[address] elevation on V4-6. Cardiology recommended moving the patient to the ICU for amiodarone drip and an extra dose of 250ml NS bolus. Tylenol was given x1 for mild fever which may have contirbuted to the tachycardia. Blood cx x2 were drawn and lactic acid was draw. The patient returned to NSR around 1:30AM during admission day. She returned to afib 11:50pm on 12/18. 500ml NS bolus and 1 extra dose of amioadorne was given. She converted back to sinus at 2am. On 12/21 the patient had another episode of hypotension in tachycardia ?SVT with aberrancy after her a.m. dose of Lasix. The patient spontaneously converted about an hour later and blood pressure improved spontaneously. -No episodes of tachycardia/A. fib since starting metoprolol. BP stable and improved. HR well controlled in 60s. -Continue amiodarone by mouth. decrease to 200mg daily on 12/27 -Switch from heparin drip to Eliquis -cont monitoring vitals #NSTEMI She was then also found to have elevated troponin of 4.5. She was asymptomatic. She received full dose asaparin once and started on IV heparin drip. A statin was also started and beta wesley was held due to her CHF. Troponins trended to 2.38 then peaked to 6.19 -cont conservative management. -cont atorvastatin -cont aspirin #Lethargy/AMS possibly due to new onset of L conjunctivitis Patient found to be more lethargic than normal during admission. Also found to have L conjunctivitis. Held clonazepam x1 day and her mental status improved. Unclear if her MS improved from holding the benzo or improvement of her conjunctivitis and body becoming assimilated to the betablocker/amiodarone. CT head no acute intracranial territorial infarction or hemorrhage. Moderate diffuse parenchymal volume loss and mild chronic white matter microangiopathy. Severe chronic frontoethmoid sinus disease. -cont erythromycin (12/23 = day 6) and monitor -cont clonazepam #PVD of RLE? Doppler pulses of b/l feet. Cold RLE -cont to monitor #chronic medical problems: osteopenia, bipolar, Graves' disease, Alzheimer dementia, depression, history of breast cancer, hypertension -cont alendronate, vitamind d, donepezil, depakote, cyproheptadine,levothyroxine , aripprazole, trazodone, -restarted clonazepam #HOUSE KEEPING Chopped mechanical and thin diet Hsieh DNR/DNI Heparin drip is going to be dc'ed Family is ok for central line for pressors if needed Contact Tori (daughter) [phone] Problem List: 1. Conjunctivitis 2. Lethargy 3. Afib 4. CHF (congestive heart failure) Pain Ratin Tomorrow's Labs & Rationales: cbc icu Plan DVT/Prophylaxis: heparin drFrancisco Gomez MD 12/24/17 1008: Attending MD Review Statement Attending Sign Off Attending Cosign Statement: I have: examined this patient, reviewed aval EMR data, personally reviewd images, discussd w/resident/PA/PHARMACY SALES ASSISTANT, discussed mgmt plan w/nicolasa, discussed mgmt plan w/CM, discussed mgmt plan w/pt, agreed w/resident/PA/PHARMACY SALES ASSISTANT, amended to note. Other Findings: Francisco Tellez M.D. have examined this patient, reviewed available EMR data, personally reviewed images, discussed with resident/PA/PHARMACY SALES ASSISTANT, discussed management plan with housestaff and nursing staff, discussed managment plan all of healthcare providers, discussed management plan with patient and/or family, agreed with resident/PA/PHARMACY SALES ASSISTANT. The past history and parts of the chart have been autopopulated. Impression 87 year old woman * acute chf likely secondary to severe aortic stenosis with pulmonary edema and acute hypoxemic respiratory failure * new onset a.fib now in sinus rhythm * episode of hypotension, resolved * troponinemia Plan -erythromycin ointment for recent improved conjunctivitis -rate control -f/u cardiology -DNR/DNI, family and pt would decline any procedures for the future if every necessary -heparin gtt -amiodarone PO -reduce fio2 to a goal of spo2 >92% DVT prophylaxis at all times awaiting DG to telmetry
[2017-12-24 08:00] VITALS: BP 134/70
--- NOTE | 2017-12-24 10:02 | PN- Cardiology ---
Subjective Subjective: No chest pain. No palpitations. No diaphoresis. Shortness of breath is improving Objective Vital Signs and I&Os Vital Signs Date Time Temp Pulse Resp B/P B/P Pulse O2 O2 Flow FiO2 Mean Ox Delivery Rate 12/24 0000 93 Nasal 2.0L Cannula 12/24 0000 97.2 62 19 123/49 93 Nasal 2.0L Cannula 12/23 2125 71 132/70 12/235 71 132/70 12/23 1600 93 Nasal 2.0L Cannula 12/23 1600 98.8 74 20 160/70 93 Nasal 2.0L Cannula Intake & Output 12/24 1600 12/24 0800 12/24 0000 12/23 1600 12/23 0800 12/23 0000 Intake Total 154 508 572.8 280 258 Output Total 300 1900 475 325 250 Balance -146 -1392 97.8 -45 8 Intake, IV 104 268 172.8 180 138 Intake, Oral 50 240 400 100 120 Number 0 1 0 0 Bowel Movements Output, Urine 300 1900 475 325 250 Patient 144 lb 145 lb Weight Weight Bed scale Bed scale Measurement Method Physical Exam: Gen: The patient is in no acute distress HEENT: Normal nose, ears, and oropharynx. Pupils equal bilaterally. Conjunctiva normal. Neck: Supple with no JVD, no masses, and no thyromegaly Lungs: Scattered rhonchi with normal respiratory effort Heart: RRR, S1, S2, 2 out of 6 systolic murmur. 1+ peripheral edema, 2+ pulses in the lower extremities bilaterally Abdomen: Soft, nontender, no masses. No hepatomegaly. No splenomegaly Extremities: No clubbing or cyanosis. Normal muscle strength in the upper and lower extremities Skin: Normal skin turgor with no skin ulcers or lesions noted. Neuro: Cranial nerves intact. Sensation intact Current Medications: Current Medications Sig/Cordell Start time Last Medication Dose Route Stop Time Status Admin Alendronate Sodium 70 MG Larose@0700 12/20 07 AC 12/20 PO 0612 Amiodarone HCl 400 MG BID 12/20 1100 AC 12/23 PO 2126 Aripiprazole 5 MG DAILY AC 12/18 07 AC 12/24 PO 0615 Aspirin 81 MG DAILY 12/18 09 AC 12/23 PO 0853 Atorvastatin Calcium 80 MG 1700 12/18 1700 AC 12/23 PO 1625 Calcium/Vitamin D 1 TAB DAILY 12/18 09 AC 12/23 PO 0853 Cholecalciferol 400 IU DAILY 12/18 0900 AC 12/23 PO 0853 Clonazepam 1 MG .STK-MED ONE 12/23 1555 DC PO 12/23 1556 Clonazepam 0.5 MG DAILY 12/23 1115 AC 12/23 PO 12/31 0859 1626 Cyproheptadine HCl 4 MG DAILY 12/18 09 AC 12/23 PO 0852 Divalproex Sodium 500 MG DAILY 12/18 09 AC 12/23 PO 0853 Divalproex Sodium 250 MG AT BEDTIME 12/17 2100 AC 12/23 PO 212 Donepezil HCl 10 MG DAILY 12/18 09 AC 12/23 PO 0853 Erythromycin 1 LILLIAM 4 TIMES/DAY 12/19 1300 AC 12/23 OPH 2125 Furosemide 20 MG DAILY PRN 12/22 0900 AC PO Heparin Sodium 1,974 UNIT BOLUS ONE 12/24 0145 DC 12/24 (Porcine) IV 12/24 0146 0045 Heparin Sodium 5,000 UNIT .STK-MED ONE 12/24 0032 DC (Porcine) IV 12/24 0033 Heparin Sodium 25,000 UNIT Q24H 12/17 2044 AC 12/23 (Porcine) IV 1945 Sodium Chloride 500 ML Levothyroxine Sodium 0.075 MG DAILY AC 12/18 07 AC 12/24 PO 0615 Metoprolol Tartrate 12.5 MG BID 12/21 2099 AC 12/23 PO 212 Multivitamins 1 TAB DAILY 12/18 09 AC 12/23 Therapeutic PO 0853 Senna 187 MG AT BEDTIME PRN 12/20 1100 AC PO Trazodone HCl 100 MG QPM 12/17 2099 AC 12/23 PO 2125 Results Last 48 Hrs of Labs/Mics: Laboratory Tests 12/24/17 0539: Anion Gap 9, Estimated GFR > 60, Glucose 95, Calcium 9.0, Phosphorus 4.4, Magnesium 2.2, Total Bilirubin 0.4, AST 34, ALT 36, Albumin 2.9 L, APTT > 120 * H, CBC w Diff MAN DIFF ORDERED, RBC 4.35, MCV 87.2, MCH 29.3, MCHC 33.6, RDW 15.3 H, MPV 9.1, Gran % 75.6 H, Lymphocytes % 8.4 L, Monocytes % 12.7 H, Eosinophils % 2.7, Basophils % 0.6, Absolute Granulocytes 5.0, Segmented Neutrophils 68, Band Neutrophils 6 H, Absolute Lymphocytes 0.6 L, Lymphocytes 10 L, Monocytes 13 H, Absolute Monocytes 0.8 H, Eosinophils 2, Absolute Eosinophils 0.2, Absolute Basophils 0, Metamyelocytes 1, Platelet Estimate ADEQUATE, Polychromasia 1+, Poikilocytosis 1+, Ovalocytes 1+, Stomatocytes FEW, Fld Total RBCs Counted 100 12/23/17 2130: APTT 58 H 12/23/17 1409: APTT 120 *H 12/23/17 0215: Anion Gap 7, Estimated GFR > 60, Glucose 103 H, Calcium 8.5, Phosphorus 3.6, Magnesium 2.0, Total Bilirubin 0.3, AST 37 H, ALT 32, Albumin 2.6 L, APTT 90 H, CBC w Diff NO MAN DIFF REQ, RBC 3.94 L, MCV 87.5, MCH 29.5, MCHC 33.7, RDW 15.0 H, MPV 9.3, Gran % 76.9 H, Lymphocytes % 9.0 L, Monocytes % 10.4 H, Eosinophils % 3.1, Basophils % 0.6, Absolute Granulocytes 5.2, Absolute Lymphocytes 0.6 L, Absolute Monocytes 0.7 H, Absolute Eosinophils 0.2, Absolute Basophils 0 12/22/17 1330: APTT 87 H Assessment/Plan Assessment/Plan Assessment: 1. Aortic stenosis, severe by valve area with gradient in the moderate moderate range 2. Paroxysmal atrial fibrillation 3. Non-ST elevation myocardial infarction 4. Acute diastolic heart failure 5. Paroxysmal SVT with aberrant conduction Plan: * Continue metoprolol * Continue p.o. amiodarone. Decrease dose to 200 mg daily on 12/27 * continue p.o. Lasix * Start Eliquis 5 mg p.o. twice daily. Discontinue heparin with first dose of Eliquis. * The patient and family prefer conservative management for now, however the may consider cardiac catheterization +/- TAVR in the future. Continue telemetry? Yes
[2017-12-24 14:08] LABS: PTT 70 SEC (25-37)
--- NOTE | 2017-12-24 14:24 | RADIOLOGY REPORT ---
EXAMINATION: XR MODIFIED BARIUM SWALLOW CLINICAL INFORMATION: Dysphagia. COMPARISON: None. TECHNIQUE: A modified barium swallow was performed with speech pathologist in attendance. Pur?e, honey thick, nectar thick, thin, bread, and cracker consistencies were given to the patient and the swallowing mechanism was observed fluoroscopically with several spot films taken using the last image hold feature. FLUOROSCOPY TIME: 1 minute 35 seconds. FINDINGS: With all consistencies, the oropharyngeal phase of swallowing is normal with no laryngeal or nasopharyngeal aspiration seen. There is some pooling of contrast seen within the vallecula with all consistencies. IMPRESSION: Pooling of contrast in the vallecula. Otherwise unremarkable exam. Speech pathologist assessment issued separately.
[2017-12-24 16:00] VITALS: BP 110/70
[2017-12-24 23:00] VITALS: BP 98/60
[2017-12-25 04:27] LABS: ABSOLUTE BASOPHIL COUNT 0 /CUMM (0.0-0.2); ABSOLUTE EOSINOPHIL COUNT 0.2 /CUMM (0.0-0.7); ABSOLUTE LYMPH COUNT 0.6 /CUMM (1.2-3.4); ABSOLUTE MONOCYTE COUNT 0.9 /CUMM (0.10-0.60); BASOPHIL % 0 % (0.0-2.0); EOSINOPHIL % 2.5 % (0-5); GRANULOCYTE % 75.8 % (42.2-75.2); HEMATOCRIT 38.1 % (37-47); MEAN CORPUSCULAR VOLUME 87.9 FL (81.0-99.0); MEAN PLATELET VOLUME 9.8 FL (7.4-10.4); PLATELET COUNT 203 /CUMM (130-400); RBC DISTRIBUTION WIDTH 15.3 % (11.5-14.5); RED BLOOD CELL CT 4.34 /CUMM (4.20-5.40); WHITE BLOOD CELL COUNT 6.7 /CUMM (4.8-10.8)
[2017-12-25 07:00] VITALS: BP 110/60
--- NOTE | 2017-12-25 07:59 | PN- Resident CRCU ---
Petey CHRISTINE,[facility] 12/25/17 0759: Subjective HPI/CRCU Issues: T-98.0 HR 58-68 Blood pressure 84671/6064 9092 percent oxygen saturation 2 L 24 Hour Events: No acute events overnight. Patient is asking about a pot which does not exist in the room. Has no pain. Objective Vital Signs & I&O Last 8 Hrs of Vitals and I&O: Laboratory Tests 12/25/17 0334: Anion Gap 9, Estimated GFR 60, Glucose 96, Calcium 8.7, Phosphorus 3.9, Magnesium 2.1, Total Bilirubin 0.4, AST 31, ALT 33, Albumin 2.7 L, CBC w Diff MAN DIFF ORDERED, RBC 4.34, MCV 87.9, MCH 29.0, MCHC 33.0, RDW 15.3 H, MPV 9.8, Gran % 75.8 H, Lymphocytes % 8.5 L, Monocytes % 13.2 H, Eosinophils % 2.5, Basophils % 0, Absolute Granulocytes 5.0, Segmented Neutrophils 73, Band Neutrophils 8 H, Absolute Lymphocytes 0.6 L, Lymphocytes 6 L, Monocytes 10 H , Absolute Monocytes 0.9 H, Absolute Eosinophils 0.2, Basophils 1, Absolute Basophils 0, Metamyelocytes 2 H, Platelet Estimate ADEQUATE, Polychromasia 1+, Poikilocytosis 1+, Basophilic Stippling SLIGHT, Ovalocytes 1+, Fld Total RBCs Counted 100 12/24/17 1159: APTT 70 H Vital Signs Date Time Temp Pulse Resp B/P B/P Pulse O2 O2 Flow FiO2 Mean Ox Delivery Rate 12/25 0900 110/60 12/25 0859 110/60 12/25 0700 98.0 64 18 110/60 98 Room Air Intake & Output 12/25 1600 Intake Total 280 Output Total Balance 280 Intake, Oral 280 Number 1 Bowel Movements Intake & Output 12/25 1600 Intake Total 280 Output Total Balance 280 Intake, Oral 280 Number 1 Bowel Movements Exam General Appearance: no apparent distress, alert, awake Respiratory: normal breath sounds Cardiovascular: systolic murmur Gastrointestinal: normal bowel sounds, soft, non-tender Extremities: 2+ radial pulses, 1+ LLE edema Current Medications: Current Medications Sig/Cordell Start time Last Medication Dose Route Stop Time Status Admin Alendronate Sodium 70 MG Larose@0700 12/20 0700 AC 12/20 PO 0612 Amiodarone HCl 200 MG DAILY 12/27 0900 AC PO Amiodarone HCl 400 MG BID 12/20 1100 AC 12/25 PO 12/27 0600 0900 Apixaban 5 MG BID 12/24 1230 AC 12/25 PO 0859 Aripiprazole 5 MG DAILY AC 12/18 0700 AC 12/25 PO 0552 Aspirin 81 MG DAILY 12/18 09 AC 12/25 PO 0900 Atorvastatin Calcium 80 MG 1700 12/18 1700 AC 12/24 PO 1703 Calcium/Vitamin D 1 TAB DAILY 12/18 09 AC 12/25 PO 0900 Cholecalciferol 400 IU DAILY 12/18 09 AC 12/25 PO 0900 Clonazepam 0.5 MG DAILY 12/23 1115 AC 12/25 PO 12/31 0859 0859 Cyproheptadine HCl 4 MG DAILY 12/18 09 AC 12/25 PO 0900 Divalproex Sodium 500 MG DAILY 12/18 09 AC 12/25 PO 0900 Divalproex Sodium 250 MG AT BEDTIME 12/17 2100 AC 12/24 PO 2019 Donepezil HCl 10 MG DAILY 12/18 09 AC 12/25 PO 0859 Erythromycin 1 LILLIAM 4 TIMES/DAY 12/19 1300 AC 12/25 OPH 0900 Furosemide 20 MG DAILY PRN 12/22 09 AC PO Heparin Sodium 25,000 UNIT Q24H 12/17 2044 DC 12/23 (Porcine) IV 1945 Sodium Chloride 500 ML Levothyroxine Sodium 0.075 MG DAILY AC 12/18 0700 AC 12/25 PO 0552 Metoprolol Tartrate 12.5 MG BID 12/21 2100 AC 12/25 PO 0859 Multivitamins 1 TAB DAILY 12/18 09 AC 12/25 Therapeutic PO 0900 Senna 187 MG AT BEDTIME PRN 12/20 1100 AC 12/24 PO 1137 Trazodone HCl 100 MG QPM 12/17 2100 AC 12/24 PO 2019 Impression/Plan Impression/Problem List Impression: A: 87 year old female with past medical history significant for severe , HLD, bipolar, Graves' disease, Alzheimer dementia, depression, history of breast cancer, hypertension, severe aortic stenosis and recently admitted with altered mental status, hypothyroidism, and right lower extremity cellulitis treated with a course of antibiotics presenting for CHF and found to have hypotension, elevated troponins, and new paroxysymal atrial fibrillation. P: #CHF with pulmonary edema and acute hypoxemic respiratory failure in the setting of severe Initial CXR revaeled: Hilar vascular engorgement, early interstitial edema, and trace effusions. Probnp 9520 Last echo July 2017 revealed LVEF >65% with severe Aortic stenosis. Echo: EF >55% with severe Repeat CXR: Mild residual interstitial edema. Improved aeration right lateral lower lungs. -cont lasix po. be careful as patient has severe . BP very sensitive to lasix. -Family at this time does not want any procedures including cath + TAVR #Hypotension most likely due to overdiuresis and new paroxysmal afib Upon admission to the telemetry floor the patient was found to have hypoxia despite 4 L of oxygen. The patient received an extra dose of Lasix. She then became hypotensive 70s/doppler and was given NS bolus 250ml x1. She was also found to be tachycardic. EKG then revealed afib with V3-[address]- depression. Right side precordial EKG done, no ST-segment mirror image but 1-1.[address] elevation on V4-6. Cardiology recommended moving the patient to the ICU for amiodarone drip and an extra dose of 250ml NS bolus. Tylenol was given x1 for mild fever which may have contirbuted to the tachycardia. Blood cx x2 were drawn and lactic acid was draw. The patient returned to NSR around 1:30AM during admission day. She returned to afib 11:50pm on 12/18. 500ml NS bolus and 1 extra dose of amioadorne was given. She converted back to sinus at 2am. On 12/21 the patient had another episode of hypotension in tachycardia ?SVT with aberrancy after her a.m. dose of Lasix. The patient spontaneously converted about an hour later and blood pressure improved spontaneously. -No episodes of tachycardia/A. fib since starting metoprolol. BP stable and improved. HR well controlled in 60s. -Continue amiodarone by mouth. decrease to 200mg daily on 12/27 -Switched from heparin drip to Eliquis -cont monitoring vitals #NSTEMI Also found to have elevated troponin of 4.5. She was asymptomatic. She received full dose asapirin once and started on IV heparin drip. A statin was also started and beta wesley was held due to her CHF. Troponins trended to 2.38 then peaked to 6.19 -cont conservative management. -cont atorvastatin -cont aspirin #Lethargy/AMS possibly due to new onset of L conjunctivitis Patient found to be more lethargic than normal during admission. Also found to have L conjunctivitis. Held clonazepam x1 day and her mental status improved. Unclear if her MS improved from holding the benzo or improvement of her conjunctivitis and body becoming assimilated to the betablocker/amiodarone. She has remained more alert despite restarting the clonazepam. CT head no acute intracranial territorial infarction or hemorrhage. Moderate diffuse parenchymal volume loss and mild chronic white matter microangiopathy. Severe chronic frontoethmoid sinus disease. -L conjunctivitis has improved. will dc erythromycin -cont clonazepam #PVD of RLE? Doppler pulses of b/l feet. Cold RLE -cont to monitor #chronic medical problems: osteopenia, bipolar, Graves' disease, Alzheimer dementia, depression, history of breast cancer, hypertension -cont alendronate, vitamind d, donepezil, depakote, cyproheptadine,levothyroxine , aripprazole, trazodone, clonazepam Chopped mechanical and thin diet Jori DNR/DNI Contact Tori (daughter) [phone] Problem List: 1. Afib 2. CHF (congestive heart failure) Pain Ratin Tomorrow's Labs & Rationales: icu cbc Plan DVT/Prophylaxis: Francisco Castillo MD 12/25/17 1243: Attending MD Review Statement Attending Sign Off Attending Cosign Statement: I have: examined this patient, reviewed avalbl EMR data, personally reviewd images, discussd w/resident/PA/CONCRETE [employer]EMENT INSTALLER, discussed mgmt plan w/nicolasa, discussed mgmt plan w/CM, discussed mgmt plan w/pt, agreed w/resident/PA/CONCRETE PAVEMENT INSTALLER, amended to note. Other Findings: IFrancisco M.D. have examined this patient, reviewed available EMR data, personally reviewed images, discussed with resident/PA/CONCRETE PAVEMENT INSTALLER, discussed management plan with housestaff and nursing staff, discussed managment plan all of healthcare providers, discussed management plan with patient and/or family, agreed with resident/PA/CONCRETE PAVEMENT INSTALLER. The past history and parts of the chart have been autopopulated. Impression 87 year old woman * acute chf likely secondary to severe aortic stenosis with pulmonary edema and acute hypoxemic respiratory failure * new onset a.fib now in sinus rhythm * episode of hypotension, resolved * troponinemia Plan -rate control -f/u cardiology -DNR/DNI, family and pt would decline any procedures for the future if every necessary -a/c -amiodarone PO -reduce fio2 to a goal of spo2 >92% DVT prophylaxis at all times awaiting DG to telmetry
--- NOTE | 2017-12-25 12:40 | PN- Cardiology ---
Subjective Subjective: No chest pain. No shortness of breath. No palpitations. No diaphoresis Objective Vital Signs and I&Os Vital Signs Date Time Temp Pulse Resp B/P B/P Pulse O2 O2 Flow FiO2 Mean Ox Delivery Rate 12/25 0900 110/60 12/25 0859 110/60 12/25 0800 98 Nasal 2.0L Cannula 12/25 0700 98.0 64 18 110/60 98 Room Air 12/25 0000 93 Nasal 2.0L Cannula 12/24 2300 98.0 58 14 98/60 93 Nasal 2.0L Cannula 12/24 202 68 129/64 12/24 202 68 129/64 12/24 1600 96 Nasal 2.0L Cannula 12/24 1600 96.9 100 18 110/70 96 Nasal 2.0L Cannula Intake & Output 12/25 0800 12/25 0000 12/24 1600 12/24 0800 12/24 0000 Intake Total 280 120 240 720 154 508 Output Total 200 400 777 281 2337 Balance 280 -80 -160 370 -146 -1392 Intake, IV 120 104 268 Intake, Oral 280 120 240 600 50 240 Number 1 1 0 0 0 1 Bowel Movements Output, Urine 200 400 660 083 [id number] Patient 143 lb 144 lb Weight Weight Bed scale Measurement Method Physical Exam: Gen: The patient is in no acute distress HEENT: Normal nose, ears, and oropharynx. Pupils equal bilaterally. Conjunctiva normal. Neck: Supple with no JVD, no masses, and no thyromegaly Lungs: Scattered rhonchi with normal respiratory effort Heart: RRR, S1, S2, 2/6 systolic murmur. 1+ peripheral edema, 2+ pulses in the lower extremities bilaterally Abdomen: Soft, nontender, no masses. No hepatomegaly. No splenomegaly Extremities: No clubbing or cyanosis. Normal muscle strength in the upper and lower extremities Skin: Normal skin turgor with no skin ulcers or lesions noted. Neuro: Cranial nerves intact. Sensation intact Current Medications: Current Medications Sig/Cordell Start time Last Medication Dose Route Stop Time Status Admin Alendronate Sodium 70 MG Larose@0700 12/20 0700 AC 12/20 PO 0612 Amiodarone HCl 200 MG DAILY 12/27 0900 AC PO Amiodarone HCl 400 MG BID 12/20 1100 AC 12/25 PO 12/27 599 0900 Apixaban 5 MG BID 12/24 1230 AC 12/25 PO 0859 Aripiprazole 5 MG DAILY AC 12/18 0700 AC 12/25 PO 0552 Aspirin 81 MG DAILY 12/18 0900 AC 12/25 PO 0900 Atorvastatin Calcium 80 MG 1700 12/18 1700 AC 12/24 PO 1703 Calcium/Vitamin D 1 TAB DAILY 12/18 0900 AC 12/25 PO 0900 Cholecalciferol 400 IU DAILY 12/18 09 AC 12/25 PO 0900 Clonazepam 0.5 MG DAILY 12/23 1115 AC 12/25 PO 12/31 0859 0859 Cyproheptadine HCl 4 MG DAILY 12/18 09 AC 12/25 PO 0900 Divalproex Sodium 500 MG DAILY 12/18 09 AC 12/25 PO 0900 Divalproex Sodium 250 MG AT BEDTIME 12/17 2100 AC 12/24 PO 2019 Donepezil HCl 10 MG DAILY 12/18 09 AC 12/25 PO 0859 Erythromycin 1 LILLIAM 4 TIMES/DAY 12/19 1300 AC 12/25 OPH 0900 Furosemide 20 MG DAILY PRN 12/22 0900 AC PO Levothyroxine Sodium 0.075 MG DAILY AC 12/18 07 AC 12/25 PO 0552 Metoprolol Tartrate 12.5 MG BID 12/21 2100 AC 12/25 PO 0859 Multivitamins 1 TAB DAILY 12/18 899 AC 12/25 Therapeutic PO 0900 Senna 187 MG AT BEDTIME PRN 12/20 1100 AC 12/24 PO 1137 Trazodone HCl 100 MG QPM 12/17 2100 AC 12/24 PO 2019 Results Last 48 Hrs of Labs/Mics: Laboratory Tests 12/25/17 0334: Anion Gap 9, Estimated GFR 60, Glucose 96, Calcium 8.7, Phosphorus 3.9, Magnesium 2.1, Total Bilirubin 0.4, AST 31, ALT 33, Albumin 2.7 L, CBC w Diff MAN DIFF ORDERED, RBC 4.34, MCV 87.9, MCH 29.0, MCHC 33.0, RDW 15.3 H, MPV 9.8, Gran % 75.8 H, Lymphocytes % 8.5 L, Monocytes % 13.2 H, Eosinophils % 2.5, Basophils % 0, Absolute Granulocytes 5.0, Segmented Neutrophils 73, Band Neutrophils 8 H, Absolute Lymphocytes 0.6 L, Lymphocytes 6 L, Monocytes 10 H , Absolute Monocytes 0.9 H, Absolute Eosinophils 0.2, Basophils 1, Absolute Basophils 0, Metamyelocytes 2 H, Platelet Estimate ADEQUATE, Polychromasia 1+, Poikilocytosis 1+, Basophilic Stippling SLIGHT, Ovalocytes 1+, Fld Total RBCs Counted 100 12/24/17 1159: APTT 70 H 12/24/17 0539: Anion Gap 9, Estimated GFR > 60, Glucose 95, Calcium 9.0, Phosphorus 4.4, Magnesium 2.2, Total Bilirubin 0.4, AST 34, ALT 36, Albumin 2.9 L, APTT > 120 * H, CBC w Diff MAN DIFF ORDERED, RBC 4.35, MCV 87.2, MCH 29.3, MCHC 33.6, RDW 15.3 H, MPV 9.1, Gran % 75.6 H, Lymphocytes % 8.4 L, Monocytes % 12.7 H, Eosinophils % 2.7, Basophils % 0.6, Absolute Granulocytes 5.0, Segmented Neutrophils 68, Band Neutrophils 6 H, Absolute Lymphocytes 0.6 L, Lymphocytes 10 L, Monocytes 13 H, Absolute Monocytes 0.8 H, Eosinophils 2, Absolute Eosinophils 0.2, Absolute Basophils 0, Metamyelocytes 1, Platelet Estimate ADEQUATE, Polychromasia 1+, Poikilocytosis 1+, Ovalocytes 1+, Stomatocytes FEW, Fld Total RBCs Counted 100 12/23/17 2130: APTT 58 H 12/23/17 1409: APTT 120 *H Assessment/Plan Assessment/Plan Assessment: 1. Aortic stenosis, severe by valve area with gradient in the moderate moderate range 2. Paroxysmal atrial fibrillation 3. Non-ST elevation myocardial infarction 4. Acute diastolic heart failure 5. Paroxysmal SVT with aberrant conduction Plan: * Continue metoprolol * Continue p.o. amiodarone. Decrease dose to 200 mg daily on 12/27 * continue p.o. Lasix * Continue p.o. Lasix. * Plan of care discussed with the patient and her . The patient and family wish to pursue conservative medical management only. The patient declines cardiac catheterization, TAVR, and other invasive procedures. Continue telemetry? Yes
[2017-12-25 14:42] VITALS: BP 112/56
[2017-12-26] VITALS: BP 118/62
[2017-12-26 06:39] LABS: ABSOLUTE BASOPHIL COUNT 0 /CUMM (0.0-0.2); ABSOLUTE EOSINOPHIL COUNT 0.1 /CUMM (0.0-0.7); ABSOLUTE GRANULOCYTE CT 5.3 /CUMM (1.4-6.5); ABSOLUTE LYMPH COUNT 0.6 /CUMM (1.2-3.4); ABSOLUTE MONOCYTE COUNT 0.9 /CUMM (0.10-0.60); BASOPHIL % 0.2 % (0.0-2.0); EOSINOPHIL % 1.8 % (0-5); GRANULOCYTE % 76.7 % (42.2-75.2); HEMATOCRIT 36.9 % (37-47); MEAN CORPUSCULAR VOLUME 87.7 FL (81.0-99.0); MEAN PLATELET VOLUME 8.8 FL (7.4-10.4); PLATELET COUNT 191 /CUMM (130-400); RBC DISTRIBUTION WIDTH 15.2 % (11.5-14.5); RED BLOOD CELL CT 4.21 /CUMM (4.20-5.40)
[2017-12-26 08:00] VITALS: BP 98/52
--- NOTE | 2017-12-26 08:16 | PN- Resident CRCU ---
Petey CHRISTINE,[facility] 12/26/17 0816: Subjective HPI/CRCU Issues: No acute events overnight. Continues to be alert in the AM despite several days of klonopin. Appears that the klonopin is not causing her previous lethargy. Objective Vital Signs & I&O Last 8 Hrs of Vitals and I&O: Laboratory Tests 12/26/17 0605: Anion Gap 9, Estimated GFR 60, Glucose 95, Calcium 8.5, Phosphorus 4.2, Magnesium 2.1, Total Bilirubin 0.4, AST 37 H, ALT 38, Albumin 2.6 L, CBC w Diff NO MAN DIFF REQ, RBC 4.21, MCV 87.7, MCH 29.0, MCHC 33.0, RDW 15.2 H, MPV 8.8, Gran % 76.7 H, Lymphocytes % 8.2 L, Monocytes % 13.1 H, Eosinophils % 1.8, Basophils % 0.2, Absolute Granulocytes 5.3, Absolute Lymphocytes 0.6 L, Absolute Monocytes 0.9 H, Absolute Eosinophils 0.1, Absolute Basophils 0 Intake & Output 12/26 1600 Intake Total 600 Output Total 725 Balance -125 Intake, IV 0 Intake, Oral 600 Number 0 Bowel Movements Output, Urine 725 Intake & Output 12/26 1600 Intake Total 600 Output Total 725 Balance -125 Intake, IV 0 Intake, Oral 600 Number 0 Bowel Movements Output, Urine 725 Exam General Appearance: no apparent distress, alert, awake Respiratory: normal breath sounds Cardiovascular: systolic murmur Gastrointestinal: normal bowel sounds, soft, non-tender Extremities: 1+ LE edema, 2+ radial pulses Current Medications: Current Medications Sig/Cordell Start time Last Medication Dose Route Stop Time Status Admin Alendronate Sodium 70 MG Larose@0700 12/20 07 AC 12/20 PO 0612 Amiodarone HCl 200 MG DAILY 12/27 0900 AC PO Amiodarone HCl 400 MG BID 12/20 1100 AC 12/26 PO 12/27 06 0825 Apixaban 5 MG BID 12/24 1230 AC 12/26 PO 0825 Aripiprazole 5 MG DAILY AC 12/18 0700 AC 12/26 PO 0616 Aspirin 81 MG DAILY 12/18 0900 AC 12/26 PO 0824 Atorvastatin Calcium 80 MG 1700 12/18 1700 AC 12/25 PO 1635 Calcium/Vitamin D 1 TAB DAILY 12/18 899 AC 12/26 PO 0824 Cholecalciferol 400 IU DAILY 12/18 899 AC 12/26 PO 0826 Clonazepam 0.5 MG DAILY 12/23 1115 AC 12/26 PO 12/31 0859 0829 Cyproheptadine HCl 4 MG DAILY 12/18 899 AC 12/26 PO 0827 Divalproex Sodium 500 MG DAILY 12/18 899 AC 12/26 PO 0824 Divalproex Sodium 250 MG AT BEDTIME 12/17 2100 AC 12/25 PO 204 Donepezil HCl 10 MG DAILY 12/18 899 AC 12/26 PO 0824 Erythromycin 1 LILLIAM 4 TIMES/DAY 12/19 1300 AC 12/26 OPH 0830 Furosemide 20 MG DAILY 12/25 1400 AC 12/26 PO 0825 Levothyroxine Sodium 0.075 MG DAILY AC 12/18 07 AC 12/26 PO 0616 Metoprolol Tartrate 12.5 MG BID 12/21 2100 AC 12/26 PO 0825 Multivitamins 1 TAB DAILY 12/18 899 AC 12/26 Therapeutic PO 08 Pantoprazole Sodium 40 MG DAILY 12/26 1458 DC IV Senna 187 MG AT BEDTIME PRN 12/20 1100 AC 12/24 PO 1137 Trazodone HCl 100 MG QPM 12/17 2100 AC 12/25 PO 2041 Impression/Plan Impression/Problem List Impression: A: 87 year old female with past medical history significant for severe , HLD, bipolar, Graves' disease, Alzheimer dementia, depression, history of breast cancer, hypertension, severe aortic stenosis and recently admitted with altered mental status, hypothyroidism, and right lower extremity cellulitis treated with a course of antibiotics presenting for CHF and found to have hypotension, elevated troponins, and new paroxysymal atrial fibrillation. P: #CHF with pulmonary edema and acute hypoxemic respiratory failure in the setting of severe Initial CXR revaeled: Hilar vascular engorgement, early interstitial edema, and trace effusions. Probnp 9520 Last echo July 2017 revealed LVEF >65% with severe Aortic stenosis. Echo: EF >55% with severe Repeat CXR: Mild residual interstitial edema. Improved aeration right lateral lower lungs. -cont lasix po per cardiology. be careful as patient has severe . BP very sensitive to lasix. -Family at this time does not want any procedures including cath + TAVR #Hypotension most likely due to overdiuresis and new paroxysmal afib Upon admission to the telemetry floor the patient was found to have hypoxia despite 4 L of oxygen. The patient received an extra dose of Lasix. She then became hypotensive 70s/doppler and was given NS bolus 250ml x1. She was also found to be tachycardic. EKG then revealed afib with V3-[address]- depression. Right side precordial EKG done, no ST-segment mirror image but 1-1.[address] elevation on V4-6. Cardiology recommended moving the patient to the ICU for amiodarone drip and an extra dose of 250ml NS bolus. Tylenol was given x1 for mild fever which may have contirbuted to the tachycardia. Blood cx x2 were drawn and lactic acid was draw. The patient returned to NSR around 1:30AM during admission day. She returned to afib 11:50pm on 12/18. 500ml NS bolus and 1 extra dose of amioadorne was given. She converted back to sinus at 2am. On 12/21 the patient had another episode of hypotension in tachycardia ?SVT with aberrancy after her a.m. dose of Lasix. The patient spontaneously converted about an hour later and blood pressure improved spontaneously. -No episodes of tachycardia/A. fib since starting metoprolol. BP stable and improved. HR well controlled in 60s. -Continue amiodarone by mouth BID. decrease to 200mg daily on 12/27 -Switched from heparin drip to Eliquis -cont monitoring vitals #NSTEMI Also found to have elevated troponin of 4.5. She was asymptomatic. She received full dose asapirin once and started on IV heparin drip. A statin was also started and beta wesley was held due to her CHF. Troponins trended to 2.38 then peaked to 6.19 -cont conservative management. -cont atorvastatin -cont aspirin #Lethargy/AMS possibly due to new onset of L conjunctivitis Patient found to be more lethargic than normal during admission. Also found to have L conjunctivitis. Held clonazepam x1 day and her mental status improved. Unclear if her MS improved from holding the benzo or improvement of her conjunctivitis and body becoming assimilated to the betablocker/amiodarone. She has remained more alert despite restarting the clonazepam. CT head no acute intracranial territorial infarction or hemorrhage. Moderate diffuse parenchymal volume loss and mild chronic white matter microangiopathy. Severe chronic frontoethmoid sinus disease. -L conjunctivitis has improved. dc'ed erythromycin -cont clonazepam #congested cough -f/u PA and lateral cxr -start mucinex -send sputum culture #PVD of RLE? Doppler pulses of b/l feet. Cold RLE -cont to monitor #chronic medical problems: osteopenia, bipolar, Graves' disease, Alzheimer dementia, depression, history of breast cancer, hypertension -cont alendronate, vitamind d, donepezil, depakote, cyproheptadine,levothyroxine , aripprazole, trazodone, clonazepam Chopped mechanical and thin diet Jori DNR/DNI Contact Tori (daughter) [phone] Problem List: 1. Afib 2. CHF (congestive heart failure) Pain Ratin Tomorrow's Labs & Rationales: cbc icu Plan DVT/Prophylaxis: krysta Guidry MD,darcie 12/26/17 1737: Attending MD Review Statement Attending Sign Off Attending Cosign Statement: I have: examined this patient, reviewed aval EMR data, discussd w/resident/PA/ BOAT PATCHER PLASTIC, agreed w/resident/PA/BOAT PATCHER PLASTIC. Other Findings: 87F PMH severe , HLD, bipolar, Graves' disease, Alzheimer dementia, depression , history of breast cancer, hypertension, severe aortic stenosis admitted to ICU initially with acute CHF, developed hypotension that required IV hydration, rapid atrial fibrillation with hypotension now doing well on Amiodarone and Eliquis. Today patient has no complaints. She has a deep congested cough. She has coarse breath sounds bilaterally. Heart rate is well controlled. 1. Acute systolic CHF (resolved) 2. Acute hypoxemic respiratory failure (resolved) 3. Severe 4. Rapid atrial fibrillation Plan - Continue on telemetry - Obtain CXR PA/Lat - Send sputum culture - Continue Amiodarone, Metoprolo, Lasix and Eliquis - Follow cardiology and pulmonary recommendations - Continue home medications - DVT PPx
--- NOTE | 2017-12-26 15:27 | PN- Cardiology ---
Subjective Subjective: * Patient is not expressing any complaints at this time. * A congested cough is noted. * Patient and family do not want to pursue invasive procedures. Objective Vital Signs and I&Os Vital Signs Date Time Temp Pulse Resp B/P B/P Pulse O2 O2 Flow FiO2 Mean Ox Delivery Rate 12/27 799 94 Nasal 3.0L Cannula 12/27 799 98.4 66 24 98/52 94 Nasal 3.0L Cannula 12/26 0000 94 Nasal 2.0L Cannula 12/26 0000 98.3 64 28 118/62 94 Nasal 2.0L Cannula 12/26 2043 74 128/60 12/25 204 74 128/60 12/25 1831 18 92 Room Air 12/26 1599 94 Intake & Output 12/26 0000 12/25 1600 12/25 0000 Intake Total 600 60 240 560 120 240 Output Total 725 400 950 300 200 400 Balance -125 -340 -710 260 -80 -160 Intake, IV 0 Intake, Oral 600 60 240 560 120 240 Number 0 1 1 0 Bowel Movements Output, Urine 725 400 950 300 200 400 Patient 144 lb 143 lb Weight Weight Bed scale Measurement Method Physical Exam: General: WD/WN female in NAD Neck: no JVD Heart: RRR with 3/6 systolic murmur Lungs: upper airway congestion Extremities: no edema Assessment/Plan Assessment/Plan * Paroxysmal atrial fibrillation. Now in sinus rhythm on Amiodarone. Continue at 200mg daily. Continue to anticoagulate with Eliquis/ * Change Lasix to 40mg daily. * Congested cough. No current fever or increased WBC count although patient did not do well on swallow study. Begin a Mucolytic agent. Continue telemetry? Yes
[2017-12-26 16:08] VITALS: BP 136/88
[2017-12-26 22:39] VITALS: BP 102/74
--- NOTE | 2017-12-26 22:55 | RADIOLOGY REPORT ---
EXAMINATION: XR CHEST CLINICAL INFORMATION: Congestion. Cough. COMPARISON: 12/21/2017 TECHNIQUE: 2 views of the chest were obtained. FINDINGS: The lungs are well expanded. There is diffuse bronchial wall thickening. Mild interstitial prominence. No pleural effusion or pneumothorax. No dense consolidation. The cardiomediastinal silhouette is normal in size with a calcified aorta. Left axillary surgical clips noted. Multilevel degenerative changes of the spine. IMPRESSION: No dense consolidation. Bronchial wall thickening can be seen with a small airways process such as asthma or atypical/viral infection.
--- NOTE | 2017-12-26 23:40 | Event Note ---
Event Note Event Note: Patient was noted to desaturate to 77% routine vital sign check. Respiratory rate was 34. On exam, she was lethargic with heavy breathing. Chest x-ray shows bronchial wall thickening and ABG reveals hypoxia with mild hypercarbia. EKG showed no ST or T-wave changes. Troponin is pending. She was placed on BiPAP and is now saturating 94%. We will continue BiPAP and monitor closely.
[2017-12-27 07:31] VITALS: BP 130/64
[2017-12-27 08:28] LABS: ABSOLUTE BASOPHIL COUNT 0 /CUMM (0.0-0.2); ABSOLUTE EOSINOPHIL COUNT 0 /CUMM (0.0-0.7)
[2017-12-27 08:44] LABS: ABSOLUTE LYMPH COUNT 0.7 /CUMM (1.2-3.4); BASOPHIL % 0 % (0.0-2.0); EOSINOPHIL % 0 % (0-5); GRANULOCYTE % 91.8 % (42.2-75.2); HEMATOCRIT 39.8 % (37-47); MEAN CORPUSCULAR HGB 28.7 PG (27.0-31.0); MEAN CORPUSCULAR HGB CONC 32.7 G/DL (33.0-37.0); MEAN PLATELET VOLUME 9.1 FL (7.4-10.4); PLATELET COUNT 214 /CUMM (130-400); RED BLOOD CELL CT 4.53 /CUMM (4.20-5.40)
[2017-12-27 08:47] LABS: WHITE BLOOD CELL COUNT 21.8 /CUMM (4.8-10.8)
--- NOTE | 2017-12-27 08:55 | PN- Housestaff ---
Jorgito CHRISTINE,[facility] 12/27/17 0855: Subjective Follow-up For: CHF Complaints: pt unable to provide hx Tele-Events Since Last Visit: NSR with HR 66-82. No overnight events. Subjective: Patient seen and examined at bedside. She is lethargic and unable to communicate much. Review of Systems Constitutional: Reports: no symptoms. Objective Last 24 Hrs of Vital Signs/I&O Vital Signs Date Time Temp Pulse Resp B/P B/P Pulse O2 O2 Flow FiO2 Mean Ox Delivery Rate 12/27 1600 Nasal 60% Cannula 12/27 1420 98.9 80 22 90/50 97 12/27 1245 94 Nasal 60% Cannula 12/27 1000 98/00 12/27 0919 94 BIPAP 60% 12/27 0815 111 94 12/27 0800 BIPAP 60% 12/27 0731 97.7 98 22 130/64 98 Room Air 12/27 0728 62 102/74 12/27 0727 62 102/74 12/27 0531 62 98 12/27 0305 71 97 12/27 0302 70 98 12/27 0032 71 94 12/27 0000 93 BIPAP 100% 12/26 2250 89 92 12/26 2239 98.3 73 34 102/74 86 12/26 2142 73 102/72 12/26 2137 73 102/74 Intake & Output 12/27 1600 12/27 0800 12/27 0000 Intake Total 0 Output Total 100 450 Balance 0 -100 -450 Intake, Oral 0 Number 1 Bowel Movements Output, Urine 100 450 Patient 129 lb Weight Physical Exam General Appearance: Cooperative, Moderate Distress, awake, lethargic Skin: No Rashes, No Breakdown Skin Temp/Moisture Exam: Cool/Dry Sepsis Skin Exam (color): Normal for Ethnicity HEENT: Atraumatic Cardiovascular: Normal S1, Normal S2, HELGA Lungs: Normal Air Movement Abdomen: Soft, No Tenderness Extremities: No Edema Last 24 Hrs of Lab/Nicolás Results Last 24 Hrs of Labs/Mics: Laboratory Tests 12/27/17 0637: Anion Gap 11, Estimated GFR 36 L, BUN/Creatinine Ratio 28.6 H, Calcium 8.6, Phosphorus 6.6 H, Magnesium 2.2, CBC w Diff MAN DIFF ORDERED, RBC 4.53, MCV 88.0, MCH 28.7, MCHC 32.7 L, RDW 15.0 H, MPV 9.1, Gran % 91.8 H, Lymphocytes % 3.4 L, Monocytes % 4.8, Eosinophils % 0, Basophils % 0, Absolute Granulocytes 20.0 H, Segmented Neutrophils 74, Band Neutrophils 8 H, Absolute Lymphocytes 0.7 L, Lymphocytes 11 L, Monocytes 6, Absolute Monocytes 1.0 H, Absolute Eosinophils 0, Basophils 1, Absolute Basophils 0, Platelet Estimate ADEQUATE, Normocytic RBCs VERIFIED, Normochromic RBCs VERIFIED 12/26/17 2255: Troponin I 0.04 12/26/170: pH 7.42, pCO2 46 H, pO2 51 L, HCO3 30 H, ABG O2 Sat (Measured) 82.0 L, P-50 (Temp Corrected) Y, Carboxyhemoglobin 1.2 L, O2 Concentration % 60%, Temperature 98.3, O2 Delivery Method PRB, Phlebotomy Draw Site RIGHT RADIAL 12/26/17 1700: Sodium Cancelled, Potassium Cancelled, Chloride Cancelled, Carbon Dioxide Cancelled, Anion Gap Cancelled, BUN Cancelled, Creatinine Cancelled, Glucose Cancelled, Calcium Cancelled, Phosphorus Cancelled, Magnesium Cancelled, Total Bilirubin Cancelled, AST Cancelled, ALT Cancelled, Albumin Cancelled Microbiology 12/26 2246 LOWER RESP: Respiratory Culture - RES 12/26 2246 LOWER RESP: Gram Stain - RES Assessment/Plan Assessment: 87 year old female with past medical history significant for severe , HLD, bipolar, Graves' disease, Alzheimer dementia, depression, history of breast cancer, hypertension, severe aortic stenosis and recently admitted with altered mental status, hypothyroidism, and right lower extremity cellulitis treated with a course of antibiotics presenting for CHF and found to have hypotension, elevated troponins, and new paroxysymal atrial fibrillation on admission. After initial stabilization in the ICU she was transferred to the telemetry floor. Assessment: 1. Acute Hypoxemic Respiratory Failure 2. CHF 3. NSTEMI 4. Hypotension Plan: * Off tele. Patient has been made comfort measures after discussing with family. * She will be transferred to general medicine floor. * Continue supplemental oxygen * Continue Lasix, Eliquis, Amiodarone, Abilify, Depakote, Metoprolol * Discontinue non essential medications: Statin, multivitamins, * Hospice consult in am. * Diet: Regular * DVT Prophylaxis: On Eliquis * Code: QUANTITATIVE ASSOCIATE Problem List: 1. Afib Pain Ratin Pain Location: none Pain Goal: Remain pain free Pain Plan: none Tomorrow's Labs & Rationales: none Diego Guidry MD 12/27/17 1149: Attending MD Review Statement Attending Statement Attending MD Statement: examined this patient, discuss w/resident/PA/TELECASTING TECHNICIAN, agreed w/resident/PA/TELECASTING TECHNICIAN, reviewed EMR data (avail) Attending Assessment/Plan: 87F PMH severe , HLD, bipolar, Graves' disease, Alzheimer dementia, depression , history of breast cancer, hypertension, severe aortic stenosis admitted to ICU initially with acute CHF, developed hypotension that required IV hydration, rapid atrial fibrillation with hypotension now doing well on Amiodarone and Eliquis. Patient is worsening. She is now on high flow oxygen and coughing up pink frothy sputum with intermittent thick yellow sputum. Resident had discussion with patient's and the decision was made to covert the patient to comfort measures only. 1. Acute systolic CHF (resolved) 2. Acute hypoxemic respiratory failure (resolved) 3. Severe 4. Rapid atrial fibrillation Plan - Discontinue telemetry - May continue Amiodarone, Metoprolo, Lasix and Eliquis if family wishes - Morphine PRN - Scopolamine patch - Glycopyrrolate PRN - Hospice consult
--- NOTE | 2017-12-27 08:58 | PN- Cardiology ---
Subjective Subjective: * Patient is now on BIPAP due to respiratory distress. A congested cough noted yesterday. * sinus rhythm * chest X-ray shows bronchial thickening consistent with asthma * Patient and family are not interested in invasive therapy. Objective Vital Signs and I&Os Vital Signs Date Time Temp Pulse Resp B/P B/P Pulse O2 O2 Flow FiO2 Mean Ox Delivery Rate 12/27 0815 111 94 12/27 0731 97.7 98 22 130/64 98 Room Air 12/27 0728 62 102/74 12/27 0727 62 102/74 12/27 0531 62 98 12/27 0305 71 97 12/27 0302 70 98 12/27 0032 71 94 12/27 0000 93 BIPAP 100% 12/26 2250 89 92 12/26 2239 98.3 73 34 102/74 86 12/26 2142 73 102/72 12/26 2137 73 102/74 12/26 1608 97.9 71 30 136/88 71 12/26 1600 98 Nasal 3.0L Cannula Intake & Output 12/27 1600 12/27 0800 12/27 0000 12/26 1600 12/26 0800 12/26 0000 Intake Total 600 60 240 Output Total 100 450 725 400 950 Balance -100 -450 -125 -340 -710 Intake, IV 0 Intake, Oral 600 60 240 Number 1 0 Bowel Movements Output, Urine 100 450 725 400 950 Patient 129 lb 144 lb Weight Weight Bed scale Measurement Method Physical Exam: General: WD/WN female in NAD Neck: no JVD Heart: RRR with 3/6 systolic murmur Lungs: upper airway congestion, no crackles Extremities: no edema Assessment/Plan Assessment/Plan * Paroxysmal atrial fibrillation. Now in sinus rhythm on Amiodarone. Continue at 200mg daily. Continue to anticoagulate with Eliquis. * Continue Lasix at 40mg daily. * Congested cough. No current fever or increased WBC count or infiltrate on chest X-ray but patient likely has some bronchospasm and possible bronchitis. Consider antibiotic therapy, steroids and beta agonist inhalers. Continue telemetry? Yes
[2017-12-27 10:00] VITALS: BP 98/00
--- NOTE | 2017-12-27 10:18 | Discharge Summary ---
Visit Information Visit Dates Admission Date: 12/17/17 Hospital Course Course Attending Physician: Francisco Mcgregor MD Primary Care Physician: Louis CHRISTINE,Gregory Lakhani Hospital Course: A: 87 year old female with past medical history significant for severe , HLD, bipolar, Graves' disease, Alzheimer dementia, depression, history of breast cancer, hypertension, severe aortic stenosis and recently admitted with altered mental status, hypothyroidism, and right lower extremity cellulitis treated with a course of antibiotics presenting for CHF and found to have hypotension, elevated troponins, and new paroxysymal atrial fibrillation. She was originally admitted to the telemetry surface but was moved to the ICU instead for an amiodarone drip. As she became more stable, she was moved officially to the telemetry floor. P: #CHF with pulmonary edema and acute hypoxemic respiratory failure in the setting of severe Initial CXR revealed hilar vascular engorgement, early interstitial edema, and trace effusions. Her probnp was 9520. Last echo July 2017 revealed LVEF >65% with severe Aortic stenosis. Repeat echo revealed EF >55% with severe . She was gently diuresed as needed due to her severe and as her BP was sensitive to lasix. Repeat CXR after diuretic treatment revealed mild residual interstitial edema and improved aeration right lateral lower lungs. There were discussions between the medical team and the patient's family regarding TAVR however they do not want any procedures. She was discharged with po lasix. #Hypotension most likely due to overdiuresis and new paroxysmal afib Upon admission to the telemetry floor the patient was found to have hypoxia despite 4 L of oxygen. She received lasix and became hypotensive 70s/doppler. She received a NS bolus 250ml and was found to be tachycardic. EKG then revealed afib with V3-[address]-depression. Right side precordial EKG was also performed which reavealed no ST-segment mirror image but 1-1.[address] elevation on V4-6. Cardiology recommended moving the patient to the ICU for amiodarone drip, IV heparin and an extra dose of 250ml NS bolus. Tylenol was given for mild fever which may have contirbuted to the tachycardia. The patient returned to NSR around 1:30AM during admission day while on the amiodarone drip. She returned to afib around 11:50pm on 12/18 and was once again found to be hypotensive. An additional 500ml NS bolus and 1 extra dose of amiodarone was given. She converted back to sinus at 2am on 12/19. On 12/21 the patient had another episode of hypotension associated with her tachycardia after her am dose of lasix. The patient spontaneously converted about an hour later and blood pressure improved spontaneously. She was started on metoprolol and did not have any episodes of tachycardia/afib since then. Her BP remained stable and was improved with HR controlled in the 60s. She then transitioned from IV amiodarone to po amiodarone. She was switched from IV heparin drip to po eliquis. #NSTEMI The patient's initial troponins were found to be elevated 4.5. They peaked at 6.14 and down trended. She was asymptomatic. She received full dose aspirin and was started on IV heparin drip. She was also started on atorvastatin. Beta blockers were intially held but were then started as her CHF improved with lasix. The family did not want any cath to be performed and elected for conservative management at this time. #Lethargy/AMS possibly due to new onset of L conjunctivitis The patient found to be more lethargic than normal during admission according to family. She was also found to have L conjunctivitis. We thought a possible cause may have been her clonazepam. She did have improvement in her mental status after it was held initially from 1 day. However, it was unclear if her MS improved from holding the benzo or improvement of her conjunctivitis and her body becoming assimilated to the betablocker/amiodarone. She has remained more alert despite restarting the clonazepam. CT head revealed no acute intracranial territorial infarction or hemorrhage, moderate diffuseparenchymal volume loss and mild chronic white matter microangiopathy and severe chronic frontoethmoid sinus disease. Her erythromycin was discontinued after 1 week of treatment. #Congested cough The patient was found to have a congested cough later in admission. CXR revealed bronchial wall thickening can be seen with a small airways process such as asthma or atypical/viral infection. She was treated with mucinex and nebs. She remained afebrile but her WBC was elevated to 21.8 #PVD of RLE? The patient may have peripheral vascular disease of the RLE as it has been colder than the left. However, doppler pulses were detectabke in bilateral feet. She should follow up with her PCP. #Chronic medical problems: osteopenia, bipolar, Graves' disease, Alzheimer dementia, depression, history of breast cancer, hypertension Continued alendronate, vitamind d, donepezil, depakote, cyproheptadine, levothyroxine, aripprazole, trazodone, clonazepam Allergies: Coded Allergies: Influenza Virus Vaccines (UNKNOWN 07/10/17) haloperidol (UNKNOWN 07/10/17) Disposition Summary Disposition Principal Diagnosis: Acute CHF with pulmonary edema and acute hypoxemic respiratory failure in the setting of severe Additional Diagnosis: Hypotension most likely due to overdiuresis and new paroxysmal afib NSTEMI Lethargy/AMS possibly due to new onset of L conjunctivitis Congested cough Possible RLE pepripheral vascular disease Discharge Disposition: SNF Discharge Instructions General Discharge Information Code Status: Do Not Resucitate/Intubat Patient's Diet: Heart healthy Patient's Activity: As tolerated Follow-Up Instructions/Appts: Please follow up with your PCP Please follow up with your vendor relationship manager.
--- NOTE | 2017-12-27 10:47 | Patient Discharge Instructions ---
Discharge Instructions General Discharge Information Special Instructions: Please follow up with your PCP Please follow up with your retail delivery driver. Acute Coronary Syndrome Inclusion Criteria At DC or during hospital stay patient has or had the following: Discharge Core Measures Meds if any: Prescribed or Continued at Discharge Meds if any: NOT Prescribed or Continued at Discharge Congestive Heart Failure Inclusion Criteria At DC or during hospital stay patient has or had the following: Discharge Core Measures Meds if any: Prescribed or Continued at Discharge Meds if any: NOT Prescribed or Continued at Discharge Cerebrovascular accident Inclusion Criteria At DC or during hospital stay patient has or had the following: CVA/TIA Diagnosis No Discharge Core Measures Meds if any: Prescribed or Continued at Discharge Meds if any: NOT Prescribed or Continued at Discharge Venous thromboembolism Discharge Core Measures - Per Current guidelines, there needs to be overlap - treatment for the first 5 days of Warfarin therapy. - If discharged on Warfarin prior to 5 days of - overlap therapy, the patient will need to be - assessed for post discharge needs including - *Post discharge parental anticoagulation - *Warfarin and/or parental anticoagulation education - *Follow up date to check INR post discharge Meds if any: Prescribed or Continued at Discharge Note: Overlap Therapy is Warfarin and Anticoagulant Meds if any: NOT Prescribed or Continued at Discharge
[2017-12-27] MEDS ORDERED: GUAIFENESIN ER600 MG PO (10:52)
[2017-12-27] MEDS ORDERED: AMIODARONE HCL200 M1 PO (10:52)
[2017-12-27] MEDS ORDERED: ASPIRIN81 M4 PO (10:52)
[2017-12-27] MEDS ORDERED: LASIX40 M1 PO (10:52)
[2017-12-27] MEDS ORDERED: METOPROLOL TART25 M1 PO (10:52)
[2017-12-27] MEDS ORDERED: ELIQUIS5 M1 PO (10:52)
--- NOTE | 2017-12-27 11:18 | Event Note ---
Event Note Event Note: Spoke to patient's regarding overnight events and her poor prognosis. He stated that he did not wish her to be on Bipap either and wants her comfortable. Decision was made by to make her comfort measures.
[2017-12-27 14:20] VITALS: BP 90/50
[2017-12-28 06:01] VITALS: BP 98/60
--- NOTE | 2017-12-28 09:02 | PN- Housestaff ---
See Addendum Subjective Follow-up For: 1. Acute Hypoxemic Respiratory Failure 2. CHF 3. NSTEMI 4. Hypotension Subjective: at bedside reports patient still "incoherent". Patient is requiring HF oxygen and remains lethargic Review of Systems Constitutional: Reports: see HPI. Objective Last 24 Hrs of Vital Signs/I&O Vital Signs Date Time Temp Pulse Resp B/P B/P Pulse O2 O2 Flow FiO2 Mean Ox Delivery Rate 12/28 0839 98/60 12/28 0838 99.5 84 26 98/60 12/28 0829 Nasal 100% Cannula 12/28 0601 99.5 84 26 98/60 85 Non 40% ReBreather 12/28 0055 88 Nasal 100% Cannula 12/28 0000 82 Nasal 100% Cannula 12/27 2030 82 Nasal 100% Cannula 12/27 1930 99.9 12/27 1600 Nasal 60% Cannula 12/27 1420 98.9 80 22 90/50 97 12/27 1245 94 Nasal 60% Cannula Intake & Output 12/28 1600 12/28 0800 12/28 0000 Intake Total 0 0 Output Total 225 Balance -225 0 Intake, Oral 0 0 Output, Urine 225 Patient 136 lb Weight Physical Exam General Appearance: Lethargic, noncommunicative, opens eyes to tactile stimuli Cardiovascular: 2/6 systolic murmur Lungs: Decreased breath sounds Abdomen: Normal Bowel Sounds, Soft, No Tenderness Extremities: No Edema Current Medications: Current Medications Sig/Cordell Start time Last Medication Dose Route Stop Time Status Admin Acetylcysteine 2 ML ONCE ONE 12/27 1600 CAN INH 12/27 1601 Albuterol Sulfate 3 ML BID 12/27 0917 AC 12/28 INH 0806 Alendronate Sodium 70 MG Larose@0700 12/20 07 DC 12/27 PO 0727 Alprazolam 0.25 MG ONCE ONE 12/28 0230 CAN PO 12/28 0231 Amiodarone HCl 200 MG DAILY 12/27 0900 AC 12/27 PO 07 Apixaban 5 MG BID 12/24 1230 AC 12/27 PO 0727 Aripiprazole 5 MG DAILY AC 12/18 0700 AC 12/27 PO 0726 Aspirin 81 MG DAILY 12/18 09 DC 12/27 PO 07 Atorvastatin Calcium 80 MG 1700 12/18 1700 DC 12/26 PO 1708 Calcium/Vitamin D 1 TAB DAILY 12/18 09 DC 12/27 PO 0727 Cholecalciferol 400 IU DAILY 12/18 09 DC 12/27 PO 0727 Clonazepam 0.5 MG DAILY 12/23 1115 AC 12/27 PO 12/31 0859 0731 Cyproheptadine HCl 4 MG DAILY 12/18 09 AC 12/27 PO 0728 Divalproex Sodium 500 MG DAILY 12/18 09 AC 12/27 PO 0727 Divalproex Sodium 250 MG AT BEDTIME 12/17 2100 AC 12/26 PO 2144 Donepezil HCl 10 MG DAILY 12/18 09 AC 12/27 PO 0726 Furosemide 40 MG DAILY 12/27 09 AC 12/27 PO 0736 Glycopyrrolate 200 MCG ONE ONE 12/27 2014 DC 12/27 IV 12/27 Guaifenesin 600 MG Q12 12/26 2100 AC 12/27 PO 0731 Levothyroxine Sodium 0.075 MG DAILY AC 12/18 07 AC 12/27 PO 0726 Lorazepam 0.5 MG ONCE ONE 12/28 0245 DC 12/28 IV 12/28 0246 0400 Lorazepam 0.5 MG ONCE ONE 12/27 2014 DC 12/27 IV 12/27 Metoprolol Tartrate 12.5 MG BID 12/21 2100 AC 12/27 PO 0728 Morphine Sulfate 1 MG Q2P PRN 12/28 0530 AC 12/28 IV 0521 Morphine Sulfate 1 MG Q4P PRN 12/27 1330 DC 12/28 IV 0234 Multivitamins 1 TAB DAILY 12/18 09 DC 12/27 Therapeutic PO 07 Scopolamine HBr 1 PAT ONE ONE 12/27 1600 DC 12/27 TOP 12/27 1601 1625 Senna 187 MG AT BEDTIME PRN 12/20 1100 AC 12/24 PO 1137 Trazodone HCl 100 MG QPM 12/17 2100 AC 12/26 PO 2145 Assessment/Plan Assessment: -87 year old female with past medical history significant for severe , HLD, bipolar, Graves' disease, Alzheimer dementia, depression, history of breast cancer, hypertension, severe aortic stenosis and recently admitted with altered mental status, hypothyroidism, and right lower extremity cellulitis treated with a course of antibiotics presenting for CHF and found to have hypotension, elevated troponins, and new paroxysymal atrial fibrillation on admission. Assessment: 1. Acute Hypoxemic Respiratory Failure 2. CHF 3. NSTEMI 4. Hypotension Plan: * Patient has been made comfort measures after discussing with family * Continue supplemental oxygen to maintain O2 saturation> 92% * Continue Lasix, Eliquis, Amiodarone, Abilify, Depakote, Metoprolol * Hospice consulted, spoke with [place] who reports she will have someone talk to the today. 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 Lethargy 2. CHF (congestive heart failure) Pain Ratin Pain Location: NA Pain Goal: Remain pain free Pain Plan: NA Tomorrow's Labs & Rationales: CBC, BEP
[2017-12-28 15:00] VITALS: BP 90/50
[2017-12-29 07:12] VITALS: BP 86/52
[2017-12-29 08:13] LABS: ABSOLUTE BASOPHIL COUNT 0 /CUMM (0.0-0.2); ABSOLUTE EOSINOPHIL COUNT 0 /CUMM (0.0-0.7); ABSOLUTE LYMPH COUNT 0.4 /CUMM (1.2-3.4); ABSOLUTE MONOCYTE COUNT 0.7 /CUMM (0.10-0.60); BASOPHIL % 0 % (0.0-2.0); EOSINOPHIL % 0 % (0-5); GRANULOCYTE % 95.1 % (42.2-75.2); HEMATOCRIT 35.7 % (37-47); MEAN CORPUSCULAR HGB 29.1 PG (27.0-31.0); MEAN CORPUSCULAR HGB CONC 32.9 G/DL (33.0-37.0); MEAN CORPUSCULAR VOLUME 88.4 FL (81.0-99.0); MEAN PLATELET VOLUME 9.3 FL (7.4-10.4); PLATELET COUNT 208 /CUMM (130-400); RBC DISTRIBUTION WIDTH 15.5 % (11.5-14.5); RED BLOOD CELL CT 4.04 /CUMM (4.20-5.40)
--- NOTE | 2017-12-29 09:07 | PN- Housestaff ---
Subjective Follow-up For: 1. Acute Hypoxemic Respiratory Failure 2. CHF 3. NSTEMI 4. Hypotensio Subjective: Family at bedside reports patient said few words to them and yesterday was uncomfortable due to pain. Patient still noncommunicative. Family reports they were told that the patient code status should stay as SERVICE CAPTAIN and does not need hospice. They were explained in brief the role of hospice and they agreed to speak with hospice and conside laird of status for patient's comfortability Review of Systems Constitutional: Reports: see HPI. Objective Last 24 Hrs of Vital Signs/I&O Vital Signs Date Time Temp Pulse Resp B/P B/P Pulse O2 O2 Flow FiO2 Mean Ox Delivery Rate 12/29 07 97.6 84 32 86/52 91 Nasal 35% Cannula 12/29 0610 101.5 12/29 0606 101.5 12/29 0000 Nasal Cannula 12/28 1947 Nasal 100% Cannula 12/28 1651 Nasal 100% Cannula 12/28 1600 Nasal 100% Cannula Intake & Output 12/29 1600 12/29 0800 12/29 0000 Intake Total 100 0 Output Total 150 400 Balance -50 -400 Intake, IV 100 Intake, Oral 0 Output, Urine 150 400 Patient 126 lb 127 lb Weight Weight Bed scale Bed scale Measurement Method Physical Exam General Appearance: Disoriented, noncommunicative Cardiovascular: 2/6 systolic murmur Lungs: Decreased breath sounds Abdomen: Normal Bowel Sounds, Soft, No Tenderness Extremities: No Edema Current Medications: Current Medications Sig/Cordell Start time Last Medication Dose Route Stop Time Status Admin Acetaminophen 1,000 MG .STK-MED ONE 12/29 1537 DC IV 12/29 1538 Acetaminophen 1,000 MG Q6P PRN 12/29 1000 DCD N/A 1 UNIT IV Acetaminophen 1,000 MG ONCE ONE 12/29 0600 DC 12/29 N/A 1 UNIT IV 12/29 0614 0606 Albuterol Sulfate 3 ML Q4P PRN 12/28 1430 DCD INH Amiodarone HCl 200 MG DAILY 12/27 0900 DCD 12/27 PO 0727 Apixaban 5 MG BID 12/24 1230 DCD 12/27 PO 0727 Aripiprazole 5 MG DAILY AC 12/18 0700 DCD 12/27 PO 0726 Clonazepam 0.5 MG DAILY 12/23 1115 DCD 12/27 PO 12/31 0859 0731 Cyproheptadine HCl 4 MG DAILY 12/18 899 DCD 12/27 PO 0728 Divalproex Sodium 500 MG DAILY 12/18 899 DCD 12/27 PO 07 Divalproex Sodium 250 MG AT BEDTIME 12/17 2099 DCD 12/26 PO 2144 Donepezil HCl 10 MG DAILY 12/18 899 DCD 12/27 PO 0726 Furosemide 40 MG DAILY 12/27 899 DCD 12/27 PO 0736 Guaifenesin 600 MG Q12 12/26 2099 DCD 12/27 PO 0731 Levothyroxine Sodium 0.075 MG DAILY AC 12/18 699 DCD 12/27 PO 0726 Metoprolol Tartrate 12.5 MG BID 12/21 2099 DCD 12/27 PO 0728 Morphine Sulfate 1 MG Q2P PRN 12/28 529 DCD 12/29 IV 0956 Senna 187 MG AT BEDTIME PRN 12/20 1100 DCD 12/24 PO 1137 Trazodone HCl 100 MG QPM 12/17 2099 DCD 12/26 PO 2145 Last 24 Hrs of Lab/Nicolás Results Last 24 Hrs of Labs/Mics: Laboratory Tests 12/29/17 0751: Anion Gap 11, Estimated GFR 29 L, BUN/Creatinine Ratio 50.6 H, CBC w Diff MAN DIFF ORDERED, RBC 4.04 L, MCV 88.4, MCH 29.1, MCHC 32.9 L, RDW 15.5 H, MPV 9.3, Gran % 95.1 H, Lymphocytes % 1.7 L, Monocytes % 3.2, Eosinophils % 0, Basophils % 0, Absolute Granulocytes 20.0 H, Segmented Neutrophils 77 H, Band Neutrophils 16 H, Absolute Lymphocytes 0.4 L, Lymphocytes 4 L, Monocytes 2, Absolute Monocytes 0.7 H, Absolute Eosinophils 0, Absolute Basophils 0, Metamyelocytes 1, Platelet Estimate VERIFIED BY SMEAR, Anisocytosis 1+ Assessment/Plan Assessment: Ms. Dumas is a 87 year old female with past medical history significant for severe , HLD, bipolar, Graves' disease, Alzheimer dementia, depression, history of breast cancer, hypertension, severe aortic stenosis and recently admitted with altered mental status, hypothyroidism, and right lower extremity cellulitis treated with a course of antibiotics presenting for CHF and found to have hypotension, elevated troponins, and new paroxysymal atrial fibrillation on admission. Assessment: 1. Acute Hypoxemic Respiratory Failure 2. CHF 3. NSTEMI 4. Hypotension Plan: * Continue supplemental oxygen to maintain O2 saturation> 92% * Continue IV Morphine 1 mg q2h PRN * Await Hospice discussion with family * No blood draws * Diet: Regular * DVT Prophylaxis: Eliquis * Code: SERVICE CAPTAIN Problem List: 1. Lethargy 2. CHF (congestive heart failure) 3. Elevated troponin Pain Ratin Pain Location: NA Pain Goal: Pain 4 or less Pain Plan: Morphine Tomorrow's Labs & Rationales: none
--- NOTE | 2017-12-29 11:56 | PN- Att Addend ---
Attending Addendum Attending Brief Note Patient seen and examined, she is lethargic. She is requiring high flow oxygen. Family's present at bedside. Patient currently is comfortable measures. She is admitted with acute hypoxic respiratory failure secondary to acute Diastolic CHF exacerbation as well as Severe . Patient did not improve therefore currently she is transferred to medicine floor from ICU and has been made comfort care. Hospice is consulted. Vital Signs Date Time Temp Pulse Resp B/P B/P Pulse O2 O2 Flow FiO2 Mean Ox Delivery Rate 12/29 0712 97.6 84 32 86/52 91 Nasal 35% Cannula 12/29 0610 101.5 12/29 0606 101.5 12/29 0000 Nasal Cannula 12/28 1947 Nasal 100% Cannula 12/28 1651 Nasal 100% Cannula 12/28 1600 Nasal 100% Cannula 12/28 1500 98.9 90 24 90/50 96 12/28 1408 Nasal 100% Cannula On exam; lethargic, requiring high flow Oxygen. CV; s1,s2, + systolivc murmur resp; decreased bs overall. abd; soft. Laboratory Tests 12/29 0751 Chemistry Sodium (137 - 145 mmol/L) 146 H Potassium (3.5 - 5.1 mmol/L) 4.9 Chloride (98 - 107 mmol/L) 99 Carbon Dioxide (22 - 30 mmol/L) 36 H Anion Gap (5 - 16) 11 BUN (7 - 17 mg/dL) 86 H Creatinine (0.5 - 1.0 mg/dL) 1.7 H Estimated GFR (>60 ml/min) 29 L BUN/Creatinine Ratio (7 - 25 %) 50.6 H Hematology CBC w Diff MAN DIFF ORDERED WBC (4.8 - 10.8 /CUMM) 21.0 H RBC (4.20 - 5.40 /CUMM) 4.04 L Hgb (12.0 - 16.0 G/DL) 11.8 L Hct (37 - 47 %) 35.7 L MCV (81.0 - 99.0 FL) 88.4 MCH (27.0 - 31.0 PG) 29.1 MCHC (33.0 - 37.0 G/DL) 32.9 L RDW (11.5 - 14.5 %) 15.5 H Plt Count (130 - 400 /CUMM) 208 MPV (7.4 - 10.4 FL) 9.3 Gran % (42.2 - 75.2 %) 95.1 H Lymphocytes % (20.5 - 51.1 %) 1.7 L Monocytes % (1.7 - 9.3 %) 3.2 Eosinophils % (0 - 5 %) 0 Basophils % (0.0 - 2.0 %) 0 Absolute Granulocytes (1.4 - 6.5 /CUMM) 20.0 H Segmented Neutrophils (42.2 - 75.2 %) 77 H Band Neutrophils (0.0 - 5.0 %) 16 H Absolute Lymphocytes (1.2 - 3.4 /CUMM) 0.4 L Lymphocytes (20.5 - 51.1 %) 4 L Monocytes (1.7 - 9.3 %) 2 Absolute Monocytes (0.10 - 0.60 /CUMM) 0.7 H Absolute Eosinophils (0.0 - 0.7 /CUMM) 0 Absolute Basophils (0.0 - 0.2 /CUMM) 0 Metamyelocytes (0.0 - 1.0 %) 1 Platelet Estimate (ADEQUATE) VERIFIED BY SMEAR Anisocytosis 1+ A/P: 87 y/o F with pmh sig for HLD, bipolar, Graves' disease, Alzheimer dementia , depression, history of breast cancer, hypertension, severe aortic stenosis admitted with acute hypoxic respiratory failure secondary to acute Diastolic CHF exacerbation in the setting of Severe . Patient will be evaluated by hospice today. Likely she will be converted to inpatient hospice. She'll be on comfort medications were all the unnecessary medications will be stopped. Patient will likely need morphine and scopolamine patch. She will be continued on oxygen. Will avoid any unnecessary blood draws. She can be given Tylenol for fevers.
== END 2017-12-29 11:27 | disposition hospice, home (50) | DRG 280 ==
LOC: ERH 09:54 → CRI 12:53 → ERHI 12:53 → ENRESERV 14:25 → ENTRNSPT 16:05 → EDTRNSPT 16:08 → EDTRNSPTSTS 16:08 → CRI 16:09 → 1NO 16:20 → CMPTRNSPT 16:59 → CRI 21:44 → ENTRNSPT 12-26 15:20 → EDTRNSPT 12-26 15:33 → EDTRNSPTSTS 12-26 15:33 → 1NO 12-26 15:57 → CMPTRNSPT 12-26 16:00 → ENTRNSPT 12-27 12:37 → 2NA 12-27 13:05 → EDTRNSPTSTS 12-27 13:08 → CMPTRNSPT 12-27 13:30 → 2NA 12-28 12:57
PROVIDERS: Emergency Medicine; Internal Medicine; Internal Medicine Critical Care Medicine; Internal Medicine Pulmonary Disease; Preventive Medicine Public Health & General Preventive Medicine; Student in an Organized Health Care Education/Training Program
PROC: 5A09357 Assistance with Respiratory Ventilation, Less than 24 Consecutive Hours, Continuous Positive Airway Pressure (ICD-10-PCS; principal; 2017-12-26)
DX: I11.0 Hypertensive heart disease with heart failure (principal); J96.01 Acute respiratory failure with hypoxia; I21.4 Non-ST elevation (NSTEMI) myocardial infarction; N17.9 Acute kidney failure, unspecified; I95.9 Hypotension, unspecified; I50.33 Acute on chronic diastolic (congestive) heart failure; Z51.5 Encounter for palliative care; G30.9 Alzheimer's disease, unspecified; I35.0 Nonrheumatic aortic (valve) stenosis; I48.0 Paroxysmal atrial fibrillation; I47.1 Supraventricular tachycardia; F02.80 Dementia in other diseases classified elsewhere, unspecified severity, without behavioral disturbance, psychotic disturbance, mood disturbance, and anxiety; H10.9 Unspecified conjunctivitis; E05.00 Thyrotoxicosis with diffuse goiter without thyrotoxic crisis or storm; F32.9 Major depressive disorder, single episode, unspecified; E03.9 Hypothyroidism, unspecified; Z90.710 Acquired absence of both cervix and uterus; R62.7 Adult failure to thrive; Z66 Do not resuscitate; Z85.3 Personal history of malignant neoplasm of breast; Z88.8 Allergy status to other drugs, medicaments and biological substances; Z88.7 Allergy status to serum and vaccine
CPT/HCPCS: 1NSP; 2NAP; 87184; CCU; 36415; 36592; 71045; 71046; 74230; 81001; 82436; 87040; 87070; 87071; 87086; 87147; 93005; 93010; 93306; 97110-GO; 97112-GO; 97161-GP; 97530-GO; J0131; J0282; J1644; J1650; J1940; J2060; J3490; J7040; J7608

== ENCOUNTER 2017-12-29 11:30 | Inpatient (IN) | payer OTHER ==
[~2017-12-29 11:30] MED LIST changes: +ALENDRONATE SOD70 M2 PO; +AMIODARONE HCL200 M1 PO; +ASPIRIN81 M4 PO; +DAILY MULTIPLE1 EACH PO; +ELIQUIS5 M1 PO; +GUAIFENESIN ER600 MG PO; +LASIX40 M1 PO; +LEVOTHYROXINE75 MCG PO; +METOPROLOL TART25 M1 PO; +VITAMIN D400 UNI2 PO
--- NOTE | 2017-12-29 11:46 | History & Physical ---
General Information and HPI Chief Complaint: admit to hospice Source of Information: family, old records Exam Limitations: clinical condition Associated Symptoms: dyspnea, hiccups, fever History of Present Illness: 87 y.o. F with PMhx of Alzheimer's disease, bipolar disorder, HTN, moderate- severe aortic stenosis, admitted with dyspnea, cough, progressive weakness. She has been treated for acute on chronic heart failure, PAF, NSTEMI, hypotension, now with worsening hypoxemic respiratory failure requiring bipap and changed to high flow oxygen and MARIO. She was placed on comfort measures yesterday and family now requesting hospice care given poor prognosis and wish for pt comfort and no life-prolonging measures. 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 Exam & Diagnostic Data Last 24 Hrs of Vital Signs/I&O Vital Signs Date Time Temp Pulse Resp B/P B/P Pulse O2 O2 Flow FiO2 Mean Ox Delivery Rate 12/29 1413 101.3 12/29 0800 Nasal 100% Cannula Physical Exam General Appearance Alert, No Acute Distress, tachypneic, with hiccups Skin warm,moist HEENT Atraumatic, high simon oxygen on Cardiovascular Normal S1, Normal S2, murmur Lungs RR-high 20s-low 30s; no audible secretions Abdomen Soft, No Tenderness Neurological eyes open and able to track, but not responsive to questions Extremities No Clubbing, No Cyanosis, No Edema Pelvic (FEMALE) moore catheter with clear,yellow urine Last 24 Hrs of Labs/Nicolás: 12/29/17: CBC with WBC 21, H/H 11.8/35.7; gran 95.1% Chem with Na 146, Bun 86, Cr 1.7, gfr 29 Diagnostic Data CXR Results 12/26/17:IMPRESSION: No dense consolidation. Bronchial wall thickening can be seen with a small airways process such as asthma or atypical/viral infection. Assessment/Plan Assessment: 87 y.o. Female with past history of Alzheimer's disease, bipolar disorder, moderate to severe aortic stenosis, admitted with acute hypoxemic respiratory failure due to acute on chronic heart failure with preserved EF, developed NSTEMI and PAF in hospital, now with MARIO, to be placed on hospice therapy per family wishes due to poor prognosis. Plan: For dyspnea, morphine 2 mg IV every 1 hours as needed For anxiety/restlessness/hiccups, ativan 0.5 mg IV every 4 hrs as needed For secretions, scopolamine patch on and Robinul 400mcg every 4 hrs as needed For fever, schedule APAP 650mg TX every 4 hrs and aspirin 300 mg TX every 4 hrs if T>101 and Tylenol ineffective
[2017-12-29 14:00] VITALS: BP 100/60
[2017-12-30 06:31] VITALS: BP 98/58
--- NOTE | 2017-12-31 15:16 | Discharge Summary ---
Visit Information Visit Dates Admission Date: 12/29/17 Discharge Date: 12/30/17 Hospital Course Course Attending Physician: Marianela Ochoa MD Primary Care Physician: Gregory Myers MD Hospital Course: 87 y.o. Female with past history of Alzheimer's disease, bipolar disorder, moderate to severe aortic stenosis, admitted with acute hypoxemic respiratory failure due to acute on chronic heart failure with preserved EF, developed NSTEMI and PAF in hospital, now with MARIO, to be placed on hospice therapy per family wishes due to poor prognosis. She was kept comfortable with morphine and ativan as well as acetaminophen and aspirin suppositories for fever, until she peacefully. Allergies: Coded Allergies: Influenza Virus Vaccines (UNKNOWN 07/10/17) haloperidol (UNKNOWN 07/10/17) Disposition Summary Disposition Principal Diagnosis: Acute hypocemic respiratory failure Acute on chronic heart failure with preserved ejection fraction Acute kidney injury Additional Diagnosis: [id number] myocardial infarction Paroxysmal atrial fibrillation Moderate to severe aortic stenosis Alzheimer disease Discharge Disposition: Discharge Instructions General Discharge Information Code Status: Hospice Patient's Diet: N/A Patient's Activity: N/A Follow-Up Instructions/Appts: N/A Copies To: Gregory Myers MD
== END 2017-12-30 06:48 | disposition expired ==
LOC: 2NA 11:30
DX: I21.4 Non-ST elevation (NSTEMI) myocardial infarction (principal); J96.01 Acute respiratory failure with hypoxia; N17.9 Acute kidney failure, unspecified; I13.0 Hypertensive heart and chronic kidney disease with heart failure and stage 1 through stage 4 chronic kidney disease, or unspecified chronic kidney disease; I50.9 Heart failure, unspecified; Z51.5 Encounter for palliative care; G30.9 Alzheimer's disease, unspecified; F02.80 Dementia in other diseases classified elsewhere, unspecified severity, without behavioral disturbance, psychotic disturbance, mood disturbance, and anxiety; F31.9 Bipolar disorder, unspecified; I48.0 Paroxysmal atrial fibrillation; I35.0 Nonrheumatic aortic (valve) stenosis; N18.9 Chronic kidney disease, unspecified; E03.9 Hypothyroidism, unspecified; Z85.3 Personal history of malignant neoplasm of breast; Z90.710 Acquired absence of both cervix and uterus
CPT/HCPCS: 2NAP; J0131